=== PATIENT | female | born 1980 | race Caucasian/White ===

== ENCOUNTER 2019-06-07 08:44 | Emergency (ER) | payer MEDICAID, SELFPAY ==
[2019-06-07 08:53] VITALS: PULSE 92; RESP 16; TEMP 36.7; O2SAT 98; BMI 23.8
--- NOTE | 2019-06-07 08:56 | ED_ITS ---
Entered by Dontrell Choe, acting as scribe for Naga Coreas DO Jun 07, 2019 08:44 HPI - Eye Problem General: Chief complaint: Eye Problems Stated complaint: Right eye pain Time Seen by Provider: 06/07/19 08:47 History of Present Illness: HPI Narrative: 39 yo female presents with right eye pain. Pt states that she rubbed her right eye, she felt like something is in it. Pt states that she might of had something on her hands when she rubbed her eye. chief complaint: eye pain and eye redness Onset (ago): day(s) Onset description: sudden Duration: constant Location: right eye Eye Symptoms: burning, redness and pain Place: home Severity: moderate If Pain, Quality: sharp Associated symptoms: Denies fever(s), headache(s), nausea, neck pain or vomiting Review of Systems Const: Denies: fever, chills, body aches, fatigue, malaise or night sweats Eyes: Reports: blurry vision and eye redness; Denies: change in vision ENMT: Denies: throat pain, oral sores/lesions, dental pain, nasal discharge or nasal congestion Card: Denies: chest pain, palpitations, irregular heart rhythm, edema, syncope, shortness of breath on exertion, shortness of breath when lying down or leg pain with exertion Resp: Denies: shortness of breath, productive cough, non-productive cough or wheezing GI: Denies: abdominal pain, nausea, vomiting, vomiting blood, coffee grounds in vomit, difficulty swallowing, heartburn/indigestion, diarrhea, constipation, cramping, blood in stool or black tarry stool : Denies: flank pain, painful urination, urinary frequency, urinary urgency, urinary incontinence or blood in urine Musc: Denies: neck pain, back pain, extremity pain, extremity swelling, joint pain or joint swelling Skin/Breast: Denies: rash, itching or redness Neuro: Denies: headache, numbness in extremities, weakness in extremities, changes in sensation, lack of coordination, difficulty walking, frequent falls, dizziness, vertigo or confusion Psych: Denies: anxiety, depression, loss of interest, visual hallucinations, auditory hallucinations, suicidal ideation or homicidal ideation Endo: Denies: excessive urination, excessive thirst, tired all the time or cold intolerance Tab/Lymph: Denies: easy bruising, easy bleeding, petechiae, enlarged lymph nodes or tender lymph nodes PFSH ED PFSH: Statuses (acute, chronic, etc) shown below reflect problem list status as previously entered and may not be historically accurate Social History Smoking and tobacco status: current every day smoker Physical Exam Const: COMMON NORMALS: average body habitus, oriented x3 and alert GENERAL APPEARANCE: cooperative, comfortable and well developed NUTRITIONAL APPEARANCE: not obese ORIENTATION/CONSCIOUSNESS: Yes awake, Yes oriented to person and Yes oriented to place HENMT: COMMON NORMALS: normocephalic, head/scalp atraumatic, EAC's normal, TM's normal bilaterally, external nose normal, moist oral mucous membranes and oropharynx normal HEAD & SCALP: normocephalic and atraumatic NOSE: external nose normal EXTERNAL AUDITORY CANAL: EAC's normal TYMPANIC MEMBRANE: TM's normal bilaterally MOUTH: oral and palatal mucosa normal, lip normal and tongue normal THROAT: posterior oropharynx normal and tonsils normal Eye: COMMON NORMALS: PERRL PUPIL: Yes PERRL Neck/C-Spine: COMMON NORMALS: full ROM, no lymphadenopathy, supple, no meningeal signs and thyroid normal THYROID: thyroid normal and asymmetrical Lymph: LYMPHATIC: no lymphadenopathy noted Resp: COMMON NORMALS: normal respiratory effort, no retractions, no use of accessory muscles and clear to auscultation bilaterally AUSCULTATION: clear to auscultation bilaterally Cardio: COMMON NORMALS: regular rate and regular rhythm RATE: regular rate RHYTHM: regular rhythm HEART SOUNDS: no murmurs Extremity: COMMON NORMALS: no clubbing, cyanosis or edema, no calf tenderness and no pedal edema Neuro: COMMON NORMALS: oriented x3 SENSORIUM/ORIENTATION: Yes alert, Yes oriented to person and Yes oriented to place MENINGEAL SIGNS: Yes no meningeal signs Course ED course: Initially seen and examined the patient I did not do a fluorescein dye exam of the cornea. I was called to another case and asked my midlevel Lilibethronaldo Jaeger to complete the exam and discharge the patient. See her note for corneal exam as well as for discharge instructions. Vital Signs: Vital signs: Vital Signs Temperature 98.0 F 06/07/19 08:53 Pulse Rate 75 06/07/19 10:24 Respiratory Rate 14 06/07/19 10:24 Blood Pressure 99/64 06/07/19 10:24 Pulse Oximetry 99 06/07/19 10:24 Discharge Plan Discharge Patient Disposition: Home, Self-Care Clinical Impression: Corneal abrasion Qualifiers: Encounter type: initial encounter Laterality: right Qualified Code(s): S05.01XA - Injury of conjunctiva and corneal abrasion without foreign body, right eye, initial encounter Condition: Stable Prescriptions: New erythromycin 5 mg/gram (0.5 %) ointment 1 applic ophthalmic (eye) 5XD Qty: 1 RF: 0 Discharge Orders: Discharge Order (Routine); Ordered 06/07/19 Ordered By: Lilibeth Jaeger Referrals: Julián Yañez MD [Family Provider] - Discharge Diet: Usual diet Discharge Activity: Resume usual activity Activity Restrictions/Additional Instructions: Follow up with eye doctor in 3-5 days for continual/non-improving pain. Discharge Date/Time: 06/07/19 10:24 Coding Level of Care Code ED Communications Associate for Chg Fwd Exam Problem Focused The documentation recorded by the Дмитрий tovar Kialy, accurately reflects the service I personally performed and the decisions made by Joss lemus Curtis L, DO Jun 07, 2019 08:44
[2019-06-07] MEDS: tetanus-diphtheria tox (adult) 0.5 mL SDV IM (10:18)
[2019-06-07] MEDS: erythromycin Op Oint 1 gm 1 APPLIC EYE-RIGHT (10:18)
[2019-06-07 10:24] VITALS: BP 99/64; PULSE 75; RESP 14; O2SAT 99
--- NOTE | 2019-06-12 10:02 | W.ED.EYEPROB ---
HPI - Eye Problem General: Chief complaint: Eye Problems Stated complaint: Right eye pain Time Seen by Provider: 06/07/19 08:47 History of Present Illness: HPI Narrative: I was consulted by Dr. Coreas to perform eye exam on patient. She tells me she rubbed her eye this morning and thinks maybe she scratched it. PFS ED PFSH: Statuses (acute, chronic, etc) shown below reflect problem list status as previously entered and may not be historically accurate Social History Smoking and tobacco status: current every day smoker Physical Exam Eye: COMMON NORMALS: PERRL, EOMs intact bilaterally, no scleral icterus and normal visual casanova by confrontation GENERAL EYE: normal light reflex VISUAL ACUITY: Yes acuity normal VISUAL CASANOVA: No peripheral vision loss ALIGNMENT: Yes alignment normal PERIORBITAL: periorbital findings normal EYELID: eyelids normal CONJUNCTIVA: Yes conjunctiva abnormal (mild injection-R) SCLERA: sclerae normal CORNEA: Yes fluorescein used (pt had a small corneal abrasion to inferior aspect-R) PUPIL: Yes PERRL and Yes accommodation reflex normal DIRECT OPHTHALMOSCOPY: Yes normal light reflex OTHER: no fb visualized; eye exam normal apart from very small corneal abrasion-she was treated with erythromycin eye ointment here and will be given RX for same Course Vital Signs: Vital signs: Vital Signs Temperature 98.0 F 06/07/19 08:53 Pulse Rate 75 06/07/19 10:24 Respiratory Rate 14 06/07/19 10:24 Blood Pressure 99/64 06/07/19 10:24 Pulse Oximetry 99 06/07/19 10:24 MDM - Eye Problem MDM Narrative: Medical decision making narrative: Was given instructions for eye care at home. Recommend follow up with eye provider in 3 days if no improvement with RX ointment. Strict return to ED precautions given regarding worsening pain, any visual changes, discharge, or other concerns she may have. Discharge Plan Discharge Patient Disposition: Home, Self-Care Clinical Impression: Corneal abrasion Qualifiers: Encounter type: initial encounter Laterality: right Qualified Code(s): S05.01XA - Injury of conjunctiva and corneal abrasion without foreign body, right eye, initial encounter Condition: Stable Prescriptions: New erythromycin 5 mg/gram (0.5 %) ointment 1 applic ophthalmic (eye) 5XD Qty: 1 RF: 0 Discharge Orders: Discharge Order (Routine); Ordered 06/07/19 Ordered By: Lilibeth Jaeger Referrals: Julián Yañez MD [Family Provider] - Discharge Diet: Usual diet Discharge Activity: Resume usual activity Activity Restrictions/Additional Instructions: Follow up with eye doctor in 3-5 days for continual/non-improving pain. Discharge Date/Time: 06/07/19 10:24 Coding Level of Care Code ED Director Of Occupational Health for Yung Melendez
== END 2019-06-07 10:24 | disposition home or self-care (01) ==
PROVIDERS: Emergency Provider Family Medicine; Family Provider Family Medicine
DX: S05.01XA Injury of conjunctiva and corneal abrasion without foreign body, right eye, initial encounter (principal); F17.210 Nicotine dependence, cigarettes, uncomplicated; X58.XXXA Exposure to other specified factors, initial encounter
CPT/HCPCS: 90472; 90714; 99281; 99282

== ENCOUNTER 2020-02-11 18:53 | Emergency (ER) | payer SELFPAY ==
[2020-02-11 19:06] VITALS: BP 117/81; PULSE 94; RESP 12; TEMP 36.3; O2SAT 97; BMI 23.8
[2020-02-11] MEDS: tetracaine 0.5% Op Soln 4 mL Btl 1 DROP EYE-RIGHT (19:19)
[2020-02-11] MEDS: eye irrigation 30 mL Btl 10 DROP EYE-RIGHT (19:19)
[2020-02-11] MEDS: fluorescein 1 mg Strip EYE-RIGHT (19:19)
[2020-02-11] MEDS: tobramycin-dexametha Op Susp 5 mL Btl 1 DROP EYE-RIGHT (19:42)
[2020-02-11] MEDS: TRAMadol 50 mg Tablet PO (19:42)
[2020-02-11 19:47] VITALS: PULSE 74; RESP 16; O2SAT 98
--- NOTE | 2020-02-11 21:30 | W.ED.EYEPROB ---
HPI - Eye Problem General: Chief complaint: Eye Problems Stated complaint: eye issues with right eye Time Seen by Provider: 02/11/20 19:13 History of Present Illness: HPI Narrative: Patient states that dog scratched her eye yesterday and her eyes hurt since then. Patient states she has had no drainage from the eye that light is bothering her eyes. Denies any other problems patient states tetanus is up-to-date less than 5 years MD chief complaint: eye injury Onset (ago): hour(s) Onset description: sudden Duration: constant and progressively worsening Location: right eye Eye Symptoms: burning, pain and photophobia Place: home Mechanism: direct trauma Severity: moderate Severity scale (1-10): 6 If Pain, Quality: aching Associated symptoms: Reports no associated symptoms; Denies fever(s) Treatments Prior to Arrival: none Review of Systems Const: Denies: fever(s) or chills Eyes: Reports: photophobia, eye discomfort, eye redness and increased production of tears Psych: Denies: anxiety or depression PFSH ED PFSH: Social History Smoking and tobacco status: current every day smoker Physical Exam Const: COMMON NORMALS: no acute distress Eye: COMMON NORMALS: conjunctivae normal GENERAL EYE: normal light reflex VISUAL ACUITY: Yes acuity normal (Unable due to pain) EYELID: eyelids normal CONJUNCTIVA: Yes conjunctivae normal CORNEA: Yes fluorescein used (Has abrasion to 6 o'clock position on the cornea) DIRECT OPHTHALMOSCOPY: Yes normal light reflex Course Vital Signs: Vital signs: Vital Signs Temperature 97.3 F L 02/11/20 19:06 Pulse Rate 74 02/11/20 19:47 Respiratory Rate 16 02/11/20 19:47 Blood Pressure 117/81 02/11/20 19:06 Pulse Oximetry 98 02/11/20 19:47 Discharge Plan Discharge Patient Disposition: Home Clinical Impression: Corneal abrasion Qualifiers: Encounter type: initial encounter Laterality: right Qualified Code(s): S05.01XA - Injury of conjunctiva and corneal abrasion without foreign body, right eye, initial encounter Condition: Stable Prescriptions: New gentamicin 0.3 % drops 1 drop ophthalmic (eye) Q4H 3 Days Qty: 5 RF: 0 No Action erythromycin 5 mg/gram (0.5 %) ointment 1 applic ophthalmic (eye) 5XD Qty: 1 RF: 0 Discharge Orders: Discharge Order (Routine); Ordered 02/11/20 Ordered By: Haider Ricketts Referrals: Julián Yañez MD [Primary Care Provider] - Discharge Diet: Advance as tolerated Discharge Activity: Resume usual activity Patient Instructions: Corneal Abrasion (ED) Activity Restrictions/Additional Instructions: Follow-up with medical provider as directed. Take medications as prescribed. Return to the ER or your medical provider if condition worsens. Please read and understand discharge instructions. If any questions ask please. Apply 1 drop every 4 hours follow-up with eye doctor on Wednesday Discharge Date/Time: 02/11/20 19:49 Coding Level of Care Code ED Custodial Services Manager for Yung Melendez
== END 2020-02-11 19:49 | disposition home or self-care (01) ==
PROVIDERS: Emergency Provider Nurse Practitioner Family; PCP Family Medicine
DX: S05.01XA Injury of conjunctiva and corneal abrasion without foreign body, right eye, initial encounter (principal); F17.210 Nicotine dependence, cigarettes, uncomplicated; W54.8XXA Other contact with dog, initial encounter
CPT/HCPCS: 12345; 99281; 99283

== ENCOUNTER 2020-08-06 18:38 | Emergency (ER) | payer SELFPAY ==
[2020-08-06 18:46] VITALS: BP 110/75; PULSE 111; RESP 18; TEMP 36.2; O2SAT 100; BMI 25.4
--- NOTE | 2020-08-06 21:11 | W.ED.BACK ---
HPI - Back Pain/Injury General: Chief Complaint: Back Pain/Injury Stated Complaint: Back/ABD Pain Time Seen by Provider: 08/06/20 21:05 History of Present Illness: HPI Narrative: Patient states he got pelvic chair and twisted wrong and now she has pain goes down her right hip and up the side of her back. This happened earlier today. MD elicited complaint: back pain Pertinent past history: prior back pain Onset (ago): hour(s) Timing: constant Similar Symptoms Previously: Yes Quality: burning and aching Location: lumbar spine and right lower back Radiation: buttocks Exacerbating factors: movement Relieving factors: immobilization Context: turning/twisting Associated symptoms: Reports no associated symptoms; Deny abdominal pain, chills, fever(s), nausea or vomiting Review of Systems Const: Denies: fever(s), chills or body aches Eyes: Denies: change in vision or blurry vision ENMT: Denies: throat pain or nasal congestion Card: Denies: chest pain or dyspnea on exertion Resp: Denies: dyspnea, productive cough or non-productive cough GI: Denies: abdominal pain, nausea or vomiting Musc: Reports: back pain and extremity pain Skin/Breast: Denies: rash Neuro: Denies: headache(s) Psych: Denies: anxiety or depression Tab/Lymph: Denies: easy bruising PFSH ED PFSH: Social History Smoking and tobacco status: current every day smoker Female Reproductive History: Date of last menstrual period: 08/05/20 Physical Exam Const: COMMON NORMALS: no acute distress, average body habitus and patient oriented x3 HENMT: COMMON NORMALS: normocephalic HEAD & SCALP: normal to inspection and normocephalic FACE & SINUS: normal facial exam Eye: COMMON NORMALS: conjunctivae normal GENERAL EYE: appearance normal, both eyes and all related structures CONJUNCTIVA: Yes conjunctivae normal Neck/C-Spine: COMMON NORMALS: no JVD Chest: COMMONS NORMALS: normal inspection of the chest Resp: COMMON NORMALS: normal respiratory effort and clear to auscultation bilaterally AUSCULTATION: clear to auscultation bilaterally Cardio: COMMON NORMALS: no JVD, regular rate and regular rhythm RATE: regular rate RHYTHM: regular rhythm GI: COMMON NORMALS: Normal to inspection, nondistended, normoactive bowel sounds present Back/Pelvis: LUMBAR SPINE/LOWER BACK: Yes lumbar ROM normal, Yes paraspinal muscle tenderness, Yes paraspinal muscle spasm and Yes straight leg raise positive right Extremity: COMMON NORMALS: normal to inspection and full ROM Neuro: COMMON NORMALS: patient oriented x3 Course Vital Signs: Vital signs: Vital Signs Temperature 97.2 F L 08/06/20 18:46 Pulse Rate 89 08/06/20 21:56 Respiratory Rate 16 08/06/20 21:56 Blood Pressure 132/78 08/06/20 21:56 Pulse Oximetry 100 08/06/20 21:56 MDM - Back Pain/Injury MDM Narrative: Medical decision making narrative: Patient had back pain after getting about the chair she has had symptoms similar to that. She has not taking medication to help with this since it occurred. Denies any other problems. Discharge Plan Discharge Patient Disposition: Home Clinical Impression: Sciatica Qualifiers: Laterality: right Qualified Code(s): M54.31 - Sciatica, right side Condition: Stable Prescriptions: New prednisone 20 mg tablet 20 mg PO DAILY Qty: 7 RF: 0 cyclobenzaprine 5 mg tablet 5 mg PO TID PRN (Reason: muscle spasm) Qty: 7 RF: 0 No Action erythromycin 5 mg/gram (0.5 %) ointment 1 applic ophthalmic (eye) 5XD Qty: 1 RF: 0 Discharge Orders: Discharge ED (Routine); Ordered 08/06/20 Ordered By: Haider Ricketts Referrals: Julián Yañez MD [Primary Care Provider] - Discharge Diet: Usual diet Discharge Activity: Increase activity as tolerated Patient Instructions: Sciatica (ED) Activity Restrictions/Additional Instructions: Follow-up with medical provider as directed. Take medications as prescribed. Return to the ER or your medical provider if condition worsens. Please read and understand discharge instructions. If any questions ask please. No lifting over 10 pounds for next week or 2. Please use ice to areas of discomfort. Coding Level of Care Code ED Activities Coordinator for Yung Fwd Exam Comprehensive
[2020-08-06] MEDS: predniSONE 20 mg Tablet 60 MG PO (21:33)
[2020-08-06] MEDS: cyclobenzaprine 10 mg Tablet 5 MG PO (21:33)
--- NOTE | 2020-08-06 21:50 | PC.NURSE ---
Addendum entered by Lorena Aguilar RN 08/06/20 21:56: Jamarcus THEATER TECHNICIAN provider rather than physician. Original Note: Physician provided assessment and treatment and pt discharged before nursing assessment performed.
[2020-08-06 21:56] VITALS: BP 132/78; PULSE 89; RESP 16; O2SAT 100
== END 2020-08-06 22:00 | disposition home or self-care (01) ==
PROVIDERS: Emergency Provider Nurse Practitioner Family; PCP Family Medicine
DX: M54.31 Sciatica, right side (principal); F17.210 Nicotine dependence, cigarettes, uncomplicated
CPT/HCPCS: 99283; J7512

== ENCOUNTER 2021-01-01 23:46 | Emergency (ER) | payer MEDICAID, SELFPAY ==
[2021-01-01 23:59] VITALS: BP 100/71; PULSE 105; RESP 24; TEMP 36.7; O2SAT 97; BMI 24.5
--- NOTE | 2021-01-02 00:30 | XRR_ITS ---
PROCEDURE INFORMATION: Exam: XR Lumbosacral Spine Exam date and time: 01/02/2021 12:30 AM Age: 40 years old Clinical indication: Low back pain; Patient HX: Worsening back pain without injury. History of sciatica. TECHNIQUE: Imaging protocol: XR of the lumbosacral spine. Views: 2 or 3 views. COMPARISON: CT abdomen pelvis w con* [id number] 06/18/2015 4:14 AM FINDINGS: Bones/joints: The pedicles are intact. There is normal vertebral body alignment. There are normal vertebral body heights. Disc spaces are symmetric and maintained. No fracture. Soft tissues: Unremarkable. Gastrointestinal tract: Mild amount of formed stool in the colon. XR/XR lumbar spine 2-3V* [id number] IMPRESSION: Mild constipation. Otherwise, negative examination.
--- NOTE | 2021-01-02 00:30 | XRR_ITS ---
PROCEDURE INFORMATION: Exam: XR Thoracic Spine Exam date and time: 01/02/2021 12:30 AM Age: 40 years old Clinical indication: Pain in thoracic spine; Patient HX: Worsening back pain without injury. History of sciatica. TECHNIQUE: Imaging protocol: XR of the thoracic spine. Views: 3 views. COMPARISON: CR Chest 2 views* [id number] 05/18/2017 6:40 PM FINDINGS: Bones/joints: There is normal vertebral body alignment. There are normal vertebral body heights. Disc spaces are symmetric and maintained. The pedicles are intact. No fracture. Soft tissues: Unremarkable. XR/XR thoracic spine 3V* [id number] IMPRESSION: Negative examination.
--- NOTE | 2021-01-02 00:33 | W.ED.BACK ---
HPI - Back Pain/Injury General: Chief Complaint: Back Pain/Injury Stated Complaint: back pain Time Seen by Provider: 01/02/21 00:17 History of Present Illness: HPI Narrative: 40-year-old female comes in with mid back pain. Patient reports that she has been having back pain for the last 3 months. Patient has had worsening pain over the last 2 days. On exam patient appears in mild to moderate pain. Patient appears no acute distress. Review of Systems General: Reports: 10 or more systems reviewed and unremarkable except in HPI and below Musc: Reports: back pain PFSH ED PFSH: Social History Smoking and tobacco status: current every day smoker Female Reproductive History: Date of last menstrual period: 12/08/20 Physical Exam Const: COMMON NORMALS: no acute distress and patient oriented x3 GENERAL APPEARANCE: cooperative HENMT: COMMON NORMALS: normocephalic and Normal external nose present HEAD & SCALP: normal to inspection and normocephalic NOSE: Normal external nose present MOUTH: Normal oral and palatal mucosa present Eye: GENERAL EYE: appearance normal, both eyes and all related structures Neck/C-Spine: COMMON NORMALS: full ROM Lymph: LYMPHATIC: no lymphadenopathy noted Chest: COMMONS NORMALS: normal inspection of the chest Resp: COMMON NORMALS: normal respiratory effort EFFORT & INSPECTION: Yes able to speak in complete sentences Cardio: COMMON NORMALS: regular rate and regular rhythm RATE: regular rate RHYTHM: regular rhythm GI: COMMON NORMALS: non-tender : COMMON NORMALS: Yes no CVA tenderness BLADDER/KIDNEY EXAM: Yes no CVA tenderness Back/Pelvis: COMMON NORMALS: no CVA tenderness THORACIC SPINE/UPPER BACK: Yes thoracic spinal tenderness T-spine tenderness location: T11 and T12 Extremity: COMMON NORMALS: normal to inspection Neuro: COMMON NORMALS: patient oriented x3 and moves all extremities Psych: COMMON NORMALS: mental status grossly normal and cooperative Skin: COMMON NORMALS: no rashes or lesions noted GENERAL SKIN EXAM: no rashes or lesions noted Course Vital Signs: Vital signs: Vital Signs Temperature 98.1 F 01/01/21 23:59 Pulse Rate 105 H 01/01/21 23:59 Respiratory Rate 24 H 01/01/21 23:59 Blood Pressure 100/71 01/01/21 23:59 Pulse Oximetry 97 01/01/21 23:59 MDM - Back Pain/Injury MDM Narrative: Medical decision making narrative: Patient comes in with mid back pain. On exam she is tender to palpation of the midline of the lower thoracic upper lumbar area of the back. Patient also has some bilateral muscle tenderness. Differential diagnosis includes intervertebral disc disease, facet arthropathy, muscle strain. X-rays of the lumbar and thoracic spine were nonacute. Patient was recommended to continue with naproxen and Flexeril for her pain. Courage patient to drink plenty of fluids. And follow-up with primary care in 5 days. Case management was requested to assist with primary care follow-up. Discharge Plan Discharge Patient Disposition: Home Clinical Impression: Thoracic back pain Qualifiers: Chronicity: unspecified Back pain laterality: midline Qualified Code(s): M54.6 - Pain in thoracic spine Condition: Stable Prescriptions: New naproxen 500 mg tablet 500 mg PO BID Qty: 30 RF: 0 cyclobenzaprine 10 mg tablet 10 mg PO BID PRN (Reason: muscle spasm) Qty: 10 RF: 0 No Action erythromycin 5 mg/gram (0.5 %) ointment 1 applic ophthalmic (eye) 5XD Qty: 1 RF: 0 prednisone 20 mg tablet 20 mg PO DAILY Qty: 7 RF: 0 cyclobenzaprine 5 mg tablet 5 mg PO TID PRN (Reason: muscle spasm) Qty: 7 RF: 0 Discharge Orders: Discharge ED (Routine); Ordered 01/02/21 Ordered By: Ascencion Bolton Referrals: Julián Yañez MD [Primary Care Provider] - Discharge Diet: Usual diet Discharge Activity: Increase activity as tolerated Patient Instructions: Back Pain (ED), Opioid Safety Activity Restrictions/Additional Instructions: Activity as tolerated. Gentle stretching and range of motion exercises. Take medications as directed. Follow-up with primary care in 5 days for recheck. Return to the ER for new concerns. Stand Alone Forms: Work/School Release Coding Level of Care Code ED Cotton Chopper for Chg Fwd Exam Comprehensive
[2021-01-02] MEDS: HYDROcodone-acetaminophen 5-325 mg Tablet 1 TAB PO (00:34)
[2021-01-02] MEDS: ketorolac 30 mg/mL INJ IM (00:34)
[2021-01-02] MEDS: orphenadrine 30 mg/mL Inj 2 mL 60 MG IM (00:35)
[2021-01-02 01:19] VITALS: BP 99/69; PULSE 85; RESP 18; TEMP 37.1; O2SAT 96
--- NOTE | 2021-01-02 09:39 | DCPLANNER ---
energy manager had message to speak with patient about a primary care physician. energy manager called phone number [phone], unable to speak with patient and unable to leave a voicemail for patient.
== END 2021-01-02 01:25 | disposition home or self-care (01) ==
LOC: ER 01-02 01:08
PROVIDERS: Emergency Provider Nurse Practitioner Family; PCP Family Medicine
DX: M54.6 Pain in thoracic spine (principal); F17.210 Nicotine dependence, cigarettes, uncomplicated
CPT/HCPCS: 72072; 72100; 96372; 99283; J1885; J2360

== ENCOUNTER 2021-04-07 13:43 | Emergency (ER) | payer MEDICAID, SELFPAY ==
[2021-04-07 14:40] VITALS: BP 114/66; PULSE 120; RESP 20; TEMP 36.8; O2SAT 99; BMI 25.4
[2021-04-07 15:25] VITALS: BP 116/66; PULSE 115; RESP 18; O2SAT 97
--- NOTE | 2021-04-07 16:01 | W.ED.BACK ---
HPI - Back Pain/Injury General: Chief Complaint: Back Pain/Injury Stated Complaint: BACK PAIN Time Seen by Provider: 04/07/21 15:21 Source: patient Mode of arrival: ambulatory Limitations: no limitations History of Present Illness: HPI Narrative: 41-year-old female presents to the ER today for mid back pain that began today. Patient reports she was shooting her bow and arrow and when she pulled back she felt a pop in her mid back. Patient reports pain is constant but intermittently she has muscle spasms. Pain is located mid line and on both sides of her spine. Patient reports a history of chronic back pain but this does feel slightly different. Patient reports she only has ibuprofen at home but she has not taken or done anything for the pain at this time. Patient rates her pain a 10 out of 10. Patient denies any loss of bowel or bladder control. Denies any numbness or tingling. MD elicited complaint: back pain Pertinent past history: prior back pain Onset (ago): hour(s) Timing: constant Severity: severe Similar Symptoms Previously: Yes Quality: sharp, stabbing and aching Location: thoracic spine Radiation: none Exacerbating factors: movement Relieving factors: none Context: turning/twisting Associated symptoms: Reports no associated symptoms; Deny abdominal pain, chills, fever(s), nausea or vomiting Treatments prior to arrival: other (None) Work related injury: No Review of Systems General: Reports: 10 or more systems reviewed and unremarkable except in HPI and below Const: Denies: fever(s), chills or body aches ENMT: Denies: throat pain, nasal discharge or nasal congestion Card: Denies: chest pain or palpitations Resp: Denies: dyspnea, productive cough or wheezing GI: Denies: abdominal pain, nausea, vomiting, diarrhea or constipation Musc: Reports: back pain Skin/Breast: Denies: rash Neuro: Denies: headache(s) PFSH ED PFSH: Social History Smoking and tobacco status: current every day smoker Female Reproductive History: Date of last menstrual period: 03/14/21 Physical Exam Const: COMMON NORMALS: average body habitus and patient oriented x3 GENERAL APPEARANCE: cooperative and in distress; not comfortable HENMT: COMMON NORMALS: normocephalic, external ears normal and Normal external nose present HEAD & SCALP: normocephalic NOSE: Normal external nose present EXTERNAL EAR: Yes external ears normal Neck/C-Spine: COMMON NORMALS: full ROM Resp: COMMON NORMALS: normal respiratory effort and No retractions EFFORT & INSPECTION: Yes able to speak in complete sentences Cardio: COMMON NORMALS: regular rate and regular rhythm RATE: regular rate RHYTHM: regular rhythm Back/Pelvis: THORACIC SPINE/UPPER BACK: Yes pain with ROM, Yes thoracic spinal tenderness, Yes paraspinal muscle tenderness and Yes paraspinal muscle spasm LUMBAR SPINE/LOWER BACK: Yes normal to inspection and Yes lumbar ROM normal Extremity: COMMON NORMALS: full ROM Neuro: COMMON NORMALS: patient oriented x3 and moves all extremities Psych: COMMON NORMALS: mental status grossly normal and Normal thought process present THOUGHT PROCESS: Normal thought process present Skin: COMMON NORMALS: no rashes or lesions noted GENERAL SKIN EXAM: no rashes or lesions noted Course ED course: Patient presents today for mid back pain. Given the mechanism of injury, this is unlikely bony in nature. This appears to be muscle spasms likely from a mid back strain. Discussed that an x-ray would not show us anything to change the treatment plan. Vital Signs: Vital signs: Vital Signs Temperature 98.3 F 04/07/21 14:40 Pulse Rate 115 H 04/07/21 15:25 Respiratory Rate 18 04/07/21 15:25 Blood Pressure 116/66 04/07/21 15:25 Pulse Oximetry 97 04/07/21 15:25 MDM - Back Pain/Injury MDM Narrative: Medical decision making narrative: 41-year-old female presents to the ER today for mid back pain that began after she was shooting her bow and arrow this afternoon. Patient reports it was a twisting injury. She reports chronic back pain but this is in a slightly different area. Patient reports pain is worse with any movements. She denies any radiating pain denies any loss of bowel or bladder control. Patient has not taken anything for pain at this time. She has not tried any heat or ice either. An x-ray will not change her treatment plan at this point. It is unlikely an x-ray would show anything given this is muscle more than bony in nature. We will treat with a steroid, muscle relaxer, and anti-inflammatory. Also recommended conservative treatment including warm, moist heat alternating with ice, and topical muscle rub that is not to be used with heat and ice. If pain persist beyond 7 to 10 days follow-up with PCP. Return to the ER with any new or worsening symptoms. Patient verbalized understanding and is in agreement with this treatment plan. Patient was offered something for pain in the ER and refused at this time. Critical Care Time Critical Care Time: Critical Care Time: No Discharge Plan Discharge Patient Disposition: Home Clinical Impression: Thoracic back pain Qualifiers: Chronicity: acute Back pain laterality: bilateral Qualified Code(s): M54.6 - Pain in thoracic spine Condition: Stable Prescriptions: New Medrol (Isac) 4 mg tablets,dose pack See Rx Instructions PO .COMPLEX Qty: 21 RF: 0 methocarbamol 750 mg tablet 750 mg PO Q8H Qty: 21 RF: 0 ketorolac 10 mg tablet 10 mg PO Q8H PRN (Reason: pain) 3 Days RF: 0 No Action erythromycin 5 mg/gram (0.5 %) ointment 1 applic ophthalmic (eye) 5XD Qty: 1 RF: 0 prednisone 20 mg tablet 20 mg PO DAILY Qty: 7 RF: 0 cyclobenzaprine 5 mg tablet 5 mg PO TID PRN (Reason: muscle spasm) Qty: 7 RF: 0 naproxen 500 mg tablet 500 mg PO BID Qty: 30 RF: 0 cyclobenzaprine 10 mg tablet 10 mg PO BID PRN (Reason: muscle spasm) Qty: 10 RF: 0 Discharge Orders: Discharge ED (Routine); Ordered 04/07/21 Ordered By: Carolyn Mendez Referrals: Julián Yañez MD [Primary Care Provider] - Discharge Diet: Usual diet Discharge Activity: Limit activity as instructed Patient Instructions: Back Pain (ED), Opioid Safety Activity Restrictions/Additional Instructions: Take Medrol Dosepak, ketorolac, and Robaxin as prescribed. Do not take ibuprofen in addition to the ketorolac. Stop any home muscle relaxers you are taking or steroids you are taking. Warm moist heat recommended to the mid back area where pain is located. Alternate with ice. Topical muscle rub recommended, but do not use with heat or ice. Rest recommended. Follow-up with PCP in 7 to 10 days if no improvement. Return to the ER with new or worsening symptoms. Coding Level of Care Code ED Corporate Communications Associate for Yung Melendez
== END 2021-04-07 16:20 | disposition home or self-care (01) ==
PROVIDERS: Emergency Provider Physician Assistant; PCP Family Medicine
DX: M54.6 Pain in thoracic spine (principal); F17.210 Nicotine dependence, cigarettes, uncomplicated
CPT/HCPCS: 99281

== ENCOUNTER 2021-08-21 08:14 | Emergency (ER) | payer BC, MEDICAID, SELFPAY ==
[2021-08-21 08:51] VITALS: BP 148/91; PULSE 61; RESP 20; TEMP 36.3; O2SAT 96; BMI 24.5
--- NOTE | 2021-08-21 09:06 | CT_ITS ---
WS: [id number] CT ABDOMEN AND PELVIS WITH CONTRAST HISTORY: periumbilical abdominal pain, n/v TECHNIQUE: Imaging performed of the abdomen and pelvis with IV contrast. Single phase imaging of the abdomen. Coronal and sagittal reformats are submitted. All CT scans at [facility] use at [facility] one of these dose optimization techniques: automated exposure control; mA and/or kV adjustment per patient size (includes targeted exams where dose is matched to clinical indication); or iterative re construction. IV CONTRAST: Omnipaque 300; 95 mL IV. Oral contrast: No DLP: 1021.8 mGy.cm COMPARISON: 06/18/2015 Lower thorax: Lung bases are clear. Heart is normal size. No hiatal hernia. Liver/biliary system: Normal size liver. Very minimal periportal edema. No mass or bile duct dilatati on or ascites. Normal portal vein. Gallbladder: Contracted gallbladder without adjacent inflammation. The common bile duct to the pancre atic head is normal. Pancreas: Normal size pancreas and pancreatic duct. No adjacent inflammation. Spleen: Normal size spleen. No mass or infarct. Adrenal glands: Normal. Right kidney: Normal. Left kidney: Normal. Aorta: Normal. Lymphadenopathy: None. Free fluid: None. GI tract: Stomach is distended with fluid. No small bowel obstruction. The appendix is normal. Colon is normal. Abdominal wall: Unremarkable abdominal wall. No hernia. Pelvis: Uterus is mildly prominent and retroverted. No free fluid in the cul-de-sac. 2.2 cm RIGHT ova balwinder follicle. Bones: Unremarkable. CT/CT abdomen pelvis w con* [id number] IMPRESSION: 1. Normal appendix. 2. Contracted gallbladder without adjacent inflammatory changes. Probably due to nonfasting state. 3. No renal obstruction. 4. Very mild periportal edema. This can be seen with excessive IV fluid hydrat ion and hepatitis. 5. No free fluid or ascites.
--- NOTE | 2021-08-21 09:07 | W.ED.ABDPA2 ---
HPI - Abdominal Pain General: Chief Complaint: Abdominal Pain Stated Complaint: N/V, dizziness Time Seen by Provider: 08/21/21 08:27 History of Present Illness: Patient is a 41-year-old female comes to the ED with abdominal pain. Last night patient describes having a stomachache. Today she woke up with abdominal pain its in the epigastric region along with nausea and vomiting. Abdominal she rates as a 10 out of 10. She has had similar episodes like this before but they usually occur when she is . She is not currently on any acid reflux medication. Emesis is described as a dark coffee ground appearance along with bile. Associated Symptoms: Reports nausea and vomiting; Denies chills, constipation, diarrhea, dysuria, fever(s), hematochezia and hematuria Related Data: Date of Last Menstrual Period: 08/08/21 Review of Systems Const: Denies: fever(s), chills or fatigue Eyes: Denies: change in vision or eye discomfort ENMT: Denies: throat pain, odynophagia, nasal discharge or nasal congestion Card: Denies: chest pain, palpitations, edema, swelling of feet/ankles, dyspnea on exertion or orthopnea Resp: Denies: dyspnea, productive cough or non-productive cough GI: Reports: abdominal pain, nausea and vomiting; Denies: diarrhea, constipation or hematochezia : Denies: flank pain, dysuria or hematuria Musc: Denies: neck pain, back pain or extremity swelling Skin/Breast: Denies: rash or new lesions Neuro: Denies: headache(s), numbness in extremities or weakness in extremities PFS ED PFSH: Medical History No pertinent family history No pertinent past medical history Social History Smoking and tobacco status: current every day smoker Female Reproductive History: Date of last menstrual period: 08/08/21 Physical Exam Narrative: EXAM NARRATIVE: Patient is a 41-year-old female that appears ill upon exam. She is actively vomiting during exam. Const: COMMON NORMALS: patient oriented x3 and alert GENERAL APPEARANCE: cooperative HENMT: COMMON NORMALS: normocephalic HEAD & SCALP: normocephalic MOUTH: Normal oral and palatal mucosa present THROAT: posterior oropharynx normal and uvula midline Neck/C-Spine: COMMON NORMALS: supple GENERAL: Yes normal visual inspection Resp: COMMON NORMALS: normal respiratory effort, No retractions, No use of accessory muscles and clear to auscultation bilaterally AUSCULTATION: clear to auscultation bilaterally Cardio: COMMON NORMALS: regular rate, regular rhythm, S1 normal heart sound present, S2 normal heart sound present, No gallops present (Cardio), No clicks present (Cardio), No murmurs present (Cardio) and Peripheral pulses 2+ throughout RATE: regular rate RHYTHM: regular rhythm HEART SOUNDS: S1 normal heart sound present and S2 normal heart sound present PERIPHERAL PULSES: Peripheral pulses 2+ throughout GI: COMMON NORMALS: Normal to inspection, nondistended, normoactive bowel sounds present, Soft to palpation and no masses PALPATION: Yes Soft to palpation and Yes Tenderness to palpation present (GI) Details: other (Epigastric region) : COMMON NORMALS: Yes no CVA tenderness BLADDER/KIDNEY EXAM: Yes no CVA tenderness Back/Pelvis: COMMON NORMALS: no CVA tenderness Extremity: COMMON NORMALS: normal to inspection and no pedal edema Neuro: COMMON NORMALS: patient oriented x3 SENSORIUM/ORIENTATION: Yes alert GAIT: Yes Normal gait present Skin: GENERAL SKIN EXAM: dry skin Course Reevaluation(s): Reevaluation #1: After patient received IV pain meds, 1 L fluids, Pepcid and Zofran her symptoms improved greatly. Her vomiting was controlled and she was able to keep p.o. fluids down. Time: 11:00 Vital Signs: Vital signs: Vital Signs Temperature 97.4 F L 08/21/21 08:51 Pulse Rate 62 08/21/21 12:04 Respiratory Rate 16 08/21/21 12:04 Blood Pressure 115/79 08/21/21 12:04 Pulse Oximetry 98 08/21/21 12:04 MDM - Abdominal Pain Medical Decision Making Patient is a 41-year-old female comes to the ED with epigastric abdominal pain nausea and vomiting. White blood cell count 11.5, the rest of CBC, CMP and lipase were unremarkable. H. pylori negative. Lactic normal at 1.2. hCG negative. CT of abdomen pelvis showed no acute findings. Ultrasound gallbladder showed no acute findings.After patient received IV pain meds, 1 L fluids, Pepcid and Zofran her symptoms improved greatly. Her vomiting was controlled and she was able to keep p.o. fluids down. Patient was diagnosed with epigastric abdominal pain, nausea vomiting likely from gastritis. She was discharged home with a prescription for pantoprazole, Zofran and pain med. Return to ED precautions given. Patient was told to follow-up with her PCP in the next week for reevaluation. Patient understood and agreed with plan. Lab Data I reviewed the patient's lab results. : 08/21/21 09:10 08/21/21 09:10 Labs/Radiology: Radiology Impressions Abdomen/Pelvis CT 08/21/21 09:06 IMPRESSION: 1. Normal appendix. 2. Contracted gallbladder without adjacent inflammatory changes. Probably due to nonfasting state. 3. No renal obstruction. 4. Very mild periportal edema. This can be seen with excessive IV fluid hydration and hepatitis. 5. No free fluid or ascites. Gallbladder Ultrasound 08/21/21 11:08 IMPRESSION: 1. Normal gallbladder. 2. Minimally prominent portal triads throughout the liver. Although nonspecific this finding can be seen with hepatitis. 3. Normal common bile duct. Laboratory Results WBC 11.5 10^3/uL (4.0-10.0) H 08/21/21 09:10 RBC 4.38 10^6/uL (4.1-5.3) 08/21/21 09:10 Hgb 13.0 g/dL (11.5-15.3) 08/21/21 09:10 Hct 39.8 % (37.0-47.0) 08/21/21 09:10 MCV 90.9 fl (81-99) 08/21/21 09:10 MCH 29.7 pg (28.0-34.0) 08/21/21 09:10 MCHC 32.7 g/dL (30.0-36.0) 08/21/21 09:10 RDW 13.0 % (12.1-15.1) 08/21/21 09:10 Plt Count 366 10^3/cmm (130-400) 08/21/21 09:10 MPV 9.6 fL (7.4-10.4) 08/21/21 09:10 Neut % (Auto) 82.3 % 08/21/21 09:10 Lymph % (Auto) 12.7 % 08/21/21 09:10 [place] % (Auto) 3.5 % 08/21/21 09:10 Eos % (Auto) 0.8 % 08/21/21 09:10 Baso % (Auto) 0.4 % 08/21/21 09:10 Neut # (Auto) 9.43 10^3/uL (1.8-7.7) H 08/21/21 09:10 Lymph # (Auto) 1.5 10^3/uL (0.8-4.8) 08/21/21 09:10 [place] # (Auto) 0.4 10^3/uL (0.2-0.9) 08/21/21 09:10 Eos # (Auto) 0.1 10^3/uL (0.0-0.8) 08/21/21 09:10 Baso # (Auto) 0.1 10^3/uL (0.0-0.1) 08/21/21 09:10 Nucleated RBC % (auto) 0 % 08/21/21 09:10 Nucleated RBCs # 0.0 /100WBC 08/21/21 09:10 Sodium 138 mmol/L (136-145) 08/21/21 09:10 Potassium 3.8 mmol/L (3.5-5.1) 08/21/21 09:10 Chloride 100 mmol/L (98-107) 08/21/21 09:10 Carbon Dioxide 25 mmol/L (22-29) 08/21/21 09:10 Anion Gap 16.8 (5-19) 08/21/21 09:10 BUN 19 mg/dL (6-20) 08/21/21 09:10 Creatinine 0.5 mg/dL (0.5-0.9) 08/21/21 09:10 GFR Calculation 137.4 mL/min (90-130) H 08/21/21 09:10 Glucose 118 mg/dL (65-115) H 08/21/21 09:10 Calculated Osmolality 289 mOsm/kg (285-295) 08/21/21 09:10 Lactic Acid 1.2 mmol/L (0.5-2.2) 08/21/21 09:10 Calcium 9.5 mg/dL (8.5-10.5) 08/21/21 09:10 Total Bilirubin 0.4 mg/dL (0.15-1.2) 08/21/21 09:10 AST 22 U/L (0-32) 08/21/21 09:10 ALT 19 U/L (0-33) 08/21/21 09:10 Alkaline Phosphatase 93 IU/L (35-105) 08/21/21 09:10 Total Protein 7.1 g/dL (6.6-8.7) 08/21/21 09:10 Albumin 5.0 g/dL (3.5-5.2) 08/21/21 09:10 Globulin 2.1 g/dL (1.3-4.6) 08/21/21 09:10 Lipase 23 U/L (13-60) 08/21/21 09:10 HCG, Qual Negative (Negative) 08/21/21 09:10 H. pylori IgG Antibody Negative (Negative) 08/21/21 09:10 Discharge Plan Discharge Patient Disposition: Home Clinical Impression: Abdominal pain Qualifiers: Abdominal location: epigastric Qualified Code(s): R10.13 - Epigastric pain Nausea and vomiting Qualifiers: Vomiting type: unspecified Qualified Code(s): R11.2 - Nausea with vomiting, unspecified Condition: Stable Prescriptions: New ondansetron 4 mg tablet,disintegrating 4 mg PO Q8H PRN (Reason: nausea and vomiting) Qty: 20 0RF Protonix 40 mg tablet,delayed release (DR/EC) 40 mg PO DAILY 28 Days Qty: 30 0RF Discharge Orders: Discharge ED (Routine); Ordered 08/21/21 Ordered By: Juan Thomas Referrals: Julián Yañez MD [Primary Care Provider] - Discharge Diet: Advance as tolerated, Regular and Clear Liquid Discharge Activity: Increase activity as tolerated Patient Instructions: Abdominal Pain (ED), Opioid Safety Activity Restrictions/Additional Instructions: Follow-up with medical provider as directed in the next 5 to 7 days reevaluation. For the next 24 hours have a clear liquid diet and slowly advance diet as tolerated. Take medications as prescribed. Return to the ER or your medical provider if condition worsens. Please read and understand discharge instructions. Thank you for choosing [facility] for your healthcare needs today. Please realize this is an emergency room and that we are providing you with a medical screening exam and this may not be complete and all inclusive of all the testing and or work up that you may need to determine your ailment or severity of your illness. It is very important that you follow up as instructed or that you return to the Emergency Department should you have concerns or if your condition changes or worsens in any way. Coding Level of Care Code ED Interior Block Wirer for Yung Melendez Exam Comprehensive
[2021-08-21 09:24] VITALS: BP 117/90; PULSE 67; RESP 16; O2SAT 92
[2021-08-21 09:28] LABS: Basophils # 0.1 10^3/uL (0.0-0.1); Basophils % 0.4 %; Eosinophils # 0.1 10^3/uL (0.0-0.8); Eosinophils % 0.8 %; Hematocrit 39.8 % (37.0-47.0); Lymphocytes # 1.5 10^3/uL (0.8-4.8); Lymphocytes % 12.7 %; Mean Corpuscular HGB Conc 32.7 g/dL (30.0-36.0); Mean Corpuscular Hemoglobin 29.7 pg (28.0-34.0); Mean Corpuscular Volume 90.9 fl (81-99); Mean Platelet Volume 9.6 fL (7.4-10.4); Monocytes # 0.4 10^3/uL (0.2-0.9); Monocytes % 3.5 %; Neutrophils # 9.43 10^3/uL (1.8-7.7); Neutrophils % 82.3 %; Nucleated Red Blood Cells % 0 %; Platelet Count 366 10^3/cmm (130-400); Red Blood Count 4.38 10^6/uL (4.1-5.3); White Blood Count 11.5 10^3/uL (4.0-10.0)
[2021-08-21] MEDS: sodium chloride 0.9% 1,000 ML 999 ML IV (09:29)
[2021-08-21 09:30] VITALS: BP 117/90; PULSE 58; RESP 16; RESP 18; O2SAT 95
[2021-08-21] MEDS: ondansetron 2 mg/ML SDV 2 mL 4 MG IVP (09:30)
[2021-08-21] MEDS: morphine 4 mg/mL SDV 1 mL IVP (09:30)
[2021-08-21 09:57] LABS: HCG, Serum Qual Negative (Negative)
[2021-08-21 09:58] LABS: Alanine Aminotransferase 19 U/L (0-33); Alkaline Phosphatase 93 IU/L (35-105); Anion Gap 16.8 (5-19); Aspartate Amino Transferase 22 U/L (0-32); Blood Urea Nitrogen 19 mg/dL (6-20); Calcium 9.5 mg/dL (8.5-10.5); Carbon Dioxide 25 mmol/L (22-29); Chloride 100 mmol/L (98-107); Globulin 2.1 g/dL (1.3-4.6); Glomerular Filtration Rate 137.4 mL/min (90-130); Glucose 118 mg/dL (65-115); Lipase 23 U/L (13-60); Osmolality Calculated 289 mOsm/kg (285-295); Potassium 3.8 mmol/L (3.5-5.1); Sodium 138 mmol/L (136-145); Total Bilirubin 0.4 mg/dL (0.15-1.2); Total Protein 7.1 g/dL (6.6-8.7)
[2021-08-21 09:59] LABS: Lactic Sepsis W/Reflex 1.2 mmol/L (0.5-2.2)
[2021-08-21] MEDS: iohexol 300 mg/mL 100 mL Btl IV (10:27)
[2021-08-21] MEDS: famotidine 20 mg/2 mL INJ 40 MG IVP (10:34)
--- NOTE | 2021-08-21 11:08 | US_ITS ---
WS: [id number] RIGHT UPPER QUADRANT ULTRASOUND HISTORY: n/v epigastric/RUQ pain COMPARISON: None available. Liver: 13.9 cm in length. Normal size liver. Mildly prominent echogenic portal triads. This can be se en with thin patient. This can also be seen occasionally with acute hepatitis. There is no ascites. Portal Vein: Normal hepatopetal flow with monophasic waveform. Gallbladder: Normally distended gallbladder with no stones or wall thickening. CBD: 0.2 cm Pancreas: Normal size and echogenicity. Right kidney: 10.7 cm in length. Normal size and echogenicity. No hydronephrosis or mass. Aorta and IVC: Unremarkable abdominal aorta and IVC. No ascites. US/US gall bladder [id number] IMPRESSION: 1. Normal gallbladder. 2. Minimally prominent portal triads throughout the liver. Although nonspecifi c this finding can be seen with hepatitis. 3. Normal common bile duct.
[2021-08-21 11:19] LABS: H. Pylori IgG Antibody Negative (Negative)
[2021-08-21 11:30] VITALS: BP 121/70; PULSE 61; RESP 18; O2SAT 99
[2021-08-21 12:04] VITALS: BP 115/79; PULSE 62; RESP 16; O2SAT 98
== END 2021-08-21 12:05 | disposition home or self-care (01) ==
PROVIDERS: Emergency Provider Physician Assistant; PCP Family Medicine
DX: R10.13 Epigastric pain (principal); R11.2 Nausea with vomiting, unspecified
CPT/HCPCS: 74177; 76705; 80053; 83605; 83690; 84703; 85025; 86677; 87040; 96361; 96374; 96375; 99284; J2270; J2405; J3490; J7030; Q9967

== ENCOUNTER 2021-09-05 12:27 | Emergency (ER) | payer BC, MEDICAID, SELFPAY ==
[2021-09-05 12:40] VITALS: BP 124/87; PULSE 112; RESP 18; TEMP 36.8; O2SAT 97; BMI 24.5
--- NOTE | 2021-09-05 12:49 | ED_ITS ---
HPI - Headache General: Chief Complaint: Headache Stated Complaint: Headache and menstral issue Time Seen by Provider: 09/05/21 12:45 History of Present Illness: Patient said she had a headache this got worse over the last couple days hurts more in the left side. Has had migraines in the past does not take treatment for it. Says light and sound are bothering her. Does feel nauseated. Patient also says she might of left a tampon up inside her self and she is not sure and she did not see the string. Said it did not feel normal down there but she denies vaginal discharge. Associated symptoms: Reports nausea; Deny chest pain, fever(s), rash or vomiting Review of Systems Const: Denies: fever(s), chills or body aches Eyes: Reports: photophobia; Denies: eye discomfort ENMT: Reports: other (Phonophobia); Denies: throat pain Card: Denies: chest pain Resp: Denies: dyspnea GI: Reports: nausea; Denies: abdominal pain or vomiting : Reports: other (Might still have a tampon inside vagina) Skin/Breast: Denies: rash Neuro: Reports: headache(s) Psych: Denies: depression or suicidal ideation PFSH ED PFSH: Medical History No pertinent family history No pertinent past medical history Social History Smoking and tobacco status: current every day smoker Female Reproductive History: Date of last menstrual period: 08/30/21 Physical Exam Const: COMMON NORMALS: no acute distress, patient oriented x3 and alert HENMT: COMMON NORMALS: normocephalic and external ears normal HEAD & SCALP: normocephalic EXTERNAL EAR: Yes external ears normal Eye: COMMON NORMALS: EOMs intact bilaterally Neck/C-Spine: COMMON NORMALS: no JVD Resp: COMMON NORMALS: normal respiratory effort and No use of accessory muscles Cardio: COMMON NORMALS: no JVD GI: INSPECTION: Yes normal to inspection : SPECULUM EXAM - VAGINA: No foreign body, No tenderness, No Vaginal discharge present and Yes other (Is currently on her menstrual cycle) OB/EXTERNAL & SPECULUM: No no foreign bodies Extremity: COMMON NORMALS: normal to inspection and full ROM Neuro: COMMON NORMALS: patient oriented x3 SENSORIUM/ORIENTATION: Yes alert Psych: COMMON NORMALS: mental status grossly normal Skin: COMMON NORMALS: no rashes or lesions noted GENERAL SKIN EXAM: no rashes or lesions noted Course Vital Signs: Vital signs: Vital Signs Temperature 98.2 F 09/05/21 12:40 Pulse Rate 112 H 09/05/21 12:40 Respiratory Rate 18 09/05/21 12:40 Blood Pressure 124/87 09/05/21 12:40 Pulse Oximetry 97 09/05/21 12:40 MDM - Headache Medical Decision Making Patient has migrainous type headache which injections worked well and her headache feels much better. Also did a pelvic on her to check for tampon inside her vagina. Patient currently on her menstrual cycle there was no tampon that I could tell on her pelvic exam. Discharge Plan Discharge Patient Disposition: Home Clinical Impression: Migraine Condition: Stable Prescriptions: No Action ondansetron 4 mg tablet,disintegrating 4 mg PO Q8H PRN (Reason: nausea and vomiting) Qty: 20 0RF Protonix 40 mg tablet,delayed release (DR/EC) 40 mg PO DAILY 28 Days Qty: 30 0RF Discharge Orders: Discharge ED (Routine); Ordered 09/05/21 Ordered By: Haider Ricketts Referrals: Julián Yañez MD [Primary Care Provider] - Discharge Diet: Usual diet Discharge Activity: Increase activity as tolerated Patient Instructions: Headache - Migraine (Adult) Activity Restrictions/Additional Instructions: Follow-up your primary care provider as needed. Return here for worsening symptoms. Coding Level of Care Code ED Case Management Director for Chg Fwd Exam Comprehensive
[2021-09-05] MEDS: ketorolac 60 mg/2 mL INJ IM (13:10)
[2021-09-05] MEDS: promethazine 25 mg/mL SDV 1 mL IM (13:10)
== END 2021-09-05 13:57 | disposition home or self-care (01) ==
PROVIDERS: Emergency Provider Nurse Practitioner Family; PCP Family Medicine
DX: G43.809 Other migraine, not intractable, without status migrainosus (principal); F17.200 Nicotine dependence, unspecified, uncomplicated
CPT/HCPCS: 96372; 99283; E0352; J1885; J2550

== ENCOUNTER 2021-10-14 03:42 | Emergency (ER) | payer BC, MEDICAID, SELFPAY ==
[2021-10-14 03:56] VITALS: BMI 24.5
[2021-10-14 04:00] VITALS: BP 106/68; PULSE 85; RESP 16; TEMP 36.5; O2SAT 99
--- NOTE | 2021-10-14 07:15 | W.ED.BACK ---
HPI - Back Pain/Injury General: Chief Complaint: Back Pain/Injury Stated Complaint: back pain going down legs Time Seen by Provider: 10/14/21 07:04 Source: patient and family () Mode of arrival: ambulatory Limitations: no limitations History of Present Illness: Patient is a 41-year-old female who presents to ED today along with her for evaluation of back pain. Patient has been states she has suffered from chronic back pains for at least over a year now. They have followed up with her PCP Dr. Yañez in regards to this. states patient will normally take Aleve for her discomfort. Patient states she will intermittently get flares of her back pain. She has not had any recent injury or trauma. seems to think that back pain is worse in the mornings after lying flat all night. Patient states her pain seems to radiate down into her buttocks and down the posterior aspect of her legs. She does not describe any numbness, tingling, or loss of sensation. No saddle anesthesia. She does not complain of any bowel/bladder incontinence/retention. Patient is ambulatory here. She has been seen in our facility for back pain previously. MD elicited complaint: back pain Pertinent past history: prior back pain Timing: constant Severity: severe Pain scale (0-10): 9 Similar Symptoms Previously: Yes Location: lumbar spine and thoracic spine Radiation: buttocks, left upper leg and right upper leg Exacerbating factors: movement, walking and lifting Relieving factors: none Associated symptoms: Deny abdominal pain, chills, dysuria, fatigue, fever(s) or hematuria Treatments prior to arrival: NSAIDS Work related injury: No Review of Systems Const: Denies: fever(s), chills, body aches, fatigue or malaise Card: Denies: chest pain Resp: Denies: dyspnea GI: Denies: abdominal pain : Denies: flank pain, dysuria or hematuria Musc: Reports: back pain; Denies: neck pain, extremity pain, extremity swelling, joint pain or joint swelling Skin/Breast: Denies: rash Neuro: Denies: headache(s), numbness in extremities, weakness in extremities, sensory changes or dizziness PFSH ED PFSH: Medical History No pertinent family history No pertinent past medical history Social History Smoking and tobacco status: current every day smoker Female Reproductive History: Date of last menstrual period: 10/07/21 Physical Exam Const: COMMON NORMALS: no acute distress, average body habitus, patient oriented x3, no limitations, alert and well nourished ORIENTATION/CONSCIOUSNESS: Yes oriented to person, Yes oriented to place and Yes oriented to time Neck/C-Spine: COMMON NORMALS: full ROM GENERAL: Yes normal visual inspection CERVICAL SPINE: No pain with cervical ROM, No Cervical spine tenderness, No step off deformity and No Paracervical muscle tenderness Resp: COMMON NORMALS: normal respiratory effort Cardio: COMMON NORMALS: regular rate and regular rhythm RATE: regular rate RHYTHM: regular rhythm GI: COMMON NORMALS: Normal to inspection, nondistended, normoactive bowel sounds present, Soft to palpation, non-tender, No hepatosplenomegaly present and no masses PALPATION: Yes Soft to palpation and Yes No hepatosplenomegaly present : COMMON NORMALS: Yes no CVA tenderness BLADDER/KIDNEY EXAM: Yes no CVA tenderness Back/Pelvis: COMMON NORMALS: no CVA tenderness THORACIC SPINE/UPPER BACK: Yes normal to inspection, Yes ROM limited, Yes pain with ROM, Yes thoracic spinal tenderness, No paraspinal muscle tenderness and No paraspinal muscle spasm LUMBAR SPINE/LOWER BACK: Yes normal to inspection, Yes ROM limited, Yes lumbar spinal tenderness, No paraspinal muscle tenderness and No paraspinal muscle spasm PELVIS: Yes buttocks normal SACRUM: no tenderness COCCYX: no tenderness BACK IMAGE (FEMALE): 1. TTP along midline Extremity: COMMON NORMALS: normal to inspection, full ROM, capillary refill normal, no joint enlargement, no clubbing, cyanosis or edema, no calf tenderness and no pedal edema GENERAL: Yes normal exam except as noted Neuro: MICHELL COMA SCALE: document GCS findings Michell coma scale eye opening: Spontaneous Michell coma scale verbal response: Orientated Michell coma scale motor response: Obey commands [place] coma scale total score: 15 COMMON NORMALS: patient oriented x3, moves all extremities, no focal motor deficits and no sensory deficits noted SENSORIUM/ORIENTATION: Yes alert, Yes oriented to person, Yes oriented to place and Yes oriented to time GAIT: Yes Normal gait present MOTOR EXAM: 5/5 motor strength present throughout Skin: COMMON NORMALS: no rashes or lesions noted GENERAL SKIN EXAM: no rashes or lesions noted Course Vital Signs: Vital signs: Vital Signs Temperature 97.7 F 10/14/21 04:00 Pulse Rate 85 10/14/21 04:00 Respiratory Rate 16 10/14/21 04:00 Blood Pressure 106/68 10/14/21 04:00 Pulse Oximetry 99 10/14/21 04:00 MDM - Back Pain/Injury Medical Decision Making Reexamination reveals patient resting comfortably in no acute distress. She will be recommended to follow-up with her primary care provider for further evaluation and treatment of her back pain. Return to ED precautions verbally given. Discharge Plan Discharge Patient Disposition: Home Clinical Impression: Chronic back pain Qualifiers: Back pain location: low back pain Back pain laterality: midline Sciatica presence: unspecified whether sciatica present Qualified Code(s): M54.50 - Low back pain, unspecified Condition: Stable Prescriptions: New methocarbamol 500 mg tablet 1,000 mg PO Q8H Qty: 30 0RF Medrol (Isac) 4 mg tablets,dose pack See Rx Instructions .ROUTE .COMPLEX Qty: 21 0RF Rx Instructions: orally per package directions No Action ondansetron 4 mg tablet,disintegrating 4 mg PO Q8H PRN (Reason: nausea and vomiting) Qty: 20 0RF Discharge Orders: Discharge ED (Routine); Ordered 10/14/21 Ordered By: Lilibeth Jaeger Referrals: Julián Yañez MD [Primary Care Provider] - Coding Level of Care Code ED Cabinet Abrasive Sandblaster for Chg Fwd Exam Comprehensive
[2021-10-14] MEDS: orphenadrine 30 mg/mL Inj 2 mL 60 MG IM (07:38)
[2021-10-14] MEDS: ketorolac 60 mg/2 mL INJ IM (07:38)
== END 2021-10-14 08:35 | disposition home or self-care (01) ==
PROVIDERS: Emergency Provider Physician Assistant; PCP Family Medicine
DX: M54.50 Low back pain, unspecified (principal)
CPT/HCPCS: 96372; 99283; J1885; J2360; J2930

== ENCOUNTER 2021-10-30 07:34 | Emergency (ER) | payer BC, MEDICAID, SELFPAY ==
[2021-10-30] VITALS (7 sets, daily range): BP systolic 101–136; BP diastolic 56–107; PULSE 85–103; RESP 14–29; TEMP 36.4; O2SAT 100; BMI 24.5
--- NOTE | 2021-10-30 07:36 | ECG_ITS ---
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 Measurements Intervals [place] Rate: 85 P: 85 [place]: 155 QRS: 77 QRSD: 77 T: 81 QT: 366 QTc: 435 Interpretive Statements SINUS RHYTHM Compared to ECG 09/07/2017 17:48:02 Sinus tachycardia no longer present Electronically Signed On 10-30-2021 22:30:18 CDT by Beltran Lawrence M.D. [email or web address]/[id number]
--- NOTE | 2021-10-30 07:36 | XR_ITS ---
WS: [id number] Exam: XR chest 1V portable [id number] Date/Time of Exam: 10/30/2021 7:38 AM Reason For Exam: cp Comparison 05/18/2017. Findings: The lungs are clear and fully expanded. Costophrenic angles are sharp. No infiltrates. Bronchovascula r relief appears normal. Cardiac silhouette is unremarkable. Bony elements are intact. XR/XR chest 1V portable [id number] IMPRESSION: Unremarkable chest radiograph.
--- NOTE | 2021-10-30 07:56 | ED_ITS ---
HPI - Chest Pain General: Chief Complaint: Chest Pain Stated Complaint: Chest Pain Time Seen by Provider: 10/30/21 07:36 History of Present Illness: Patient is a 41-year-old female comes to the ED with chest pain. Chest pain started yesterday afternoon while she was walking around [facility]. She describes the chest pain as a sharp and stabbing pain in the left side of the chest that radiates to the middle of the chest. She rates her pain currently a 10 out of 10. Pain worsens with exertion. Denies any improving factors. Endorses having history of acid reflux and anxiety. This chest pain does not feel like any of her past acid reflux or anxiety symptoms. Denies any fever, chills, shortness of breath, abdominal pain, nausea/vomiting, bladder or bowel symptoms. Associated symptoms: Deny abdominal pain, dyspnea, fever(s), nausea, pal pitations or vomiting Review of Systems Const: Denies: fever(s), chills or fatigue Eyes: Denies: change in vision or eye discomfort ENMT: Denies: throat pain, odynophagia, nasal discharge or nasal congestion Card: Reports: chest pain; Denies: palpitations, edema, swelling of feet/ankles, dyspnea on exertion or orthopnea Resp: Denies: dyspnea, productive cough or non-productive cough GI: Denies: abdominal pain, nausea, vomiting, diarrhea, constipation or hematochezia : Denies: flank pain, dysuria or hematuria Musc: Denies: neck pain, back pain or extremity swelling Skin/Breast: Denies: rash or new lesions Neuro: Denies: headache(s), numbness in extremities or weakness in extremities [facility] ED PFSH: Medical History No pertinent family history No pertinent past medical history Social History Smoking and tobacco status: current every day smoker Female Reproductive History: Date of last menstrual period: 10/07/21 Physical Exam Const: COMMON NORMALS: patient oriented x3 HENMT: COMMON NORMALS: normocephalic HEAD & SCALP: normocephalic MOUTH: Normal oral and palatal mucosa present THROAT: posterior oropharynx normal and uvula midline Neck/C-Spine: COMMON NORMALS: supple GENERAL: Yes normal visual inspection Resp: COMMON NORMALS: normal respiratory effort, No retractions, No use of accessory muscles and clear to auscultation bilaterally AUSCULTATION: clear to auscultation bilaterally Cardio: COMMON NORMALS: regular rate, regular rhythm, S1 normal heart sound present, S2 normal heart sound present, No gallops present (Cardio), No clicks present (Cardio), No murmurs present (Cardio) and Peripheral pulses 2+ throughout RATE: regular rate RHYTHM: regular rhythm HEART SOUNDS: S1 normal heart sound present and S2 normal heart sound present PERIPHERAL PULSES: Peripheral pulses 2+ throughout GI: COMMON NORMALS: Normal to inspection, nondistended, normoactive bowel sounds present, Soft to palpation, non-tender and no masses PALPATION: Yes Soft to palpation : COMMON NORMALS: Yes no CVA tenderness BLADDER/KIDNEY EXAM: Yes no CVA tenderness Back/Pelvis: COMMON NORMALS: no CVA tenderness Extremity: COMMON NORMALS: normal to inspection Neuro: COMMON NORMALS: patient oriented x3 and moves all extremities Skin: GENERAL SKIN EXAM: dry skin Course Vital Signs: Vital signs: Vital Signs Temperature 97.6 F 10/30/21 07:38 Pulse Rate 89 10/30/21 11:40 Respiratory Rate 15 10/30/21 11:40 Blood Pressure 117/76 10/30/21 11:40 Pulse Oximetry 100 10/30/21 11:40 MDM - Chest Pain Medical Decision Making Patient is a 41-year-old female comes to the ED with chest pain. Chest pain started yesterday when she was walking around [facility]. Endorses having a history of acid reflux and anxiety. Vitals are stable. Exam is benign. Hemoglobin of 10 but patient has known documented anemia and this appears chronic for her. Rest of her labs were unremarkable. Troponin negative. EKG showed no acute cardiac findings. Chest x-ray showed no acute findings. Patient was given some Ativan here in the ED and her chest pain improved. She is diagnosed with noncardiac chest pain likely due to anxiety. She was stable for discharge home told to follow-up with her PCP in the next week for reevaluation. Return to ED precautions given. Patient understood agree with plan. Lab Data I reviewed the patient's lab results. : 10/30/21 08:12 10/30/21 08:12 Radiology Impressions Chest X-Ray 10/30/21 07:36 IMPRESSION: Unremarkable chest radiograph. Laboratory Results WBC 5.1 10^3/uL (4.0-10.0) 10/30/21 08:12 RBC 3.82 10^6/uL (4.1-5.3) L 10/30/21 08:12 Hgb 10.0 g/dL (11.5-15.3) L 10/30/21 08:12 Hct 31.0 % (37.0-47.0) L 10/30/21 08:12 MCV 81.2 fl (81-99) 10/30/21 08:12 MCH 26.2 pg (28.0-34.0) L 10/30/21 08:12 MCHC 32.3 g/dL (30.0-36.0) 10/30/21 08:12 RDW 14.6 % (12.1-15.1) 10/30/21 08:12 Plt Count 414 10^3/cmm (130-400) H 10/30/21 08:12 MPV 9.6 fL (7.4-10.4) 10/30/21 08:12 Neut % (Auto) 56.6 % 10/30/21 08:12 Lymph % (Auto) 32.9 % 10/30/21 08:12 [place] % (Auto) 5.6 % 10/30/21 08:12 Eos % (Auto) 3.7 % 10/30/21 08:12 Baso % (Auto) 0.8 % 10/30/21 08:12 Neut # (Auto) 2.91 10^3/uL (1.8-7.7) 10/30/21 08:12 Lymph # (Auto) 1.7 10^3/uL (0.8-4.8) 10/30/21 08:12 [place] # (Auto) 0.3 10^3/uL (0.2-0.9) 10/30/21 08:12 Eos # (Auto) 0.2 10^3/uL (0.0-0.8) 10/30/21 08:12 Baso # (Auto) 0.0 10^3/uL (0.0-0.1) 10/30/21 08:12 Nucleated RBC % (auto) 0 % 10/30/21 08:12 Nucleated RBCs # 0.0 /100WBC 10/30/21 08:12 Sodium 140 mmol/L (136-145) 10/30/21 08:12 Potassium 3.5 mmol/L (3.5-5.1) 10/30/21 08:12 Chloride 103 mmol/L (98-107) 10/30/21 08:12 Carbon Dioxide 26 mmol/L (22-29) 10/30/21 08:12 Anion Gap 14.5 (5-19) 10/30/21 08:12 BUN 13 mg/dL (6-20) 10/30/21 08:12 Creatinine 0.6 mg/dL (0.5-0.9) 10/30/21 08:12 GFR Calculation 111.3 mL/min (90-130) 10/30/21 08:12 Glucose 104 mg/dL (65-115) 10/30/21 08:12 Calculated Osmolality 290 mOsm/kg (285-295) 10/30/21 08:12 Calcium 9.4 mg/dL (8.5-10.5) 10/30/21 08:12 Total Bilirubin 0.2 mg/dL (0.15-1.2) 10/30/21 08:12 AST 15 U/L (0-32) 10/30/21 08:12 ALT 15 U/L (0-33) 10/30/21 08:12 Alkaline Phosphatase 84 IU/L (35-105) 10/30/21 08:12 Troponin T Baseline 6 ng/L (0-10) 10/30/21 08:12 Troponin T 120 Minute 6.00 ng/L (0-10) 10/30/21 10:26 Delta Troponin T 0 ABS# (0-10) 10/30/21 10:26 Total Protein 6.7 g/dL (6.6-8.7) 10/30/21 08:12 Albumin 4.5 g/dL (3.5-5.2) 10/30/21 08:12 Globulin 2.2 g/dL (1.3-4.6) 10/30/21 08:12 HCG, Qual Negative (Negative) 10/30/21 08:12 EKG Data EKG 1: Computer generated interpretation: [address] [address] Electrocardiograph Report Signed Patient: Sheeba Cobian Unit #: [id number] : 1980 Age/Sex: 41 / F ADM Date: 10/30/21 Loc: ER Room/Bed: Attending Dr: Ordering Provider/Ordering MD: Juan Thomas Date of Service: 10/30/21 Procedure(s): ECG 12 lead EKG Accession Number(s): [id number] Report Number: [id number] ? [facility] ? Test Date:? ? 2021-10-30 Pat Name: ? ? Sheeba Cobian? Department: ? Patient ID: ? [id number] ? Room: ? Gender: ? ? ? Female ? 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 Requested By: Juan Thomas Order Number: [id number]? Reading : ? Beltran Lawrence M.D. ? Measurements Intervals? [place]? Rate: ? 86 ? P:? 79 [place]: ? 152? QRS:? 66 QRSD: ? 84 ? T:? 72 QT: ? 375? QTc:? 450? Interpretive Statements SINUS RHYTHM NONSPECIFIC T-WAVE ABNORMALITY Compared to ECG 10/30/2021 07:59:54 T-wave abnormality now present Electronically Signed On 10-30-2021 22:32:28 CDT by Beltran Lawrence M.D. [id number] Dictated By: Beltran Lawrence MD Signed By: Beltran Lawrence MD Signed Date/Time 10/30/21 DD/ 1 EKG 2: Computer generated interpretation: [address] [id number] Electrocardiograph Report Signed Patient: Sheeba Cobian Unit #: [id number] : 1980 Age/Sex: 41 / F ADM Date: 10/30/21 Loc: ER Room/Bed: Attending Dr: Ordering Provider/Ordering MD: Juan Thomas Date of Service: 10/30/21 Procedure(s): ECG 12 lead EKG Accession Number(s): [id number] Report Number: [id number] ? [facility] ? Test Date:? ? 2021-10-30 Pat Name: ? ? Sheeba Cobian? Department: ? Patient ID: ? [id number] ? Room: ? Gender: ? ? ? Female ? 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 Requested By: Juan Thomas Order Number: [id number]? Reading MD: ? Beltran Lawrence M.D. ? Measurements Intervals? [place]? Rate: ? 85 ? P:? 85 [place]: ? 155? QRS:? 77 QRSD: ? 77 ? T:? 81 QT: ? 366? QTc:? 435? Interpretive Statements SINUS RHYTHM Compared to ECG 09/07/2017 17:48:02 Sinus tachycardia no longer present Electronically Signed On 10-30-2021 22:30:18 CDT by Beltran Lawrence M.D. [id number] Dictated By: Beltran Lawrence MD Signed By: Beltran Lawrence MD Signed Date/Time: 10/30/212229 DD/ 0759 Discharge Plan Discharge Patient Disposition: Home Clinical Impression: Non-cardiac chest pain Condition: Stable Prescriptions: New Celebrex 100 mg capsule 100 mg PO BID PRN (Reason: pain) Qty: 20 0RF No Action ondansetron 4 mg tablet,disintegrating 4 mg PO Q8H PRN (Reason: nausea and vomiting) Qty: 20 0RF methocarbamol 500 mg tablet 1,000 mg PO Q8H Qty: 30 0RF Medrol (Isac) 4 mg tablets,dose pack See Rx Instructions .ROUTE .COMPLEX Qty: 21 0RF Rx Instructions: orally per package directions Discharge Orders: Discharge ED (Routine); Ordered 10/30/21 Ordered By: Juan Thomas Referrals: Julián Yañez MD [Primary Care Provider] - Discharge Diet: Regular Discharge Activity: Increase activity as tolerated Patient Instructions: Noncardiac Chest Pain (ED) Activity Restrictions/Additional Instructions: Follow-up with medical provider as directed in the next 5 to 7 days for reevaluation. Take medications as prescribed. Return to the ER or your medical provider if condition worsens. Please read and understand discharge instructions. Thank you for choosing [facility] for your healthcare needs today. Please realize this is an emergency room and that we are providing you with a medical screening exam and this may not be complete and all inclusive of all the testing and or work up that you may need to determine your ailment or severity of your illness. It is very important that you follow up as instructed or that you return to the Emergency Department should you have concerns or if your condition changes or worsens in any way. Coding Level of Care Code ED Soils Analyst for Yung Melendez Exam Comprehensive
--- NOTE | 2021-10-30 08:05 | PC.NURSE ---
EKG done at 0800 and shown to RAFFI GODWIN
[2021-10-30] MEDS: aspirin 81 mg Chew Tablet 324 MG PO (08:06)
[2021-10-30] MEDS: morphine 4 mg/mL SDV 1 mL IVP (08:06)
[2021-10-30] MEDS: ondansetron 2 mg/ML SDV 2 mL 4 MG IVP (08:06)
[2021-10-30 08:18] LABS: Basophils % 0.8 %; Eosinophils # 0.2 10^3/uL (0.0-0.8); Eosinophils % 3.7 %; Lymphocytes # 1.7 10^3/uL (0.8-4.8); Lymphocytes % 32.9 %; Mean Corpuscular HGB Conc 32.3 g/dL (30.0-36.0); Mean Corpuscular Hemoglobin 26.2 pg (28.0-34.0); Mean Corpuscular Volume 81.2 fl (81-99); Mean Platelet Volume 9.6 fL (7.4-10.4); Monocytes # 0.3 10^3/uL (0.2-0.9); Monocytes % 5.6 %; Neutrophils # 2.91 10^3/uL (1.8-7.7); Neutrophils % 56.6 %; Nucleated Red Blood Cells % 0 %; Platelet Count 414 10^3/cmm (130-400); Red Blood Count 3.82 10^6/uL (4.1-5.3); Red Cell Distribution Width 14.6 % (12.1-15.1); White Blood Count 5.1 10^3/uL (4.0-10.0)
[2021-10-30 08:42] LABS: HCG, Serum Qual Negative (Negative)
[2021-10-30 08:51] LABS: Alanine Aminotransferase 15 U/L (0-33); Albumin Level 4.5 g/dL (3.5-5.2); Alkaline Phosphatase 84 IU/L (35-105); Anion Gap 14.5 (5-19); Aspartate Amino Transferase 15 U/L (0-32); Blood Urea Nitrogen 13 mg/dL (6-20); Calcium 9.4 mg/dL (8.5-10.5); Carbon Dioxide 26 mmol/L (22-29); Chloride 103 mmol/L (98-107); Globulin 2.2 g/dL (1.3-4.6); Glomerular Filtration Rate 111.3 mL/min (90-130); Glucose 104 mg/dL (65-115); Osmolality Calculated 290 mOsm/kg (285-295); Potassium 3.5 mmol/L (3.5-5.1); Sodium 140 mmol/L (136-145); Total Bilirubin 0.2 mg/dL (0.15-1.2); Total Protein 6.7 g/dL (6.6-8.7)
[2021-10-30 08:52] LABS: Troponin(5th) Baseline 6 ng/L (0-10)
[2021-10-30] MEDS: morphine 4 mg/mL SDV 1 mL 2 MG IVP (09:08)
--- NOTE | 2021-10-30 09:26 | PC.NURSE ---
EKG done at 0920 and shown to RAFFI GODWIN
--- NOTE | 2021-10-30 09:36 | ECG_ITS ---
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 Measurements Intervals [place] Rate: 86 P: 79 [place]: 152 QRS: 66 QRSD: 84 T: 72 QT: 375 QTc: 450 Interpretive Statements SINUS RHYTHM NONSPECIFIC T-WAVE ABNORMALITY Compared to ECG 10/30/2021 07:59:54 T-wave abnormality now present Electronically Signed On 10-30-2021 22:32:28 CDT by Beltran Lawrence M.D. [id number]
[2021-10-30] MEDS: lidocaine 2% viscous 15 ML, aluminum-mag hydrox-simethicon 30 ML, sucralfate oral liq 1 GM PO (10:05)
[2021-10-30] MEDS: LORazepam 2 mg/mL INJ 1 mL IVP (10:06)
--- NOTE | 2021-10-30 10:55 | PC.NURSE ---
PT placed on continuous NIBP, SpO2, and CM
[2021-10-30 11:37] LABS: Troponin 5 2HR Delta 0 ABS# (0-10)
== END 2021-10-30 11:36 | disposition home or self-care (01) ==
PROVIDERS: Emergency Provider Physician Assistant; PCP Family Medicine
DX: R07.89 Other chest pain (principal); F17.210 Nicotine dependence, cigarettes, uncomplicated
CPT/HCPCS: 71045; 80053; 84484; 84703; 85025; 93005; 96374; 96375; 96376; 99285; J2060; J2270; J2405

== ENCOUNTER 2021-11-15 21:49 | Emergency (ER) | payer BC, MEDICAID, SELFPAY ==
[2021-11-15 21:54] VITALS: BP 115/73; PULSE 96; RESP 18; TEMP 36.6; O2SAT 98
--- NOTE | 2021-11-15 23:23 | ED_ITS ---
HPI - Wound/Laceration General: Chief Complaint: Wound/Laceration Stated Complaint: Rt Hand Cut Time Seen by Provider: 11/15/21 23:18 History of Present Illness: 41-year-old female comes in today with complaints of pain to the right hand from injury. Patient reports digging in the yard when she cut her right hand on a piece of glass. Patient needs a tetanus shot. Patient thinks she might need stitches. Review of Systems General: Reports: 10 or more systems reviewed and unremarkable except in HPI and below Resp: Denies: dyspnea GI: Denies: abdominal pain Skin/Breast: Reports: new lesions [facility] ED PFSH: Medical History No pertinent family history No pertinent past medical history Social History Smoking and tobacco status: current every day smoker Female Reproductive History: Date of last menstrual period: 10/07/21 Physical Exam Const: COMMON NORMALS: alert Neck/C-Spine: COMMON NORMALS: full ROM Resp: COMMON NORMALS: normal respiratory effort Cardio: COMMON NORMALS: regular rate and regular rhythm RATE: regular rate RHYTHM: regular rhythm Extremity: RIGHT UPPER EXTREMITY: Yes hand & digits (1 cm puncture wound to the palmar right hand.) Right hand and digits: Yes inspection, Yes palpation and Yes ROM exam Neuro: SENSORIUM/ORIENTATION: Yes alert Skin: TRAUMA: laceration Procedures Foreign Body Removal Site: right and hand Description of foreign body: other (Glass) Sedation/Analgesia: other (Lidocaine) Technique: removal with forceps and incision made to facilitate removal Confirmed by:: direct visualization Complications: none Post-procedure exam: awake, alert Course Vital Signs: Vital signs: Vital Signs Temperature 97.8 F 11/15/21 21:54 Pulse Rate 96 11/15/21 21:54 Respiratory Rate 18 11/15/21 21:54 Blood Pressure 115/73 11/15/21 21:54 Pulse Oximetry 98 11/15/21 21:54 MDM - Wound/Laceration Medical Decision Making 41-year-old female comes in today with injury to the right hand. On exam patient had a puncture wound to the right hand. Differential diagnosis includes but not limited to laceration, need for prophylaxis tetanus, foreign body. X- ray noted a foreign body in the soft tissue of the right hand. Under local anesthetic of lidocaine small incision was made to widen the injured area and a shard of glass was removed. No other foreign body was noted with probing of the wound. Patient tolerated well. Tetanus was updated. Patient be kept on Augmentin twice a day for 7 days. Wound was left open for drainage and secondary healing. Lab Data Radiology Impressions Hand X-Ray 11/15/21 23:36 IMPRESSION: 1. There are no acute osseous findings. 2. Foreign body seen in the thenar eminence as described above. Discharge Plan Discharge Patient Disposition: Home Clinical Impression: Puncture wound of hand, right Qualifiers: Encounter type: initial encounter Foreign body presence: with foreign body Qualified Code(s): S61.441A - Puncture wound with foreign body of right hand, initial encounter Condition: Stable Prescriptions: New amoxicillin-pot clavulanate 875-125 mg tablet 1 tab PO BID Qty: 14 0RF No Action ondansetron 4 mg tablet,disintegrating 4 mg PO Q8H PRN (Reason: nausea and vomiting) Qty: 20 0RF Celebrex 100 mg capsule 100 mg PO BID PRN (Reason: pain) Qty: 20 0RF methocarbamol 500 mg tablet 1,000 mg PO Q8H Qty: 30 0RF Medrol (Isac) 4 mg tablets,dose pack See Rx Instructions .ROUTE .COMPLEX Qty: 21 0RF Rx Instructions: orally per package directions Discharge Orders: Discharge ED (Routine); Ordered 11/16/21 Ordered By: Ascencion Bolton Referrals: Julián Yañez MD [Primary Care Provider] - Discharge Diet: Usual diet Discharge Activity: Increase activity as tolerated Patient Instructions: Puncture Wound (ED) Activity Restrictions/Additional Instructions: Clean hand gently with soap and water daily. Take antibiotic twice daily as directed for 7 days. Follow-up with primary care as needed. Return to ER for new concerns or worsening symptoms. Use acetaminophen and ibuprofen for pain. Coding Level of Care Code ED Sustainability Coach for Yung Melendez
--- NOTE | 2021-11-15 23:36 | XRR_ITS ---
PROCEDURE INFORMATION: Exam: XR Right Hand Exam date and time: 11/15/2021 11:50 PM Age: 41 years old Clinical indication: Injury or trauma; Fall; Puncture; Hand; Right; Additional info: Puncture wound TECHNIQUE: Imaging protocol: Radiologic exam of the Right hand. Views: 3 or more views. COMPARISON: No relevant prior studies available. FINDINGS: Bones/joints: Normal. Soft tissues: There is a 6.1 mm foreign body, its base measuring 1.5 mm in thickness tapering to a point within the right thenar eminence. XR/XR hand RT min 3V* [id number] IMPRESSION: 1. There are no acute osseous findings. 2. Foreign body seen in the thenar eminence as described above.
[2021-11-15] MEDS: tetanus-dipt-pertussis 0.5 mL SDV IM (23:37)
[2021-11-15] MEDS: amoxicillin-clav 875-125 mg Tablet 1 TAB PO (23:37)
[2021-11-15] MEDS: HYDROcodone-acetaminophen 5-325 mg Tablet 1 TAB PO (23:59)
[2021-11-16] MEDS: bacitracin ointment Pkt 1 EACH TOPICAL (00:51)
== END 2021-11-16 00:52 | disposition home or self-care (01) ==
PROVIDERS: Emergency Provider Nurse Practitioner Family; PCP Family Medicine
DX: S61.441A Puncture wound with foreign body of right hand, initial encounter (principal); W25.XXXA Contact with sharp glass, initial encounter; F17.210 Nicotine dependence, cigarettes, uncomplicated; Z23 Encounter for immunization
CPT/HCPCS: 10120; 73130; 90471; 90715; 99283

== ENCOUNTER 2021-11-25 18:31 | Emergency (ER) | payer BC, MEDICAID, SELFPAY ==
[2021-11-25 19:14] VITALS: BP 109/71; PULSE 99; RESP 16; TEMP 36.5; O2SAT 98; BMI 22.9
--- NOTE | 2021-11-25 19:23 | ED_ITS ---
HPI - Extremity Problem General: Chief complaint: Extremity Problem,Nontraumatic Stated complaint: Middle Back Pain, Rt Knee pain Time Seen by Provider: 11/25/21 19:19 History of Present Illness: 41-year-old female comes in today with complaints of right knee pain and middle back pain. Patient reports last night she was walking and her knee locked up on her causing her to fall. Patient has been ambulate without difficulty. Patient does have a history of back pain. 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 Review of Systems General: Reports: 10 or more systems reviewed and unremarkable except in HPI and below Musc: Reports: back pain and joint pain (Right knee) PFSH ED PFSH: Medical History No pertinent family history No pertinent past medical history Social History Smoking and tobacco status: current every day smoker Female Reproductive History: Date of last menstrual period: 10/07/21 Physical Exam Const: COMMON NORMALS: alert HENMT: COMMON NORMALS: normocephalic HEAD & SCALP: normocephalic Neck/C-Spine: CERVICAL SPINE: Yes cervical ROM normal Resp: COMMON NORMALS: normal respiratory effort Cardio: COMMON NORMALS: regular rate RATE: regular rate Back/Pelvis: THORACIC SPINE/UPPER BACK: No thoracic spinal tenderness LUMBAR SPINE/LOWER BACK: No lumbar spinal tenderness, Yes paraspinal muscle tenderness Lumbar paraspinal muscle tenderness: left, Yes straight leg raise negative bilaterally and Yes other soft tissue findings (Light bruising is noted to the left paraspinous area.) Neuro: SENSORIUM/ORIENTATION: Yes alert Skin: COMMON NORMALS: no rashes or lesions noted GENERAL SKIN EXAM: no rashes or lesions noted Course Vital Signs: Vital signs: Vital Signs Temperature 97.7 F 11/25/21 19:14 Pulse Rate 99 11/25/21 19:14 Respiratory Rate 16 11/25/21 19:14 Blood Pressure 109/71 11/25/21 19:14 Pulse Oximetry 98 11/25/21 19:14 MDM - Extremity (Nontraumatic) Medical Decision Making 41-year-old female comes in today for complaints of left low back pain and right knee pain. Patient has a history of back pain and a Fairbanks's cyst to the right knee. Patient reports last night her knee seems to lock up on her causing her to fall landing on her left side. On exam patient has some light bruising to the left paraspinous muscles. No tenderness is noted along the spinal processes. Patient moves knee with minimal difficulty and pain. Differential diagnosis includes but not limited to osteoarthritis to the knee, contusion to the back, lumbar strain. No signs of serious illness or injury is noted. Discussed patient her bruising most likely is causing her pain recommended gosia taminophen and NSAIDs for pain and discomfort. Patient was also given a prescription of Robaxin for further pain control. Reviewed recommendations for further follow-up with primary care. Patient and spouse both reported understanding. Discharge Plan Discharge Patient Disposition: Home Clinical Impression: Contusion of lower back Qualifiers: Encounter type: initial encounter Qualified Code(s): S30.0XXA - Contusion of lower back and pelvis, initial encounter Condition: Stable Prescriptions: New diclofenac sodium 75 mg tablet,delayed release (DR/EC) 75 mg PO BID Qty: 14 0RF Continued methocarbamol 500 mg tablet 1,000 mg PO Q8H Qty: 30 0RF Discontinued celecoxib [Celebrex] 100 mg capsule 100 mg PO BID PRN (Reason: pain) Qty: 20 0RF methylprednisolone [Medrol (Isac)] 4 mg tablets,dose pack See Rx Instructions .ROUTE .COMPLEX Qty: 21 0RF Rx Instructions: orally per package directions amoxicillin-pot clavulanate 875-125 mg tablet 1 tab PO BID Qty: 14 0RF No Action ondansetron 4 mg tablet,disintegrating 4 mg PO Q8H PRN (Reason: nausea and vomiting) Qty: 20 0RF Discharge Orders: Discharge ED (Routine); Ordered 11/25/21 Ordered By: Ascencion Bolton Referrals: Julián Yañez MD [Primary Care Provider] - Discharge Diet: Usual diet Discharge Activity: Increase activity as tolerated Patient Instructions: Back Pain (ED) Activity Restrictions/Additional Instructions: Activity as tolerated. Use ice or heat for further pain relief. Drink plenty of water. Take diclofenac and methocarbamol for pain and muscle laxation. Follow-up with primary care for repeat evaluation in 1 week. Return to ER for new concerns. Coding Level of Care Code ED Canine Enforcement Officer for Yung Melendez
[2021-11-25] MEDS: ketorolac 30 mg/mL INJ IM (20:16)
[2021-11-25] MEDS: orphenadrine 30 mg/mL Inj 2 mL 60 MG IM (20:16)
== END 2021-11-25 20:22 | disposition home or self-care (01) ==
PROVIDERS: Emergency Provider Nurse Practitioner Family; PCP Family Medicine
DX: S30.0XXA Contusion of lower back and pelvis, initial encounter (principal); F17.210 Nicotine dependence, cigarettes, uncomplicated; W18.30XA Fall on same level, unspecified, initial encounter
CPT/HCPCS: 96372; 99284; J1885; J2360

== ENCOUNTER 2021-11-29 16:11 | Emergency (ER) | payer BC, MEDICAID, SELFPAY ==
[2021-11-29 17:50] VITALS: BP 113/76; PULSE 97; RESP 14; TEMP 36.4; O2SAT 100; BMI 22.8
--- NOTE | 2021-11-29 18:25 | XRR_ITS ---
PROCEDURE INFORMATION: Exam: XR Right Hand Exam date and time: 11/29/2021 6:29 PM Age: 41 years old Clinical indication: Injury or trauma; Other: Foreign body; Wound; Right; Patient HX: Check for debris S/P removal of fish hook from tip of RT index finger. ; Additional info: Foerign body TECHNIQUE: Imaging protocol: Radiologic exam of the Right hand. Views: 1 or 2 views. COMPARISON: CR ( EX, ) 11/15/2021 11:50 PM FINDINGS: Bones/joints: Normal. Soft tissues: There is soft tissue swelling of the right 2nd digit. No soft tissue gas or radiopaque foreign body. XR/XR hand RT 2V [id number] IMPRESSION: No concerning radioopaque foreign bodies are identified.
--- NOTE | 2021-11-29 18:25 | ED_ITS ---
HPI - Extremity Problem General: Chief complaint: Extremity Problem,Nontraumatic Stated complaint: fishing hook in finger, right hand Time Seen by Provider: 11/29/21 18:10 Source: patient Mode of arrival: ambulatory Limitations: no limitations History of Present Illness: 41-year-old female who states that she had a fishing hook stuck in her shirt she went to remove it and it got stuck in her right index finger. There is trouble hook with 1 ana stuck in the distal tip of her right index finger. She is up-to-date on her tetanus shot she states she does have pain in the finger she rates a 4 out of 10. Associated symptoms: Deny chest pain, fever(s) or rash Review of Systems Const: Denies: fever(s), chills, body aches or change in appetite Eyes: Denies: blurry vision or eye discomfort ENMT: Denies: throat pain or dental pain Card: Denies: chest pain Resp: Denies: dyspnea GI: Denies: abdominal pain, nausea, vomiting or diarrhea : Denies: dysuria Musc: Reports: extremity pain Skin/Breast: Denies: rash Neuro: Denies: headache(s) Psych: Denies: depression Tab/Lymph: Denies: easy bruising All/Imm: Denies: urticaria PFSH ED PFSH: Medical History No pertinent family history No pertinent past medical history Social History Smoking and tobacco status: current every day smoker Female Reproductive History: Date of last menstrual period: 10/07/21 Physical Exam Const: COMMON NORMALS: no acute distress, patient oriented x3 and healthy appearing HENMT: COMMON NORMALS: normocephalic and atraumatic HEAD & SCALP: normocephalic and atraumatic Eye: COMMON NORMALS: Equal, round and reactive pupils present and EOMs intact bilaterally PUPIL: Yes Equal, round and reactive pupils present Neck/C-Spine: COMMON NORMALS: full ROM and supple Chest: COMMONS NORMALS: normal inspection of the chest and normal palpation of entire chest wall Resp: COMMON NORMALS: normal respiratory effort, No retractions, No use of accessory muscles and clear to auscultation bilaterally AUSCULTATION: clear to auscultation bilaterally Cardio: COMMON NORMALS: regular rate, regular rhythm and No murmurs present (Cardio) RATE: regular rate RHYTHM: regular rhythm GI: COMMON NORMALS: Normal to inspection, nondistended, normoactive bowel sounds present, Soft to palpation, non-tender and no masses PALPATION: Yes Soft to palpation Extremity: COMMON NORMALS: full ROM NARRATIVE EXTREMITY EXAM: Trouble hook embedded in right distal finger index finger Neuro: COMMON NORMALS: patient oriented x3, moves all extremities and no focal motor deficits Psych: COMMON NORMALS: mental status grossly normal, Normal thought process present and cooperative THOUGHT PROCESS: Normal thought process present Skin: COMMON NORMALS: no rashes or lesions noted and no wounds GENERAL SKIN EXAM: no rashes or lesions noted Procedures Foreign Body Removal Site: right and hand Description of foreign body: fish hook Sedation/Analgesia: other (1% lidocaine 10ml digital block right index finger) Technique: manual removal Confirmed by:: radiograph Complications: none Post-procedure exam: awake, alert Neurovascular: normal distal pulse Course Vital Signs: Vital signs: Vital Signs Temperature 97.6 F 11/29/21 17:50 Pulse Rate 97 11/29/21 17:50 Respiratory Rate 14 11/29/21 17:50 Blood Pressure 113/76 11/29/21 17:50 Pulse Oximetry 100 11/29/21 17:50 MDM - Extremity (Nontraumatic) Medical Decision Making Patient presents here with fishhook injury to her right index finger was able to remove the fishhook x-ray shows no retained foreign body she is up-to-date on tetanus she is stable for discharge she is to follow-up PCP and return if worsening. Discharge Plan Discharge Patient Disposition: Home Clinical Impression: Fish hook in finger Condition: Stable Prescriptions: No Action ondansetron 4 mg tablet,disintegrating 4 mg PO Q8H PRN (Reason: nausea and vomiting) Qty: 20 0RF methocarbamol 500 mg tablet 1,000 mg PO Q8H Qty: 30 0RF diclofenac sodium 75 mg tablet,delayed release (DR/EC) 75 mg PO BID Qty: 14 0RF Discharge Orders: Discharge ED (Routine); Ordered 11/29/21 Ordered By: Destiny Jin Referrals: Julián Yañez MD [Primary Care Provider] - 1-3 days Discharge Diet: Advance as tolerated Discharge Activity: Resume usual activity Patient Instructions: Conrad Injuries Coding Level of Care Code ED Packing And Wrapping Supervisor for Yung Melendez
== END 2021-11-29 18:47 | disposition home or self-care (01) ==
PROVIDERS: Emergency Provider Emergency Medicine; PCP Family Medicine
DX: S61.240A Puncture wound with foreign body of right index finger without damage to nail, initial encounter (principal); F17.210 Nicotine dependence, cigarettes, uncomplicated; W26.8XXA Contact with other sharp object(s), not elsewhere classified, initial encounter
CPT/HCPCS: 64450; 73120; 99283

== ENCOUNTER 2021-12-07 05:06 | Emergency (ER) | payer BC, MEDICAID, SELFPAY ==
[2021-12-07 05:11] VITALS: BP 118/78; PULSE 103; RESP 17; TEMP 36.6; O2SAT 100; BMI 22.8
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
[2021-12-07] MEDS: oxyCODONE-APAP 5-325 mg Tablet 1 TAB PO (06:28)
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
== END 2021-12-07 06:38 | disposition home or self-care (01) ==
PROVIDERS: Emergency Provider Emergency Medicine; PCP Family Medicine
DX: S23.41XA Sprain of ribs, initial encounter (principal); X58.XXXA Exposure to other specified factors, initial encounter; Y93.83 Activity, rough housing and horseplay; F17.210 Nicotine dependence, cigarettes, uncomplicated
CPT/HCPCS: 71101; 99283

== ENCOUNTER 2021-12-11 02:06 | Emergency (ER) | payer BC, MEDICAID, SELFPAY ==
[2021-12-11 02:16] VITALS: BMI 22.8
--- NOTE | 2021-12-11 02:16 | PC.NURSE ---
attempted to obtain UA at this time, patient refuses.
[2021-12-11 02:18] VITALS: BP 129/83; PULSE 79; RESP 16; TEMP 36.8; O2SAT 99
--- NOTE | 2021-12-11 02:27 | W.ED.ABDPA2 ---
HPI - Abdominal Pain General: Chief Complaint: Abdominal Pain Stated Complaint: abd Pain N/V Time Seen by Provider: 12/11/21 02:13 Source: patient Mode of arrival: ambulatory Limitations: no limitations History of Present Illness: [id number] female has had cough congestion over the last 2 days and today started having some nausea and vomiting. States that her vomiting is worse with movement she is having abdominal burning from her vomiting she denies any severe pain currently denies any fever denies any diarrhea she is in no distress here. Associated Symptoms: Reports nausea and vomiting; Denies chills, dysuria and fever(s) Related Data: Date of Last Menstrual Period: 11/26/21 Review of Systems Const: Denies: fever(s), chills, body aches or change in appetite Eyes: Denies: blurry vision or eye discomfort ENMT: Denies: throat pain or dental pain Card: Denies: chest pain Resp: Denies: dyspnea GI: Reports: abdominal pain, nausea and vomiting : Denies: dysuria Musc: Denies: neck pain or back pain Skin/Breast: Denies: rash Neuro: Denies: headache(s) Psych: Denies: depression Tab/Lymph: Denies: easy bruising All/Imm: Denies: urticaria PFSH ED PFSH: Medical History No pertinent family history No pertinent past medical history Social History Smoking and tobacco status: current every day smoker Female Reproductive History: Date of last menstrual period: 11/26/21 Physical Exam Const: COMMON NORMALS: no acute distress, patient oriented x3 and healthy appearing HENMT: COMMON NORMALS: normocephalic and atraumatic HEAD & SCALP: normocephalic and atraumatic Eye: COMMON NORMALS: Equal, round and reactive pupils present and EOMs intact bilaterally PUPIL: Yes Equal, round and reactive pupils present Neck/C-Spine: COMMON NORMALS: full ROM and supple Chest: COMMONS NORMALS: normal inspection of the chest and normal palpation of entire chest wall Resp: COMMON NORMALS: normal respiratory effort, No retractions, No use of accessory muscles and clear to auscultation bilaterally AUSCULTATION: clear to auscultation bilaterally Cardio: COMMON NORMALS: regular rate, regular rhythm and No murmurs present (Cardio) RATE: regular rate RHYTHM: regular rhythm GI: COMMON NORMALS: Normal to inspection, nondistended, normoactive bowel sounds present, Soft to palpation, non-tender and no masses PALPATION: Yes Soft to palpation Extremity: COMMON NORMALS: normal to inspection and full ROM Neuro: COMMON NORMALS: patient oriented x3, moves all extremities and no focal motor deficits Psych: COMMON NORMALS: mental status grossly normal, Normal thought process present and cooperative THOUGHT PROCESS: Normal thought process present Skin: COMMON NORMALS: no rashes or lesions noted and no wounds GENERAL SKIN EXAM: no rashes or lesions noted Course Vital Signs: Vital signs: Vital Signs Temperature 98.3 F 12/11/21 02:18 Pulse Rate 79 12/11/21 03:53 Respiratory Rate 16 12/11/21 03:53 Blood Pressure 121/81 12/11/21 03:53 Pulse Oximetry 100 12/11/21 03:53 Oxygen Delivery Me thod 12/11/21 02:52 MDM - Abdominal Pain Medical Decision Making Patient presents here with abdominal pain along with nausea and vomiting likely viral in origin her white count here is normal exam is benign she feels improved after Reglan she is to follow-up with PCP and return if worsening she understands agrees to plan. Lab Data : 12/11/21 02:49 12/11/21 02:49 Labs/Radiology: Laboratory Results WBC 6.6 10^3/uL (4.0-10.0) 12/11/21 02:49 RBC 4.05 10^6/uL (4.1-5.3) L 12/11/21 02:49 Hgb 10.0 g/dL (11.5-15.3) L 12/11/21 02:49 Hct 32.0 % (37.0-47.0) L 12/11/21 02:49 MCV 79.0 fl (81-99) L 12/11/21 02:49 MCH 24.7 pg (28.0-34.0) L 12/11/21 02:49 MCHC 31.3 g/dL (30.0-36.0) 12/11/21 02:49 RDW 16.3 % (12.1-15.1) H 12/11/21 02:49 Plt Count 254 10^3/cmm (130-400) 12/11/21 02:49 MPV 9.1 fL (7.4-10.4) 12/11/21 02:49 Neut % (Auto) 54.0 % 12/11/21 02:49 Lymph % (Auto) 32.5 % 12/11/21 02:49 Sterling % (Auto) 10.3 % 12/11/21 02:49 Eos % (Auto) 2.4 % 12/11/21 02:49 Baso % (Auto) 0.6 % 12/11/21 02:49 Neut # (Auto) 3.56 10^3/uL (1.8-7.7) 12/11/21 02:49 Lymph # (Auto) 2.1 10^3/uL (0.8-4.8) 12/11/21 02:49 Sterling # (Auto) 0.7 10^3/uL (0.2-0.9) 12/11/21 02:49 Eos # (Auto) 0.2 10^3/uL (0.0-0.8) 12/11/21 02:49 Baso # (Auto) 0.0 10^3/uL (0.0-0.1) 12/11/21 02:49 Nucleated RBC % (auto) 0 % 12/11/21 02:49 Nucleated RBCs # 0.0 /100WBC 12/11/21 02:49 Sodium 140 mmol/L (136-145) 12/11/21 02:49 Potassium 4.1 mmol/L (3.5-5.1) 12/11/21 02:49 Chloride 104 mmol/L (98-107) 12/11/21 02:49 Carbon Dioxide 28 mmol/L (22-29) 12/11/21 02:49 Anion Gap 12.1 (5-19) 12/11/21 02:49 BUN 18 mg/dL (6-20) 12/11/21 02:49 Creatinine 0.7 mg/dL (0.5-0.9) 12/11/21 02:49 GFR Calculation 93.2 mL/min (90-130) 12/11/21 02:49 Glucose 91 mg/dL (65-115) 12/11/21 02:49 Calculated Osmolality 291 mOsm/kg (285-295) 12/11/21 02:49 Calcium 10.2 mg/dL (8.5-10.5) 12/11/21 02:49 Total Bilirubin 0.2 mg/dL (0.15-1.2) 12/11/21 02:49 AST 17 U/L (0-32) 12/11/21 02:49 ALT 13 U/L (0-33) 12/11/21 02:49 Alkaline Phosphatase 92 IU/L (35-105) 12/11/21 02:49 Total Protein 6.5 g/dL (6.6-8.7) L 12/11/21 02:49 Albumin 4.1 g/dL (3.5-5.2) 12/11/21 02:49 Globulin 2.4 g/dL (1.3-4.6) 12/11/21 02:49 Lipase 50 U/L (13-60) 12/11/21 02:49 HCG, Qual Negative (Negative) 12/11/21 02:49 SARS-CoV-2 Ag (Rapid) Negative (Negative) 12/11/21 02:49 Discharge Plan Discharge Patient Disposition: Home Clinical Impression: Abdominal pain, Vomiting Condition: Stable Prescriptions: New Reglan 10 mg tablet 10 mg PO Q6H PRN (Reason: nausea and vomiting) Qty: 20 0RF No Action ondansetron 4 mg tablet,disintegrating 4 mg PO Q8H PRN (Reason: nausea and vomiting) Qty: 20 0RF methocarbamol 500 mg tablet 1,000 mg PO Q8H Qty: 30 0RF ketorolac 10 mg tablet 10 mg PO TID PRN (Reason: pain) Qty: 10 0RF Discharge Orders: Discharge ED (Routine); Ordered 12/11/21 Ordered By: Destiny Jin Referrals: Julián Yañez MD [Primary Care Provider] - 1-3 days Discharge Diet: Advance as tolerated Discharge Activity: Resume usual activity Patient Instructions: Acute Nausea and Vomiting (ED), Abdominal Pain (ED) Coding Level of Care Code ED Candle Making Supervisor for Chg Fwd Exam Comprehensive
[2021-12-11 02:52] VITALS: BP 121/81; PULSE 82; RESP 16; O2SAT 99
[2021-12-11 02:56] LABS: Basophils % 0.6 %; Eosinophils # 0.2 10^3/uL (0.0-0.8); Eosinophils % 2.4 %; Lymphocytes # 2.1 10^3/uL (0.8-4.8); Lymphocytes % 32.5 %; Mean Corpuscular HGB Conc 31.3 g/dL (30.0-36.0); Mean Corpuscular Hemoglobin 24.7 pg (28.0-34.0); Mean Platelet Volume 9.1 fL (7.4-10.4); Monocytes # 0.7 10^3/uL (0.2-0.9); Monocytes % 10.3 %; Neutrophils # 3.56 10^3/uL (1.8-7.7); Nucleated Red Blood Cells % 0 %; Platelet Count 254 10^3/cmm (130-400); Red Blood Count 4.05 10^6/uL (4.1-5.3); Red Cell Distribution Width 16.3 % (12.1-15.1); White Blood Count 6.6 10^3/uL (4.0-10.0)
--- NOTE | 2021-12-11 02:57 | XRR_ITS ---
PROCEDURE INFORMATION: Exam: XR Chest Exam date and time: 12/11/2021 3:06 AM Age: 41 years old Clinical indication: Cough TECHNIQUE: Imaging protocol: Radiologic exam of the chest. Views: 1 view. COMPARISON: CR (CHEST, ) 12/07/2021 6:02 AM FINDINGS: Lungs: No consolidation. Pleural spaces: Unremarkable. No pleural effusion. No pneumothorax. Heart/Mediastinum: No cardiomegaly. Bones/joints: No acute fracture. XR/XR chest 1V portable [id number] IMPRESSION: No acute findings.
[2021-12-11] MEDS: diphenhydrAMINE 50 mg/mL SDV 1mL IVP (03:01)
[2021-12-11] MEDS: metoclopramide 5 mg/mL SDV 2 mL 10 MG IVP (03:01)
[2021-12-11 03:20] LABS: Alanine Aminotransferase 13 U/L (0-33); Albumin Level 4.1 g/dL (3.5-5.2); Alkaline Phosphatase 92 IU/L (35-105); Anion Gap 12.1 (5-19); Aspartate Amino Transferase 17 U/L (0-32); Blood Urea Nitrogen 18 mg/dL (6-20); Calcium 10.2 mg/dL (8.5-10.5); Carbon Dioxide 28 mmol/L (22-29); Chloride 104 mmol/L (98-107); Globulin 2.4 g/dL (1.3-4.6); Glomerular Filtration Rate 93.2 mL/min (90-130); Glucose 91 mg/dL (65-115); HCG, Serum Qual Negative (Negative); Lipase 50 U/L (13-60); Osmolality Calculated 291 mOsm/kg (285-295); Potassium 4.1 mmol/L (3.5-5.1); SARS Covid-2 Antigen Negative (Negative); Sodium 140 mmol/L (136-145); Total Bilirubin 0.2 mg/dL (0.15-1.2); Total Protein 6.5 g/dL (6.6-8.7)
[2021-12-11 03:53] VITALS: BP 121/81; PULSE 79; RESP 16; O2SAT 100
== END 2021-12-11 03:54 | disposition home or self-care (01) ==
PROVIDERS: Physician Assistant; Emergency Provider Emergency Medicine; PCP Family Medicine
DX: R10.9 Unspecified abdominal pain (principal); R11.11 Vomiting without nausea; F17.210 Nicotine dependence, cigarettes, uncomplicated; Z20.822 Contact with and (suspected) exposure to COVID-19
CPT/HCPCS: 71045; 80053; 83690; 84703; 85025; 87426; 96374; 96375; 99284; J1200; J2765

== ENCOUNTER 2021-12-22 23:00 | Emergency (ER) | payer BC, MEDICAID, SELFPAY ==
[2021-12-22 23:08] VITALS: BP 129/84; PULSE 81; RESP 18; TEMP 36.6; O2SAT 96; BMI 22.8
[2021-12-22 23:36] LABS: Basophils % 0.5 %; Eosinophils # 0.2 10^3/uL (0.0-0.8); Eosinophils % 1.9 %; Hematocrit 31.2 % (37.0-47.0); Hemoglobin 9.6 g/dL (11.5-15.3); Lymphocytes # 1.8 10^3/uL (0.8-4.8); Lymphocytes % 22.7 %; Mean Corpuscular HGB Conc 30.8 g/dL (30.0-36.0); Mean Corpuscular Hemoglobin 24.1 pg (28.0-34.0); Mean Corpuscular Volume 78.2 fl (81-99); Mean Platelet Volume 8.9 fL (7.4-10.4); Monocytes # 0.7 10^3/uL (0.2-0.9); Monocytes % 8.7 %; Neutrophils # 5.29 10^3/uL (1.8-7.7); Neutrophils % 66.1 %; Nucleated Red Blood Cells % 0 %; Platelet Count 449 10^3/cmm (130-400); Red Blood Count 3.99 10^6/uL (4.1-5.3); Red Cell Distribution Width 16.2 % (12.1-15.1)
--- NOTE | 2021-12-22 23:38 | ED_ITS ---
HPI - Abdominal Pain General: Chief Complaint: Abdominal Pain Stated Complaint: abd pain N/V Time Seen by Provider: 12/22/21 23:14 Source: patient Mode of arrival: ambulatory Limitations: no limitations History of Present Illness: 41-year-old female has a history of gastritis and chronic abdominal pain states she been having worsening pain today she states that epigastric in nature sharp rates an 8 out of 10 she had some nausea she denies any fever she denies any worsening improving factors denies any chest pain denies any radiation of her pain. Associated Symptoms: Reports nausea and vomiting; Denies chills, dysuria and fever(s) Related Data: Date of Last Menstrual Period: 12/18/21 Review of Systems Const: Denies: fever(s), chills, body aches or change in appetite Eyes: Denies: blurry vision or eye discomfort ENMT: Denies: throat pain or dental pain Card: Denies: chest pain Resp: Denies: dyspnea GI: Reports: abdominal pain, nausea and vomiting : Denies: dysuria Musc: Denies: neck pain or back pain Skin/Breast: Denies: rash Neuro: Denies: headache(s) Psych: Denies: depression Tab/Lymph: Denies: easy bruising All/Imm: Denies: urticaria PFSH ED PFSH: Medical History No pertinent family history No pertinent past medical history Social History Smoking and tobacco status: current every day smoker Female Reproductive History: Date of last menstrual period: 12/18/21 Physical Exam Const: COMMON NORMALS: no acute distress, patient oriented x3 and healthy appearing HENMT: COMMON NORMALS: normocephalic and atraumatic HEAD & SCALP: normocephalic and atraumatic Eye: COMMON NORMALS: Equal, round and reactive pupils present and EOMs intact bilaterally PUPIL: Yes Equal, round and reactive pupils present Neck/C-Spine: COMMON NORMALS: full ROM and supple Chest: COMMONS NORMALS: normal inspection of the chest and normal palpation of entire chest wall Resp: COMMON NORMALS: normal respiratory effort, No retractions, No use of accessory muscles and clear to auscultation bilaterally AUSCULTATION: clear to auscultation bilaterally Cardio: COMMON NORMALS: regular rate, regular rhythm and No murmurs present (Cardio) RATE: regular rate RHYTHM: regular rhythm GI: COMMON NORMALS: Normal to inspection, nondistended, normoactive bowel sounds present, Soft to palpation, non-tender and no masses PALPATION: Yes Soft to palpation Extremity: COMMON NORMALS: normal to inspection and full ROM Neuro: COMMON NORMALS: patient oriented x3, moves all extremities and no focal motor deficits Psych: COMMON NORMALS: mental status grossly normal, Normal thought process present and cooperative THOUGHT PROCESS: Normal thought process present Skin: COMMON NORMALS: no rashes or lesions noted and no wounds GENERAL SKIN EXAM: no rashes or lesions noted Course Vital Signs: Vital signs: Vital Signs Temperature 97.8 F 12/22/21 23:08 Pulse Rate 88 12/23/21 00:29 Respiratory Rate 18 12/23/21 00:29 Blood Pressure 111/72 12/23/21 00:29 Pulse Oximetry 97 12/23/21 00:29 Oxygen Delivery Me thod 12/23/21 00:29 MDM - Abdominal Pain Medical Decision Making Patient presents with abdominal pain is likely gastritis patient's blood work here is normal she feels improved after Reglan her exam here is benign we will place her on Protonix get her surgery follow-up she is return if worsening she understands agrees plan. Lab Data : 12/22/21 23:28 12/22/21 23:28 Labs/Radiology: Laboratory Results WBC 8.0 10^3/uL (4.0-10.0) 12/22/21 23:28 RBC 3.99 10^6/uL (4.1-5.3) L 12/22/21 23:28 Hgb 9.6 g/dL (11.5-15.3) L 12/22/21 23:28 Hct 31.2 % (37.0-47.0) L 12/22/21 23:28 MCV 78.2 fl (81-99) L 12/22/21 23:28 MCH 24.1 pg (28.0-34.0) L 12/22/21 23:28 MCHC 30.8 g/dL (30.0-36.0) 12/22/21 23:28 RDW 16.2 % (12.1-15.1) H 12/22/21: Plt Count 449 10^3/cmm (130-400) H 12/22/21 23: MPV 8.9 fL (7.4-10.4) 12/22/21: Neut % (Auto) 66.1 % 12/22/21: Lymph % (Auto) 22.7 % 12/22/21: [place] % (Auto) 8.7 % 12/22/21: Eos % (Auto) 1.9 % 12/22/21: Baso % (Auto) 0.5 % 12/22/21: Neut # (Auto) 5.29 10^3/uL (1.8-7.7) 12/22/21: Lymph # (Auto) 1.8 10^3/uL (0.8-4.8) 12/22/21: [place] # (Auto) 0.7 10^3/uL (0.2-0.9) 12/22/21: Eos # (Auto) 0.2 10^3/uL (0.0-0.8) 12/22/21: Baso # (Auto) 0.0 10^3/uL (0.0-0.1) 12/22/21: Nucleated RBC % (auto) 0 % 12/22/21: Nucleated RBCs # 0.0 /100WBC 12/22/21: Sodium 142 mmol/L (136-145) 12/22/21: Potassium 3.3 mmol/L (3.5-5.1) L 12/22/21: Chloride 100 mmol/L (98-107) 12/22/21 23: Carbon Dioxide 30 mmol/L (22-29) H 12/22/21: Anion Gap 15.3 (5-19) 12/22/21 23: BUN 24 mg/dL (6-20) H 12/22/21 23: Creatinine 0.7 mg/dL (0.5-0.9) 12/22/21 23: GFR Calculation 93.2 mL/min (90-130) 12/22/21 23: Glucose 107 mg/dL (65-115) 12/22/21 23:28 Calculated Osmolality 299 mOsm/kg (285-295) H 12/22/21 23:28 Calcium 9.3 mg/dL (8.5-10.5) 12/22/21 23:28 Total Bilirubin 0.3 mg/dL (0.15-1.2) 12/22/21 23:28 AST 17 U/L (0-32) 12/22/21 23:28 ALT 15 U/L (0-33) 12/22/21 23:28 Alkaline Phosphatase 101 U/L (35-105) 12/22/21 23:28 Total Protein 7.1 g/dL (6.6-8.7) 12/22/21 23:28 Albumin 4.6 g/dL (3.5-5.2) 12/22/21: Globulin 2.5 g/dL (1.3-4.6) 12/22/21 23: Lipase 31 U/L (13-60) 12/22/21 23:28 HCG, Qual Negative (Negative) 12/23/21 01:15 Urine Color Yellow (Yellow) 12/23/21 01:15 Urine Appearance Clear (CLEAR) 12/23/21 01:15 Urine pH 6.5 (5-7) 12/23/21 01:15 Ur Specific [place] 1.020 (1.005-1.030) 12/23/21 01:15 Urine Protein Neg (Negative) 12/23/21 01:15 Urine Glucose (UA) Norm (Normal) 12/23/21 01:15 Urine Ketones 1+ (Negative) H 12/23/21 01:15 Urine Blood Neg (Negative) 12/23/21 01:15 Urine Nitrate Negative (Negative) 12/23/21 01:15 Urine Bilirubin 1+ (Negative) H 12/23/21 01:15 Urine Urobilinogen 8 mg/dL (Negative) H 12/23/21 01:15 Ur Leukocyte Esterase Negative (Negative) 12/23/21 01:15 Discharge Plan Discharge Patient Disposition: Home Clinical Impression: Abdominal pain Qualifiers: Abdominal location: epigastric Qualified Code(s): R10.13 - Epigastric pain Condition: Stable Prescriptions: New Protonix 40 mg tablet,delayed release (DR/EC) 40 mg PO DAILY Qty: 60 0RF No Action ondansetron 4 mg tablet,disintegrating 4 mg PO Q8H PRN (Reason: nausea and vomiting) Qty: 20 0RF methocarbamol 500 mg tablet 1,000 mg PO Q8H Qty: 30 0RF ketorolac 10 mg tablet 10 mg PO TID PRN (Reason: pain) Qty: 10 0RF Reglan 10 mg tablet 10 mg PO Q6H PRN (Reason: nausea and vomiting) Qty: 20 0RF Discharge Orders: Discharge ED (Routine); Ordered 12/23/21 Ordered By: Destiny Jin Referrals: Prabhu Javed MD [Physician] - 1-3 days Julián Yañez MD [Primary Care Provider] - Discharge Diet: Advance as tolerated Discharge Activity: Resume usual activity Patient Instructions: Abdominal Pain (ED) Coding Level of Care Code ED Supervisor Wool Shearing for Mikhailg Fwd Exam Comprehensive
[2021-12-22] MEDS: lidocaine 2% viscous 15 ML, aluminum-mag hydrox-simethicon 30 ML, sucralfate oral liq 1 GM PO (23:41)
[2021-12-22 23:42] VITALS: RESP 21; O2SAT 100
[2021-12-22] MEDS: morphine 4 mg/mL SDV 1 mL IVP (23:42)
[2021-12-22] MEDS: metoclopramide 5 mg/mL SDV 2 mL 10 MG IVP (23:46)
[2021-12-22] MEDS: diphenhydrAMINE 50 mg/mL SDV 1mL IVP (23:47)
[2021-12-23 00:04] LABS: Alanine Aminotransferase 15 U/L (0-33); Albumin Level 4.6 g/dL (3.5-5.2); Alkaline Phosphatase 101 U/L (35-105); Anion Gap 15.3 (5-19); Aspartate Amino Transferase 17 U/L (0-32); Blood Urea Nitrogen 24 mg/dL (6-20); Calcium 9.3 mg/dL (8.5-10.5); Carbon Dioxide 30 mmol/L (22-29); Chloride 100 mmol/L (98-107); Globulin 2.5 g/dL (1.3-4.6); Glomerular Filtration Rate 93.2 mL/min (90-130); Glucose 107 mg/dL (65-115); Lipase 31 U/L (13-60); Osmolality Calculated 299 mOsm/kg (285-295); Potassium 3.3 mmol/L (3.5-5.1); Sodium 142 mmol/L (136-145); Total Bilirubin 0.3 mg/dL (0.15-1.2); Total Protein 7.1 g/dL (6.6-8.7)
[2021-12-23 00:29] VITALS: BP 111/72; PULSE 88; RESP 18; O2SAT 97
[2021-12-23 01:00] VITALS: BP 102/68; PULSE 71; RESP 17; O2SAT 98
[2021-12-23 01:22] LABS: Add Urine Microscopic? NO
[2021-12-23 01:36] LABS: HCG Qualitative Urine. Negative (Negative)
[2021-12-23 01:46] LABS: Urine Appearance Clear (CLEAR); Urine Color Yellow (Yellow); pH Urine 6.5 (5-7)
[2021-12-23 01:47] LABS: Bilirubin Urine 1+ (Negative); Blood Urine Neg (Negative); Glucose Urine UA Norm (Normal); Ketones Urine 1+ (Negative); Leukocyte Esterase Urine Negative (Negative); Nitrate Urine Negative (Negative); Protein Urine Neg (Negative); Urobilinogen Urine 8 mg/dL (Negative)
[2021-12-23 01:49] LABS: Charge for UA Resulting for Rev
[2021-12-23 02:19] VITALS: BP 138/73; PULSE 74; RESP 17; O2SAT 96
--- NOTE | 2021-12-23 14:05 | DCPLANNER ---
Addendum entered by Geovanna Redd 01/08/22 08:22: warehouse delivery manager received the following message from general surgery regarding follow up appointment for patient: Mailing a letter due to 3rd attempt of no contact On 12/24/21 @ 10:00 Jessie Thacker Wrote To [employer] Front Off call unable to go through 12/24 On 12/23/21 @ 14:11 Jessie Thacker Wrote To [employer] Front Off call unable to go through Original Note: warehouse delivery manager had message to schedule a follow up appointment for patient with general surgery. warehouse delivery manager sent patients information to the front office staff at general surgery. Patients information will be printed and reviewed. Clinic will call patient with appointment information.
== END 2021-12-23 02:20 | disposition home or self-care (01) ==
PROVIDERS: Emergency Provider Emergency Medicine; PCP Family Medicine
DX: R10.13 Epigastric pain (principal); F17.210 Nicotine dependence, cigarettes, uncomplicated
CPT/HCPCS: 80053; 81003; 81025; 83690; 85025; 96374; 96375; 99284; J1200; J2270; J2765

== ENCOUNTER 2021-12-25 12:43 | Inpatient (IN) | payer BC, SELFPAY ==
[2021-12-25 12:49] VITALS: BP 112/80; PULSE 103; RESP 18; TEMP 36.7; O2SAT 95; BMI 22.8
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
[2021-12-25 15:17] LABS: Basophils % 0.5 %; Eosinophils # 0.2 10^3/uL (0.0-0.8); Eosinophils % 2.4 %; Hematocrit 32.2 % (37.0-47.0); Hemoglobin 9.6 g/dL (11.5-15.3); Lymphocytes # 1.7 10^3/uL (0.8-4.8); Lymphocytes % 25.2 %; Mean Corpuscular HGB Conc 29.8 g/dL (30.0-36.0); Mean Corpuscular Hemoglobin 24.1 pg (28.0-34.0); Mean Corpuscular Volume 80.7 fl (81-99); Monocytes # 0.4 10^3/uL (0.2-0.9); Monocytes % 5.7 %; Neutrophils # 4.37 10^3/uL (1.8-7.7); Neutrophils % 65.9 %; Nucleated Red Blood Cells % 0 %; Platelet Count 395 10^3/cmm (130-400); Red Blood Count 3.99 10^6/uL (4.1-5.3); Red Cell Distribution Width 16.2 % (12.1-15.1); White Blood Count 6.6 10^3/uL (4.0-10.0)
--- NOTE | 2021-12-25 15:47 | PC.NURSE ---
Dr. Stock at bedside
[2021-12-25 15:50] LABS: Acetaminophen < 5.0 ug/mL (10-30); Alanine Aminotransferase 14 U/L (0-33); Albumin Level 4.1 g/dL (3.5-5.2); Alkaline Phosphatase 86 U/L (35-105); Anion Gap 14.6 (5-19); Aspartate Amino Transferase 17 U/L (0-32); Blood Urea Nitrogen 16 mg/dL (6-20); Carbon Dioxide 25 mmol/L (22-29); Chloride 102 mmol/L (98-107); Free T4 Free Thyroxine 1.32 ng/dL (0.82-1.77); Globulin 2.6 g/dL (1.3-4.6); Glomerular Filtration Rate 111.3 mL/min (90-130); Glucose 74 mg/dL (65-115); Lipase 37 U/L (13-60); Osmolality Calculated 286 mOsm/kg (285-295); Potassium 3.6 mmol/L (3.5-5.1); Salicylate < 0.3 mg/dL (3-10); Sodium 138 mmol/L (136-145); Thyroid Stimulating Hormone 0.51 uIU/mL (0.27-4.20); Total Bilirubin 0.4 mg/dL (0.15-1.2); Total Protein 6.7 g/dL (6.6-8.7)
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
--- NOTE | 2021-12-25 17:38 | PC.NURSE ---
pt remains in bed, rocking back and forth leaning against her
--- NOTE | 2021-12-25 17:57 | PC.NURSE ---
attempted to call report to [facility], informed unavailable to take report at this time.
--- NOTE | 2021-12-25 18:22 | PC.NURSE ---
Report called to Jacques on [facility]
[2021-12-25 18:30] VITALS: BP 124/82; PULSE 89; RESP 18; O2SAT 98
[2021-12-25] MEDS: LORazepam 2 mg/mL INJ 1 mL IM (18:50)
[2021-12-25] MEDS: haloperidol inj 5 mg/mL INJ 1 mL IM (18:50)
--- NOTE | 2021-12-25 18:50 | PC.NURSE ---
PRN ATIVAN/HALDOL ATIVAN 2 MG GIVEN IM WITH HALDOL 5 MG IM IN RIGHT DELTOID. UPON ARRIVAL TO UNIT FROM [facility], PT ROCKING BACK AND FORTH, HOLDING HER HANDS OVER HER EARS, MOANING, STATED SHE WAS NERVOUS BUT WOULDN'T ELABORATE. STAFF EDUCATED PT THAT SHE WAS SAFE, STAFF HAD HER RIGHT DIRECTLY ACROSS FROM NURSES STATION FOR CONSTANT OBSERVATION....STAFF OFFERED FOOD/DRINK WHICH PATIENT DENIED AT THIS TIME. STAFF WILL CONT TO MONITOR CLOSELY
--- NOTE | 2021-12-25 19:00 | PC.ADMIT ---
[facility] [address] [facility] Admission Note: The patient,Sheeba Cobian,41 y/o, was given written information regarding hospital policies, unit procedures and contact persons. Patient's smoking status: current every day smoker. Vital Signs - 8 hr 12/25/21 12:49 12/25/21 18:33 12/25/21 18:30 Temperature 98.1 F Pulse Rate 103 H 89 Respiratory Rate 18 18 Blood Pressure 112/80 124/82 Pulse Oximetry 95 98 Oxygen Delivery Method Room Air Room Air Room Air ADMITTED FROM ER VIA WHEELCHAIR AND SECURITY. PT ON A 96 HOUR HOLD THAT ENDS ON 12/31/21 @1825. PT UNCOOPERATIVE, HITTING HERSELF IN HEAD AND FACE WHILE BEATING ON HER HEAD. PT WILL NOT COOPERATE WITH ASSESSMENT THIS RN GOT MUCH INFO ALLOWED BY PT. PT WAS SO AGGRESSIVE AND DECLINES PO MEDS STATES SHE CAN NOT TAKE MEDICATIONS BY SWALLOWING. INJECTION OF HALDOL AND ATIVAN WAS OFFERED, PT DID AGREE. PT WAS GIVEN HALDOL 5 MG AND ATIVAN 2 MG TO LEFT DELTOID BY PRODUCTION CONTROLLER. PT HAD NOT RECEIVED ANY MEDICATION PRIOR TO BE TRANSFERRED TO [facility]. ONCE INJECTION WAS GIVEN PT LAID IN BED IN THE POSITION HOLDING HER HEAD, PT DID STOP CRYING.
[2021-12-25 19:47] VITALS: RESP 15
[2021-12-26 05:24] VITALS: BP 124/82; PULSE 89; RESP 15; TEMP 36.7
--- NOTE | 2021-12-26 08:53 | PC.OT ---
Pt sleeping and RN states pt not appropriate for eval at this time. Will attempt eval at later date.
--- NOTE | 2021-12-26 09:19 | P.NPUHP_ITS ---
Providers/Chief Complaint Admitting Physician: Nicolás Stock MD Primary Care Provider: Julián Yañez MD Chief Complaint: psych eval HPI NPU History of Present Illness Sheeba Cobian is a 41 year old female who presented to the emergency department with the following report: Chief complaint: Psychiatric Symptoms Stated complaint: psych eval Time Seen by Provider: 12/25/21 13:23 History of Present Illness: HPI: Patient is a 41-year-old female with no significant past medical history presenting to the emergency room for evaluation of anxiety and emotional distress. Patient tells me for the last 3-month, patient she has been followed by a white car with three people. Patient does not know who they are but she thinks she has been followed. She has heard voices from this vehicle telling her I should . Patient reports emotional dist ress from this and patient's has tells me that this has been going on for the last few months. Last month patient had suicide cutting her wrist due to the voices in her head reminding her about the vehicle with 3 women. Patient reports feeling depressed. Patient has not been seen by her behavioral health therapist recently. Today, patient is emotionally distraught tells me that she thinks somebody is following her. Patient tells me that when she sees the white vehicle she has been taunted in the past. Patient denies any SI or HI. Patient's reports he and the vehicle once. Patient denies hearing voices. Patient denies any recent substance use. Onset: acute on chronic Duration: ongoing Location: home Severity: severe Associated symptoms: Deny chest pain, dyspnea, nausea, rash, palpitations or vomiting. She was admitted to the neuropsychiatric unit for definitive treatment of those issues on a 96-hour hold. She presents today having been in the emergency dep artment at least 10 times this year already and there are encounters from last year as well. She presents reporting that she is struggling with someone following her. She reports that the woman from third shift at the hospital. She reports that she knows this person because her works third shift at the hospital and she must of seen her there. Her confirmed that he does work third shift but he is not clear as to what 1 and she is speaking of. She reports that she has a picture of the person or least part of her body but is on her daughter's phone and had an elaborate story of how she got that picture. She has not reported that this person is harassing her specifically but just that she looks up and she is everywhere that the patient is. She also reported seeing some white car driving around that she could not identify who it was but also stated that this person was also followed her. She could give no reason why a person at the hospital whom they have no knowledge of would be following her. Expressed being very upset because her mother and other people are telling her that its not real. She endorsed that her saw this white car. He endorsed that that was true but he saw his car 1 time and it was just driving slowly on the road the 1 time he saw it. She is convinced that these facts she presents are true and that she does need something for anxiety to help her deal with these people/stalkers. When she came down to the unit last night she was unable to manage herself reasonably on the unit and did require as needed medication to assist in her transition to the unit. She endorses that she needs antianxiety medication we are discussing the fact that her presentation is suggestive of a need for antipsychotic medication. We discussed the risk- benefit alternatives of a trial of Zyprexa and she understood and agreed to consider trying the medication today. Psychiatric history: She denied any significant inpatient or outpatient services or history of med management treatment. Substance use history: She denied any significant drug and alcohol history however her last visit there was a drug screen was in February of 2019 and it was positive for cannabis. Her UDS has not returned. Meds NPU Home Medications Medication Instructions Recorded Confirmed Last Taken Type No Known Home Medications 12/26/21 12/26/21 Unknown History Allergies Allergy/AdvReac Type Severity Reaction Status Date / Time No Known Allergies Allergy Verified 12/25/21 15:20 [facility] NPU PFS: Medical History No pertinent family history No pertinent past medical history Social History Smoking and tobacco status: current every day smoker Mental Status Exam MSE Comments: This is a slender white female in hospital scrubs with limited grooming and absent eye contact. No abnormal movements except for significant psychomotor agitation. Somewhat cooperative with exam in moderate distress. Speech was limited but normal rate and decreased volume. Mood described as anxious, affect congruent and labile. Thought process was linear. Thought content: Patient denied suicidal homicidal ideation, there were no delusions reported but clear paranoid and persecutory thinking was present, she did not endorse auditory or visual hallucinations but likely is experiencing perceptual disturbances. Attention and concentration were limited and memory was unreliable but none were formally tested. She is alert and oriented x person and place. Insight and judgment are impaired. Impulse control is limited versus impaired. Vitals/I&O/Wt Last Vital Signs Temp 98.1 F 12/25/21 12:49 Pulse 89 12/25/21 18:30 Resp 15 12/25/21 19:47 BP 124/82 12/25/21 18:30 Pulse Ox 98 12/25/21 18:30 O2 Del Method 12/25/21 18:33 Weight last 48 hrs Weight 54.885 kg Data NPU : 12/25/21 15:10 12/25/21 15:10 A&P Assessment and plan (1) Psychosis: Status: Acute (2) Suicidal ideation: Status: Acute (3) Auditory hallucination: Status: Acute (4) Anxiety: Status: Acute (5) Cluster B personality disorder: Status: Acute Plan This is a 41-year-old black female with a limited mental health history and evidence of addiction who presents with recent overuse of the emergency department presenting with extreme anxiety likely psychosis and hallucinations and inability to manage herself outside of the hospital. 1. Continue current medication. We will offer Zyprexa 5 mg p.o. twice daily 2. Continue every 15 minute checks for safety. 3. Encourage individual, group and milieu therapies. 4. Encourage sober living treatment after discharge at the highest level of care to which he is willing to commit. 5. Make sure there is a UDS gathered. Involuntary Hold Information 96 Hour Hold: 96 Hour Involuntary Admission: Yes 96 Hour Hold Ending Date: 12/31/21 96 Hour Hold Ending Time: 18:25 Attestations NPU Medical Necessity Statement*: Inpatient hospitalization is medically necessary and the clinically appropriate intervention at this time. We will monitor medication to make changes as indicated. Patient will be in the hospital for over two midnights. Likely length of stay 3 to 5 days. 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
[2021-12-26] MEDS: acetaminophen 325 mg Tablet 650 MG PO (13:33)
[2021-12-26] MEDS: OLANZapine 5 mg ODT PO (13:43)
[2021-12-26 14:00] VITALS: RESP 14
[2021-12-26 22:00] VITALS: RESP 17
[2021-12-27 06:00] VITALS: RESP 16
[2021-12-27] MEDS: paliperidone ER 6 mg Tablet PO (13:29)
[2021-12-27] MEDS: BuSPIRONE 10 mg Tablet PO ×2 (13:29→17:48)
[2021-12-27 14:00] VITALS: BP 107/70; PULSE 97; RESP 17; TEMP 36.7; O2SAT 97
--- NOTE | 2021-12-27 14:16 | W.PM.NPUPNS ---
Subjective NPU Subjective: Patient presents today for the first time sitting up and really answer questions though she spent the entirety of the interview facing away and looking down. She did seem to acknowledge that the anxiety and likely hallucinations are disturbing and she was open to a trial of medication. We discussed the risk benefits and alternatives of starting BuSpar 10 mg p.o. twice daily and Invega 6 mg p.o. every morning and she understood and agreed to proceed as is documented in this note. We discussed the UDS, which the cup was sitting on her night stand and she reported that she had not seen it and it was not there yesterday etc. We discussed importance of her getting the UDS so that we had a full picture of what we are dealing with. Mental Status Exam MSE Comments: This is a slender white female in hospital scrubs with limited grooming and absent eye contact. Notable tattooing on exposed skin no abnormal movements except for significant psychomotor retardation. Somewhat cooperative with exam in mild to moderate distress. Speech was limited but normal rate and decreased volume. Mood described as anxious, affect congruent and subdued. Thought process was linear and more organized. Thought content: Patient denied suicidal homicidal ideation, there were no delusions reported but clear paranoid and persecutory thinking was present, she did not endorse auditory or visual hallucinations but likely is experiencing perceptual disturbances. Attention and concentration were improving and memory was unreliable but none were formally tested. She is alert and oriented x person and place. Insight and judgment are impaired. Impulse control is limited versus impaired. Vitals/I&O/Wt Last Vital Signs Temp 98.1 F 12/27/21 14:00 Pulse 97 12/27/21 14:00 Resp 17 12/27/21 14:00 BP 107/70 12/27/21 14:00 Pulse Ox 97 12/27/21 14:00 O2 Del Method 12/27/21 14:00 Data NPU : 12/25/21 15:10 12/25/21 15:10 A&P Assessment and plan (1) Psychosis: Status: Acute (2) Suicidal ideation: Status: Acute (3) Auditory hallucination: Status: Acute (4) Anxiety: Status: Acute (5) Cluster B personality disorder: Status: Acute Plan This is a 41-year-old black female with a limited mental health history and evidence of addiction who presents with recent overuse of the emergency department presenting with extreme anxiety likely psychosis and hallucinations and inability to manage herself outside of the hospital. 1. Continue current medication. Start Invega 6 mg p.o. daily and BuSpar 10 mg p.o. twice daily. 2. Continue every 15 minute checks for safety. 3. Encourage individual, group and milieu therapies. 4. Encourage sober living treatment after discharge at the highest level of care to which he is willing to commit. 5. Make sure there is a UDS gathered. Involuntary Hold Information 96 Hour Hold: 96 Hour Involuntary Admission: Yes 96 Hour Hold Ending Date: 12/31/21 96 Hour Hold Ending Time: 18:25 Attestations NPU Medical Necessity Statement*: Inpatient hospitalization is medically necessary and the clinically appropriate intervention at this time. We will monitor medication to make changes as indicated. Likely length of stay 3 to 5 days. 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
--- NOTE | 2021-12-27 14:45 | PC.NURSE ---
NEW MEDS STARTED, BUSPAR 10MG BID AND INVEGA 6MG DAILY, PT GIVEN BOTH AT TIME OF ORDER FOR STARTING DOSE WITHOUT DIFF, NEW MEDICATION EDUCATION PROVIDED TO PT, PT VERB UNDERSTANDING
[2021-12-27] MEDS: nicotine 21 mg Patch 1 PATCH TRANSDERMA (16:08)
[2021-12-27 18:51] LABS: Amphetamines Screen Urine Positive (Negative); Barbiturates Screen Urine Negative (Negative); Benzodiazepines Screen Urine Positive (Negative); Cocaine Screen Urine Negative (Negative); Opiate Screen Urine Negative (Negative); PCP Screen Urine Negative (Negative); THC Screen Urine Positive (Negative)
[2021-12-27 20:16] VITALS: RESP 16
[2021-12-28 06:00] VITALS: BP 97/64; PULSE 86; RESP 18; TEMP 36.6; O2SAT 99
[2021-12-28] MEDS: acetaminophen 325 mg Tablet 650 MG PO (06:07)
[2021-12-28] MEDS: BuSPIRONE 10 mg Tablet PO ×2 (09:17→20:15)
[2021-12-28] MEDS: paliperidone ER 6 mg Tablet PO (09:17)
[2021-12-28] MEDS: nicotine 21 mg Patch 1 PATCH TRANSDERMA (10:17)
--- NOTE | 2021-12-28 10:52 | P.NPUPN_ITS ---
Subjective NPU Subjective: Patient presents today reporting that she is doing a little better. She reports that she is tolerating the medication without any current problematic symptoms. We briefly discussed that her UDS returned positive for cannabis, amphetamines and benzodiazepines although she has been given benzo diazepines since she is been hospitalized and her response was I had used methamphetamine since Wednesday. I expressed frustration at the fact that neither she nor her answered to the affirmative when I asked if there was any addiction or drug use and specifically if there have been any a mphetamine use and they answered no. She had no response. Mental Status Exam MSE Comments: This is a slender white female in hospital scrubs with limited grooming and absent eye contact. Notable tattooing on exposed skin no abnormal movements except for some mild psychomotor retardation. More cooperative with exam in mild distress. Speech was more spontaneous and normal rate and decreased volume. Mood described as a little better, affect congruent and less subdued. Thought process more organized. Thought content: Patient denied suicidal or homicidal ideation, there were no delusions reported and less paranoid and persecutory thinking was present, she did not endorse auditory or visual hallucinations. Attention and concentration were improving and memory was unreliable but none were formally tested. She is alert and oriented x person and place. Insight and judgment are limited. Impulse control is limited. Vitals/I&O/Wt Last Vital Signs Temp 97.9 F 12/28/21 06:00 Pulse 86 12/28/21 06:00 Resp 18 12/28/21 06:00 BP 97/64 12/28/21 06:00 Pulse Ox 99 12/28/21 06:00 O2 Del Method 12/27/21 14:00 Weight last 48 hrs Weight 54.885 kg Data NPU : 12/25/21 15:10 12/25/21 15:10 A&P Assessment and plan (1) Psychosis: Status: Acute (2) Suicidal ideation: Status: Acute (3) Auditory hallucination: Status: Acute (4) Anxiety: Status: Acute (5) Cluster B personality disorder: Status: Acute (6) Methamphetamine abuse: Status: Acute Plan This is a 41-year-old black female with a limited mental health history and evidence of addiction who presents with recent overuse of the emergency department presenting with extreme anxiety likely psychosis and hallucinations and inability to manage herself outside of the hospital. 1. Continue current medication. Start Invega 6 mg p.o. daily and BuSpar 10 mg p.o. twice daily. 2. Continue every 15 minute checks for safety. 3. Encourage individual, group and milieu therapies. 4. Encourage sober living treatment after discharge at the highest level of care to which he is willing to commit. Involuntary Hold Information 96 Hour Hold: 96 Hour Involuntary Admission: Yes 96 Hour Hold Ending Date: 12/31/21 96 Hour Hold Ending Time: 18:25 Attestations NPU Medical Necessity Statement*: Inpatient hospitalization is medically necessary and the clinically appropriate intervention at this time. We will monitor medication to make changes as indicated. Likely length of stay 2-4 days. 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
[2021-12-28] MEDS: ibuprofen 600 mg Tablet PO (11:27)
--- NOTE | 2021-12-28 12:30 | PC.NURSE ---
PT REQUESTING PRN PAIN MEDS FOR MID TO LOWER BACK PAIN, PT HAS RECEIVED APAP AND NEW ORDER FOR IBUPROFEN 600MG GIVEN. PT INSTRUCTED TO TAKE A HOT SHOWER AND DO STRETCHES, PT VERB UNDERSTANDING AND DID TAKE SHOWER AND DID EXERCISES IN ROOM
[2021-12-28 13:44] VITALS: BP 115/74; PULSE 95; RESP 17; TEMP 36.6; O2SAT 99
[2021-12-28] MEDS: lidocaine 2% viscous 15 mL UDC TOPICAL (18:03)
[2021-12-28] MEDS: alum-mag-hydroxide-sime 30 mL UDC PO (18:03)
[2021-12-28] MEDS: sucralfate 1 gm/10 mL Oral Liq UDC PO (18:03)
[2021-12-28] MEDS: metoclopramide oral liquid 5 mg/5 mL (ml) 10 MG PO ×2 (18:04→22:44)
[2021-12-28 22:00] VITALS: BP 123/83; PULSE 77; RESP 18; TEMP 36.7; O2SAT 100
[2021-12-28] MEDS: docusate sodium 100 mg Capsule PO (23:44)
[2021-12-28] MEDS: hyDROXYzine 25 mg Capsule 50 MG PO (23:58)
[2021-12-28] MEDS: trazodone 50 mg Tablet PO (23:59)
[2021-12-29 06:00] VITALS: BP 91/55; PULSE 96; RESP 16; TEMP 37; O2SAT 94
[2021-12-29] MEDS: paliperidone ER 6 mg Tablet PO (08:40)
[2021-12-29] MEDS: BuSPIRONE 10 mg Tablet PO ×2 (08:40→19:32)
[2021-12-29 14:00] VITALS: BP 106/69; PULSE 135; RESP 15; TEMP 36.9; O2SAT 97
--- NOTE | 2021-12-29 14:55 | P.NPUPN_ITS ---
Subjective NPU Subjective: Patient presents today finally alert and not having any GI complaints today. We discussed her presentation and she continues to be quite resistant to acknowledging the role methamphetamine played in her presentation trying to say that her family has seen the car with the people that she was i magining that were making her so distraught. She is working with treatment team on discharge planning and connection to resources. I continue to work to get her to identify that reason why she is here is methamphetamine induced. Mental Status Exam MSE Comments: This is a slender white female in hospital scrubs with improving grooming and eye contact. Notable tattooing on exposed skin no abnormal mov ements except for some lessening mild psychomotor retardation. Cooperative with exam in no acute distress. Speech was more spontaneous and normal rate and decreased volume. Mood described as better, affect congruent. Thought process more organized. Thought content: Patient denied suicidal or homicidal ideation, there were no delusions reported and no delusions he noted, she did not endorse auditory or visual hallucinations. Attention and concentration were improving and memory was unreliable but none were formally tested. She is alert and oriented x person and place. Insight and judgment are limited. Impulse control is limited. Vitals/I&O/Wt Last Vital Signs Temp 98.6 F 12/29/21 06:00 Pulse 96 12/29/21 06:00 Resp 16 12/29/21 06:00 BP 91/55 12/29/21 06:00 Pulse Ox 94 12/29/21 06:00 O2 Del Method 12/29/21 06:00 Weight last 48 hrs Weight 54.885 kg Data NPU : 12/25/21 15:10 12/25/21 15:10 A&P Assessment and plan (1) Psychosis: Status: Acute (2) Suicidal ideation: Status: Acute (3) Auditory hallucination: Status: Acute (4) Anxiety: Status: Acute (5) Cluster B personality disorder: Status: Acute (6) Methamphetamine abuse: Status: Acute Plan This is a 41-year-old black female with a limited mental health history and evidence of addiction who presents with recent overuse of the emergency department presenting with extreme anxiety likely psychosis and hallucinations and inability to manage herself outside of the hospital. 1. Continue current medication. Started Invega 6 mg p.o. daily and BuSpar 10 mg p.o. twice daily. 2. Continue every 15 minute checks for safety. 3. Encourage individual, group and milieu therapies. 4. Encourage sober living treatment after discharge at the highest level of care to which he is willing to commit. Involuntary Hold Information 96 Hour Hold: 96 Hour Involuntary Admission: Yes 96 Hour Hold Ending Date: 12/31/21 96 Hour Hold Ending Time: 18:25 Attestations NPU Medical Necessity Statement*: Inpatient hospitalization is medically necessary and the clinically appropriate intervention at this time. We will monitor medication to make changes as indicated. Likely length of stay 1-3 days. 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
[2021-12-29 21:15] VITALS: BP 104/68; PULSE 97; RESP 16; TEMP 36.6; O2SAT 98
[2021-12-30 06:27] VITALS: BP 109/73; PULSE 88; RESP 16; TEMP 36.6; O2SAT 98
[2021-12-30] MEDS: paliperidone ER 6 mg Tablet PO (08:53)
[2021-12-30] MEDS: BuSPIRONE 10 mg Tablet PO (08:53)
[2021-12-30] MEDS: ibuprofen 600 mg Tablet PO (10:16)
--- NOTE | 2021-12-30 10:18 | PC.NURSE ---
Patient with c/o lower back pain rated 7. Motrin 600 mg po given for this.
--- NOTE | 2021-12-30 10:30 | P.NPUDS_ITS ---
Diagnoses at Discharge Discharge Diagnosis (1) Psychosis: Status: Resolved (2) Suicidal ideation: Status: Resolved (3) Auditory hallucination: Status: Resolved (4) Anxiety: Status: Acute (5) Cluster B personality disorder: Status: Acute (6) Methamphetamine abuse: Status: Acute Reason for Visit Reason for Visit: psych eval Brief History: History of Present Illness Sheeba Cobian is a 41 year old female who presented to the emergency department with the following report: Chief complaint: Psychiatric Symptoms Stated complaint: psych eval Time Seen by Provider: 12/25/21 13:23 History of Present Illness:?? HPI: Patient is a 41-year-old female with no significant past medical history presenting to the emergency room for evaluation of anxiety and emotional distress.? Patient tells me for the last 3-month, patient she has been followed by a [employer] car with three people.? Patient does not know who they are but she thinks she has been followed. She has heard voices from this vehicle telling her I should . ? Patient reports emotional distress from this and patient's has tells me that this has been going on for the last few months.? Last month patient had suicide cutting her wrist due to the voices in her head reminding her about the vehicle with 3 women.? Patient reports feeling depressed.? Patient has not been seen by her behavioral health therapist recently. Today, patient is emotionally distraught tells me that she thinks somebody is following her.? Patient tells me that when she sees the white vehicle she has been taunted in the past.? Patient denies any SI or HI.? Patient's reports he and the vehicle once.? Patient denies hearing voices.? Patient denies any recent substance use. Onset: acute on chronic Duration: ongoing Location: home Severity: severe Associated symptoms: Deny chest pain, dyspnea, nausea, rash, palpitations or vomiting. She was admitted to the neuropsychiatric unit for definitive treatment of those issues on a 96-hour hold.? She presents today having been in the emergency department at least 10 times this year already and there are encounters from last year as well.? She presents reporting that she is struggling with someone following her.? She reports that the woman from third shift at the hospital.? She reports that she knows this person because her works third shift at the hospital and she must of seen her there.? Her confirmed that he does work third shift but he is not clear as to what 1 and she is speaking of.? She reports that she has a picture of the person or least part of her body but is on her daughter's phone and had an elaborate story of how she got that picture.? She has not reported that this person is harassing her specifically but just that she looks up and she is everywhere that the patient is.? She also reported seeing some white car driving around that she could not identify who it was but also stated that this person was also followed her.? She could give no reason why a person at the hospital whom they have no knowledge of would be following her.? Expressed being very upset because her mother and other people are telling her that its not real.? She endorsed that her saw this white car.? He endorsed that that was true but he saw his car 1 time and it was just driving slowly on the road the 1 time he saw it.? She is convinced that these facts she presents are true and that she does need something for anxiety to help her deal with these people/stalkers.? When she came down to the unit last night she was unable to manage herself reasonably on the unit and did require as needed medication to assist in her transition to the unit.? She endorses that she needs antianxiety medication we are discussing the fact that her presentation is suggestive of a need for antipsychotic medication.? We discussed the risk- benefit alternatives of a trial of Zyprexa and she understood and agreed to consider trying the medication today. Psychiatric history: She denied any significant inpatient or outpatient services or history of med management treatment. Substance use history: She denied any significant drug and alcohol history however her last visit there was a drug screen was in February of 2019 and it was positive for cannabis.? Her UDS has not returned. Hospital Course Hospital Course She slowly acclimated to the individual, group and milieu therapies provided. She had been placed on a 96-hour hold prior to admission. She was initially resistant to medication and in denial of any behaviors that could have contributed to her presentation. However we eventually got the UDS it was clear that methamphetamine was an issue and she had not revealed this prior to the laboratory finding. She was very resistant to acknowledging the addiction issue and ambivalent about pursuing treatment. She had marked improvement during the hospitalization. We started her on BuSpar and Invega as he had significant improvement. She was able to contract for safety outside of the hospital prior to discharge. During the hospitalization, patient had routine laboratory studies which were within normal limits except for few outliers. Additionally there was a general medical evaluation which was also within normal limits and revealed no new acute processes. Discharge Summary: At the time of discharge, she denied psychosis or lethality. Mood and anxiety were well managed. Patient endorsed a plan to avoid all drugs of abuse and follow-up with the aftercare recommendations of the treatment team. Patient was evaluated and deemed to be absent credible lethality, and had achieved the maximum benefit from an inpatient hospitalization, so was discharged. Involuntary Hold Information 96 Hour Hold: 96 Hour Involuntary Admission: Yes 96 Hour Hold Ending Date: 12/31/21 96 Hour Hold Ending Time: 18:25 Mental Status Exam MSE Comments: This is a slender white female in hospital scrubs with improving grooming and eye contact. Notable tattooing on exposed skin no abnormal movements. Cooperative with exam in no acute distress. Speech was more spontaneous and normal rate and volume. Mood described as better, affect congruent. Thought process more organized. Thought content: Patient denied suicidal or homicidal ideation, there were no delusions reported or noted, she did not endorse auditory or visual hallucinations. Attention and concentration were improving and memory was more reliable but none were formally tested. She is alert and oriented x 3. Insight and judgment are limited, but improving. Impulse control is limited. Discharge Data Studies Completed and Pending: Laboratory Results WBC 6.6 10^3/uL (4.0- 10.0) 12/25/21 15:10 RBC 3.99 10^6/uL (4.1 -5.3) L 12/25/21 15:10 Hgb 9.6 g/dL (11.5-15 .3) L 12/25/21 15:10 Hct 32.2 % (37.0-47.0 ) L 12/25/21 15:10 MCV 80.7 fl (81-99) L 12/25/21 15:10 MCH 24.1 pg (28.0-34. 0) L 12/25/21 15:10 MCHC 29.8 g/dL (30.0-3 6.0) L 12/25/21 15:10 RDW 16.2 % (12.1-15.1 ) H 12/25/21 15:10 Plt Count 395 10^3/cmm (130 -400) 12/25/21 15:10 MPV 9.0 fL (7.4-10.4) 12/25/21 15:10 Neut % (Auto) 65.9 % 12/25/21 15:10 Lymph % (Auto) 25.2 % 12/25/21 15:10 Charlton % (Auto) 5.7 % 12/25/21 15:10 Eos % (Auto) 2.4 % 12/25/21 15:10 Baso % (Auto) 0.5 % 12/25/21 15:10 Neut # (Auto) 4.37 10^3/uL (1.8 -7.7) 12/25/21 15:10 Lymph # (Auto) 1.7 10^3/uL (0.8- 4.8) 12/25/21 15:10 Charlton # (Auto) 0.4 10^3/uL (0.2- 0.9) 12/25/21 15:10 Eos # (Auto) 0.2 10^3/uL (0.0- 0.8) 12/25/21 15:10 Baso # (Auto) 0.0 10^3/uL (0.0- 0.1) 12/25/21 15:10 Nucleated RBC % (a uto) 0 % 12/25/21 15:10 Nucleated RBCs # 0.0 /100WBC 12/25/21 15:10 Sodium 138 mmol/L (136-1 45) 12/25/21 15:10 Potassium 3.6 mmol/L (3.5-5 .1) 12/25/21 15:10 Chloride 102 mmol/L (98-10 7) 12/25/21 15:10 Carbon Dioxide 25 mmol/L (22-29) 12/25/21 15:10 Anion Gap 14.6 (5-19) 12/25/21 15:10 BUN 16 mg/dL (6-20) 12/25/21 15:10 Creatinine 0.6 mg/dL (0.5-0. 9) 12/25/21 15:10 GFR Calculation 111.3 mL/min (90- 130) 12/25/21 15:10 Glucose 74 mg/dL (65-115) 12/25/21 15:10 Calculated Osmolal ity 286 mOsm/kg (285- 295) 12/25/21 15:10 Calcium 9.0 mg/dL (8.5-10 .5) 12/25/21 15:10 Total Bilirubin 0.4 mg/dL (0.15-1 .2) 12/25/21 15:10 AST 17 U/L (0-32) 12/25/21 15:10 ALT 14 U/L (0-33) 12/25/21 15:10 Alkaline Phosphata se 86 U/L (35-105) 12/25/21 15:10 Total Protein 6.7 g/dL (6.6-8.7 ) 12/25/21 15:10 Albumin 4.1 g/dL (3.5-5.2 ) 12/25/21 15:10 Globulin 2.6 g/dL (1.3-4.6 ) 12/25/21 15:10 Lipase 37 U/L (13-60) 12/25/21 15:10 TSH 0.51 uIU/mL (0.27 -4.20) 12/25/21 15:10 Free T4 1.32 ng/dL (0.82- 1.77) 12/25/21 15:10 Salicylates < 0.3 mg/dL (3-10 ) L 12/25/21 15:10 Urine Opiates Scre en Negative ng/mL (N egative) 12/27/21 16:07 Acetaminophen < 5.0 ug/mL (10-3 0) L 12/25/21 15:10 Ur Barbiturates Sc reen Negative ng/mL (N egative) 12/27/21 16:07 Ur Phencyclidine S crn Negative ng/mL (N egative) 12/27/21 16:07 Ur Amphetamines Sc reen Positive ng/mL (N egative) H 12/27/21 16:07 U Benzodiazepines Scrn Positive ng/mL (N egative) H 12/27/21 16:07 Urine Cocaine Scre en Negative ng/mL (N egative) 12/27/21 16:07 U Marijuana (THC) Screen Positive ng/mL (N egative) H 12/27/21 16:07 Vitals: Last Vital Signs Temp 97.8 F 12/30/21 06:27 Pulse 88 12/30/21 06:27 Resp 16 12/30/21 06:27 BP 109/73 12/30/21 06:27 Pulse Ox 98 12/30/21 06:27 O2 Del Method 12/30/21 06:27 Discharge Plan Discharge Patient Disposition: Home Condition: Stable Prescriptions: New buspirone 10 mg Tablet 10 mg PO 0900,2100 30 Days Qty: 60 1RF paliperidone 6 mg Tablet Extended Release 24hr 6 mg PO DAILY 30 Days Qty: 30 1RF Discharge Orders: Discharge Order (Routine); Ordered 12/30/21 Ordered By: Nicolás Stock Referrals: [facility] [Outside] - 12/31/21 12:30 pm (Initial appointment) Julián Yañez MD [Primary Care Provider] - Discharge Diet: Regular Discharge Activity: Resume usual activity Patient Instructions: Buspirone (By mouth), Paliperidone (By mouth), Methamp hetamine Abuse, Borderline Personality Disorder (DC), Suicide Prevention (DC), Opioid Safety Discharge Attestations NPU Time Spent in Discharge Care*: less than 30 min Specific Discharge Activities: Specific discharge activities: educating patient, discussing with geriatric case manager/social workers/dc planners, documenting/other paperwork and evaluating patient/reviewing data Coding Level of Care Code Acute Chg FW DC note Diagnoses Psychosis F29 Suicidal ideation R45.851 Auditory hallucination R44.0 Anxiety F41.9 Cluster B personality disorder F60.89 Methamphetamine abuse F15.10
[2021-12-30] MEDS: OLANZapine 5 mg ODT PO (13:45)
--- NOTE | 2021-12-30 13:47 | PC.NURSE ---
patient at nurses station with c/o increased anxiety. Zydis 5mg sl given for this.
[2021-12-30 13:57] VITALS: BP 109/73; PULSE 88; RESP 16; TEMP 36.6; O2SAT 98
== END 2021-12-30 15:00 | disposition home or self-care (01) | DRG 885 ==
LOC: ER 16:05 → NP 12-26 05:45
PROVIDERS: Admitting Provider Psychiatry & Neurology Psychiatry; Emergency Provider Emergency Medicine; PCP Family Medicine; Visit Provider Psychiatry & Neurology Psychiatry
DX: F29 Unspecified psychosis not due to a substance or known physiological condition (principal); R45.851 Suicidal ideations; F41.9 Anxiety disorder, unspecified; F17.200 Nicotine dependence, unspecified, uncomplicated; F60.89 Other specific personality disorders; F15.10 Other stimulant abuse, uncomplicated
CPT/HCPCS: 80053; 80306; 80307; 83690; 84439; 84443; 85025; 96372; 97150; 97165; 99285; J1630; J2060

== ENCOUNTER 2022-01-11 22:17 | Emergency (ER) | payer BC, MEDICAID, SELFPAY ==
[2022-01-11 22:35] VITALS: BP 131/81; PULSE 100; RESP 17; TEMP 36.9; O2SAT 99; BMI 22.8
[2022-01-11 22:55] VITALS: RESP 17; O2SAT 100
--- NOTE | 2022-01-11 23:40 | XRR_ITS ---
PROCEDURE INFORMATION: Exam: XR Left Wrist Exam date and time: 01/11/2022 11:45 PM Age: 41 years old Clinical indication: Injury or trauma; Fall; Blunt trauma (contusions or hematomas); Wrist; Left TECHNIQUE: Imaging protocol: Radiologic exam of the Left wrist. Views: 3 or more views. COMPARISON: No relevant prior studies available. FINDINGS: Bones/joints: Normal. Soft tissues: Normal. XR/XR wrist LT min 3V* [id number] IMPRESSION: No acute findings.
--- NOTE | 2022-01-12 00:08 | ED_ITS ---
HPI - Extremity Problem General: Chief complaint: Extremity Injury, Upper Stated complaint: fall, left arm pain Time Seen by Provider: 01/11/22 22:45 History of Present Illness: 41-year-old female patient presents to the emergency department complaining of left wrist pain. Patient states she tripped and landed on her wrist a few days ago and the pain is continued. Patient denies any numbness or tingling. Patient denies any other injury or trauma. Associated symptoms: Deny chest pain, fever(s) or rash Review of Systems Const: Denies: fever(s), chills, body aches, change in appetite, change in weight, fatigue, malaise or diaphoresis Eyes: Denies: change in vision, blurry vision, blind spots, photophobia, eye discomfort, eye discharge, eye redness, floaters or seeing flashes ENMT: Denies: throat pain, uvular edema, enlarged tonsils, odynophagia, hoarseness, mouth pain, swelling of lips/tongue, oral sores, bleeding gums, dental pain, dry mouth, ear or mastoid pain, ear discharge, change in hearing, tinnitus, disequilibrium, nasal discharge, nasal congestion, post nasal drip or sinus pain Card: Denies: chest pain, palpitations, irregular heart rhythm, edema, swelling of feet/ankles, lightheadedness, syncope, pre-syncope, dyspnea on exertion, orthopnea, leg pain with exertion or acrocyanosis Resp: Denies: dyspnea, productive cough, non-productive cough, wheezing, stridor, pain on inspiration, change in phlegm color, hemoptysis or chest congestion GI: Denies: abdominal pain, nausea, vomiting, hematemesis, dysphagia, diarrhea, constipation, GI cramping, change in bowel habits or rectal pain : Denies: flank pain, difficulty voiding, dysuria, urinary frequency, urinary urgency, urinary hesitancy or hematuria Musc: Denies: neck pain, back pain, extremity swelling, joint pain, joint swelling, joint redness, joint warmth or deformity Skin/Breast: Denies: rash, pruritus, erythema, sores, new lesions, changes in skin color or dry skin Neuro: Denies: headache(s), numbness in extremities, weakness in extremities, sensory changes, lack of coordination, difficulty walking, frequent falls, dizziness, vertigo, confusion, behavioral changes, Slurred speech present, difficulty communicating thoughts or seizure-like activity Psych: Denies: anxiety, depression, suicidal ideation or homicidal ideation Endo: Denies: polyuria, polydipsia, tired all the time, cold intolerance, excessive sweating, flushing, hot flashes or heat intolerance Tab/Lymph: Denies: easy bruising, easy bleeding, petechiae, purpura, enlarged lymph nodes or tender lymph nodes All/Imm: Denies: urticaria, throat swelling, tongue swelling, facial swelling, acute wheezing or itchy eyes PFSH ED PFSH: Medical History No pertinent family history No pertinent past medical history Social History Smoking and tobacco status: current every day smoker Female Reproductive History: Date of last menstrual period: 12/13/21 Physical Exam Const: COMMON NORMALS: no acute distress, average body habitus, patient oriented x3, no limitations, healthy appearing, alert and well nourished HENMT: THROAT: no uvular edema Back/Pelvis: OTHER: Patient has tenderness to the lateral aspect of the left wrist. There is no obvious deformity or edema noted. Patient is neurovascular intact distally. Neuro: COMMON NORMALS: patient oriented x3 SENSORIUM/ORIENTATION: Yes alert Course Vital Signs: Vital signs: Vital Signs Temperature 98.5 F 01/11/22 22:35 Pulse Rate 100 01/11/22 22:35 Respiratory Rate 17 01/11/22 22:55 Blood Pressure 131/81 01/11/22 22:35 Pulse Oximetry 100 01/11/22 22:55 Oxygen Delivery Me thod 01/11/22 22:35 MDM - Extremity (Nontraumatic) Medical Decision Making Patient is well-appearing nontoxic and in no acute distress. 41-year-old female patient presents to the emergency department complaining of left wrist pain. Patient states she tripped and landed on her wrist a few days ago and the pain is continued. Patient denies any numbness or tingling. Patient denies any other injury or trauma. X-ray is negative for any acute fracture or dislocation. Patient is la nena rovascular intact distally. I discussed with patient return precautions as well as home care. Patient is medically cleared and appropriate for discharge Lab Data Radiology Impressions Wrist X-Ray 01/11/22 23:40 IMPRESSION: No acute findings. Discharge Plan Discharge Condition: Stable Prescriptions: No Action buspirone 10 mg Tablet 10 mg PO 0900,2100 30 Days Qty: 60 1RF paliperidone 6 mg Tablet Extended Release 24hr 6 mg PO DAILY 30 Days Qty: 30 1RF Referrals: Julián Yañez MD [Primary Care Provider] - Coding Level of Care Code ED Certified Recreational Therapist for Yung Melendez
[2022-01-12 00:32] VITALS: RESP 16; O2SAT 100
== END 2022-01-12 00:33 | disposition home or self-care (01) ==
PROVIDERS: Emergency Provider Registered Nurse; PCP Family Medicine
DX: M25.532 Pain in left wrist (principal); F17.210 Nicotine dependence, cigarettes, uncomplicated
CPT/HCPCS: 73110; 99283

== ENCOUNTER 2022-01-15 17:54 | Emergency (ER) | payer BC, MEDICAID, SELFPAY ==
[2022-01-15 17:56] VITALS: BP 103/64; PULSE 102; RESP 16; TEMP 36.6; O2SAT 98; BMI 22.8
--- NOTE | 2022-01-15 18:09 | W.ED.ABDPA2 ---
HPI - Abdominal Pain General: Chief Complaint: Abdominal Pain Stated Complaint: ABD Pain Time Seen by Provider: 01/15/22 18:08 History of Present Illness: Ms. Cobian is a 41-year-old lady with history of abdominal pain and gastritis presenting to the emergency department due to abdominal pain. Onset of symptoms approximately 1 hour prior to arrival after eating though no choking event noted. She since has had nausea with 1 episode of vomiting as well as burning epigastric pain which feels similar to prior episodes. Denies blood in stool or emesis. Intensity symptoms moderate to severe. She tried Tums at home without significant relief. No other specific changes in health, exacerbating, or alleviating factors identified. Onset (ago): minute(s) Pain Consistency: constant Location: Epigastric Quality: burning Associated Symptoms: Reports nausea; Denies coffee ground emesis, hematochezia, hematemesis and melena Related Data: Date of Last Menstrual Period: 12/20/21 Review of Systems General: Reports: 10 or more systems reviewed and unremarkable except in HPI and below GI: Reports: nausea; Denies: hematemesis, coffee ground emesis, hematochezia or melena PFS ED PFSH: Medical History No pertinent family history No pertinent past medical history Social History Smoking and tobacco status: current every day smoker Female Reproductive History: Date of last menstrual period: 12/20/21 Physical Exam Const: COMMON NORMALS: alert GENERAL APPEARANCE: cooperative and well developed HENMT: COMMON NORMALS: normocephalic and atraumatic HEAD & SCALP: normocephalic and atraumatic Eye: COMMON NORMALS: conjunctivae normal CONJUNCTIVA: Yes conjunctivae normal SCLERA: sclerae normal Neck/C-Spine: COMMON NORMALS: supple GENERAL: Yes trachea midline Resp: COMMON NORMALS: normal respiratory effort and clear to auscultation bilaterally EFFORT & INSPECTION: Yes able to speak in complete sentences AUSCULTATION: clear to auscultation bilaterally Cardio: COMMON NORMALS: regular rhythm RATE: tachycardic RHYTHM: regular rhythm GI: COMMON NORMALS: Soft to palpation PALPATION: Yes Soft to palpation, Yes Tenderness to palpation present (GI), No Guarding due to palpation present (GI) and No Rigid due to palpation Extremity: GENERAL: Yes normal exam except as noted and No edema Neuro: COMMON NORMALS: moves all extremities SENSORIUM/ORIENTATION: Yes alert and No Orientation impaired Psych: COMMON NORMALS: mental status grossly normal and Normal thought process present THOUGHT PROCESS: Normal thought process present Course ED course: - Patient was seen and evaluated by me at bedside - Patient placed on cardiac monitors, IV access obtained - Initial evaluation notable for exam as above - Labspersonally interpreted by me - Fluids, analgesia, and antiemetic given - Labs notable for no leukocytosis, microcytic anemia. Metabolic panel with minimal hyponatremia and hypokalemia, potassium replenishment ordered. No UTI. - Upon serial reexamination after treatment the patient was improved and able to tolerate p.o. intake - Based on patient history, evaluation, and testing as interpreted the most likely cause of the patient's condition is epigastric pain of uncertain etiology - The results of ED evaluation were discussed with the patient including prescriptions and/or symptomatic cares (if applicable) including appropriate and responsible use, followup plan, and return precautions. The patient verbalized understanding and felt safe for discharge. - Patient discharged in satisfactory condition. Note: Click bubbles or prepopulated haywood in note writing are used for assistance with data collection and billing and are inherently more limited than narrative and other text portions of this note. Please use narrative for additional clinical history and defer to narrative/free test for any case of contradictory information. If information appears in only free text or click bubble it should be considered present or absent as reported. Please contact note journalists and other writers for clarifications of clinical information or contradictory information. MDM is a brief summary, contradictory or erroneous seeming information should be clarified and full note should be reviewed. Vital Signs: Vital signs: Vital Signs Temperature 97.9 F 01/15/22 17:56 Pulse Rate 85 01/15/22 20:58 Respiratory Rate 16 01/15/22 20:58 Blood Pressure 96/56 01/15/22 20:58 Pulse Oximetry 97 01/15/22 20:58 Oxygen Delivery Me thod 01/15/22 20:58 MDM - Abdominal Pain Medical Decision Making 41-year-old lady presenting with epigastric pain. No clear etiology identified on ED evaluation. Patient prefers no imaging. I feel this is reasonable based on other evaluation. Satisfactory for outpatient management with return precautions given. Medical Records I reviewed the patient's medical records. Lab Data I reviewed the patient's lab results. : 01/15/22 18:31 01/15/22 18:30 Labs/Radiology: Laboratory Results WBC 8.2 10^3/uL (4.0-10.0) 01/15/22 18: RBC 3.57 10^6/uL (4.1-5.3) L 01/15/22 18: Hgb 8.4 g/dL (11.5-15.3) L 01/15/22 18: Hct 28.1 % (37.0-47.0) L 01/15/22 18: MCV 78.7 fl (81-99) L 01/15/22 18: MCH 23.5 pg (28.0-34.0) L 01/15/22 18: MCHC 29.9 g/dL (30.0-36.0) L 01/15/22 18: RDW 16.9 % (12.1-15.1) H 01/15/22 18: Plt Count 376 10^3/cmm (130-400) 01/15/22 18: MPV 9.1 fL (7.4-10.4) 01/15/22 18: Neut % (Auto) 59.0 % 01/15/22 18: Lymph % (Auto) 29.1 % 01/15/22 18: Nuckolls % (Auto) 8.4 % 01/15/22 18: Eos % (Auto) 2.6 % 01/15/22 18: Baso % (Auto) 0.5 % 01/15/22 18: Neut # (Auto) 4.84 10^3/uL (1.8-7.7) 01/15/22 18: Lymph # (Auto) 2.4 10^3/uL (0.8-4.8) 01/15/22 18: Nuckolls # (Auto) 0.7 10^3/uL (0.2-0.9) 01/15/22 18: Eos # (Auto) 0.2 10^3/uL (0.0-0.8) 01/15/22 18: Baso # (Auto) 0.0 10^3/uL (0.0-0.1) 01/15/22 18:31 Nucleated RBC % (auto) 0 % 01/15/22 18:31 Nucleated RBCs # 0.0 /100WBC 01/15/22 18:31 Sodium 135 mmol/L (136-145) L 01/15/22 18:30 Potassium 3.3 mmol/L (3.5-5.1) L 01/15/22 18:30 Chloride 98 mmol/L (98-107) 01/15/22 18:30 Carbon Dioxide 28 mmol/L (22-29) 01/15/22 18:30 Anion Gap 12.3 (5-19) 01/15/22 18:30 BUN 11 mg/dL (6-20) 01/15/22 18:30 Creatinine 0.5 mg/dL (0.5-0.9) 01/15/22 18:30 GFR Calculation 137.4 mL/min (90-130) H 01/15/22 18:30 Glucose 99 mg/dL (65-115) 01/15/22 18:30 Calculated Osmolality 279 mOsm/kg (285-295) L 01/15/22 18:30 Calcium 8.5 mg/dL (8.5-10.5) 01/15/22 18:30 Total Bilirubin 0.2 mg/dL (0.15-1.2) 01/15/22 18:30 AST 21 U/L (0-32) 01/15/22 18:30 ALT 30 U/L (0-33) 01/15/22 18:30 Alkaline Phosphatase 123 U/L (35-105) H 01/15/22 18:30 Total Protein 6.1 g/dL (6.6-8.7) L 01/15/22 18:30 Albumin 3.6 g/dL (3.5-5.2) 01/15/22 18:30 Globulin 2.5 g/dL (1.3-4.6) 01/15/22 18:30 Lipase 51 U/L (13-60) 01/15/22 18:30 Discharge Plan Discharge Patient Disposition: Home Clinical Impression: Epigastric abdominal pain, Microcytic anemia Condition: Stable Prescriptions: New ondansetron 4 mg tablet,disintegrating 4 mg PO Q8H PRN (Reason: nausea and vomiting) Qty: 15 0RF No Action buspirone 10 mg Tablet 10 mg PO 0900,2100 30 Days Qty: 60 1RF paliperidone 6 mg Tablet Extended Release 24hr 6 mg PO DAILY 30 Days Qty: 30 1RF lidocaine 5 % adhesive patch,medicated 1 patch topical DAILY PRN (Reason: pain) 30 Days Qty: 30 0RF Rx Instructions: leave on most painful area for up to 12 hrs Discharge Orders: Discharge ED (Routine); Ordered 01/15/22 Ordered By: Yosef Lamas Referrals: Julián Yañez MD [Primary Care Provider] - Discharge Diet: Advance as tolerated and Clear Liquid Discharge Activity: Increase activity as tolerated Patient Instructions: Diet for Stomach Ulcers and Gastritis (ED), Epigastric Pain (ED) Activity Restrictions/Additional Instructions: Thank you for visiting the emergency department. You are seen and evaluated for epigastric pain. The exact cause of your symptoms is unclear but does not appear to need hospitalization at this time. I recommend follow-up with a primary care provider and I will message case management for general surgery follow-up for consideration of EGD. Return to the emergency department for worsening symptoms or anything else that you are concerned about and feel needs emergency department evaluation. Coding Level of Care Code ED Wellness Specialist for Yung Fwd Exam Comprehensive
[2022-01-15] MEDS: ondansetron 2 mg/ML SDV 2 mL 4 MG IVP (18:39)
[2022-01-15] MEDS: pantoprazole 40 mg SDV IVP (18:40)
[2022-01-15] MEDS: lidocaine 2% viscous 15 ML, aluminum-mag hydrox-simethicon 30 ML, sucralfate oral liq 1 GM PO (18:43)
[2022-01-15] MEDS: lactated ringers 1,000 ML 999 ML IV (18:43)
[2022-01-15 18:45] LABS: Basophils % 0.5 %; Eosinophils # 0.2 10^3/uL (0.0-0.8); Eosinophils % 2.6 %; Hematocrit 28.1 % (37.0-47.0); Hemoglobin 8.4 g/dL (11.5-15.3); Lymphocytes # 2.4 10^3/uL (0.8-4.8); Lymphocytes % 29.1 %; Mean Corpuscular HGB Conc 29.9 g/dL (30.0-36.0); Mean Corpuscular Hemoglobin 23.5 pg (28.0-34.0); Mean Corpuscular Volume 78.7 fl (81-99); Mean Platelet Volume 9.1 fL (7.4-10.4); Monocytes # 0.7 10^3/uL (0.2-0.9); Monocytes % 8.4 %; Neutrophils # 4.84 10^3/uL (1.8-7.7); Nucleated Red Blood Cells % 0 %; Platelet Count 376 10^3/cmm (130-400); Red Blood Count 3.57 10^6/uL (4.1-5.3); Red Cell Distribution Width 16.9 % (12.1-15.1); White Blood Count 8.2 10^3/uL (4.0-10.0)
[2022-01-15 18:53] VITALS: BP 98/61; PULSE 98; RESP 16; O2SAT 98
--- NOTE | 2022-01-15 18:59 | PC.NURSE ---
Report called to HILTON Yeung
[2022-01-15 19:50] LABS: Alanine Aminotransferase 30 U/L (0-33); Albumin Level 3.6 g/dL (3.5-5.2); Alkaline Phosphatase 123 U/L (35-105); Anion Gap 12.3 (5-19); Aspartate Amino Transferase 21 U/L (0-32); Blood Urea Nitrogen 11 mg/dL (6-20); Calcium 8.5 mg/dL (8.5-10.5); Carbon Dioxide 28 mmol/L (22-29); Chloride 98 mmol/L (98-107); Globulin 2.5 g/dL (1.3-4.6); Glomerular Filtration Rate 137.4 mL/min (90-130); Glucose 99 mg/dL (65-115); Lipase 51 U/L (13-60); Osmolality Calculated 279 mOsm/kg (285-295); Potassium 3.3 mmol/L (3.5-5.1); Sodium 135 mmol/L (136-145); Total Bilirubin 0.2 mg/dL (0.15-1.2); Total Protein 6.1 g/dL (6.6-8.7)
[2022-01-15] MEDS: potassium chloride ER 20 mEq Tablet 40 MEQ PO (20:38)
--- NOTE | 2022-01-15 20:55 | PC.NURSE ---
2034- patient given ice water for PO challenge. patient with no dififculites noted while in room consuming water.
[2022-01-15 20:58] VITALS: BP 96/56; PULSE 85; RESP 16; O2SAT 97
--- NOTE | 2022-01-16 13:42 | DCPLANNER ---
Addendum entered by Geovanna Redd 01/20/22 09:14: staffing branch manager received the following messages from general surgery regarding follow up appointment: unable to go thru 01/19 On Wed 2:50p Jan 16, 2022 Jessie Thacker (Covering For: [employer]) Wrote To: [employer] call unable to go thru 01/16 staffing branch manager called phone number [phone] - recording stated that the wireless customer is not accepting calls at this time. Original Note: staffing branch manager had message to schedule a follow up appointment for patient with general surgery. staffing branch manager sent patients information to the front office staff at general surgery. Patients information will be printed and reviewed. Clinic will call patient with appointment information.
== END 2022-01-15 21:09 | disposition home or self-care (01) ==
PROVIDERS: Emergency Provider Emergency Medicine; PCP Family Medicine
DX: R10.13 Epigastric pain (principal); D50.9 Iron deficiency anemia, unspecified; F17.210 Nicotine dependence, cigarettes, uncomplicated
CPT/HCPCS: 80053; 83690; 85025; 96361; 96374; 96375; 99284; C9113; J2405

== ENCOUNTER 2022-01-17 10:09 | Emergency (ER) | payer BC, MEDICAID, SELFPAY ==
--- NOTE | 2022-01-17 10:19 | XRR_ITS ---
PROCEDURE INFORMATION: Exam: XR Lumbosacral Spine Exam date and time: 01/17/2022 11:15 AM Age: 41 years old Clinical indication: Low back pain TECHNIQUE: Imaging protocol: Radiologic exam of the lumbosacral spine. Views: 2 or 3 views. COMPARISON: CR (PELVIS, ) 01/02/2021 12:39 AM FINDINGS: Bones/joints: No acute osseous pathology. Anatomic alignment. Marginal osteophytes. Soft tissues: Unremarkable. Gastrointestinal tract: Prominent stool. XR/XR lumbar spine 2-3V* [id number] IMPRESSION: No acute osseous pathology.
[2022-01-17 10:30] VITALS: BP 108/72; PULSE 99; RESP 18; TEMP 36.6; O2SAT 99; BMI 24.1
[2022-01-17 11:00] LABS: Add Urine Microscopic? NO; Charge for UA Resulting for Rev
--- NOTE | 2022-01-17 11:00 | ED_ITS ---
HPI - Back Pain/Injury General: Chief Complaint: Back Pain/Injury Stated Complaint: low back pain Time Seen by Provider: 01/17/22 10:19 PFSH ED PFSH: Medical History No pertinent family history No pertinent past medical history Social History Smoking and tobacco status: current every day smoker Female Reproductive History: Date of last menstrual period: 12/20/21 Course Vital Signs: Vital signs: Vital Signs Temperature 97.8 F 01/17/22 10:30 Pulse Rate 99 01/17/22 10:30 Respiratory Rate 18 01/17/22 10:30 Blood Pressure 108/72 01/17/22 10:30 Pulse Oximetry 99 01/17/22 10:30 Oxygen Delivery Me thod 01/17/22 10:30 Discharge Plan Discharge Condition: Stable Prescriptions: No Action buspirone 10 mg Tablet 10 mg PO 0900,2100 30 Days Qty: 60 1RF paliperidone 6 mg Tablet Extended Release 24hr 6 mg PO DAILY 30 Days Qty: 30 1RF ondansetron 4 mg tablet,disintegrating 4 mg PO Q8H PRN (Reason: nausea and vomiting) Qty: 15 0RF Protonix 40 mg tablet,delayed release (DR/EC) 40 mg PO BID 14 Days Qty: 28 0RF Referrals: Julián Yañez MD [Primary Care Provider] - Coding Level of Care Code ED Home Health Clinician for Yung Melendez
--- NOTE | 2022-01-17 11:00 | W.ED.GENADLT ---
HPI - General Adult General: Chief complaint: Back Pain/Injury Stated complaint: low back pain Time Seen by Provider: 01/17/22 10:19 History of Present Illness: Patient is a 41-year-old female with a history of anxiety, back pain who presents the emergency room for evaluation of right-sided back pain. Patient has been for the last 3 months has had worsening right-sided back pain with radiating pain down the leg. Patient denies any bowel or bladder problem. Patient denies any history IV drug use weakness in the legs or numbness in the legs. Patient denies any history of diabetes, prior back infection or any recent back surgery or trauma. Onset: chronic x 3 months Duration:ongoing Location:home Severity:moderate Associated symptoms: Deny chest pain, dyspnea, nausea, rash, palpitations or vomiting Review of Systems Const: Denies: fever(s) or chills Eyes: Denies: change in vision ENMT: Denies: mouth pain Card: Denies: chest pain or palpitations Resp: Denies: dyspnea or non-productive cough GI: Denies: abdominal pain, nausea, vomiting or diarrhea : Denies: dysuria Musc: Reports: back pain (+R sided back pain); Denies: extremity pain Skin/Breast: Denies: rash or new lesions Neuro: Denies: weakness in extremities Psych: Reports: other (Normal mood) Tab/Lymph: Denies: easy bruising PFS ED PFSH: Medical History No pertinent family history No pertinent past medical history Social History Smoking and tobacco status: current every day smoker Female Reproductive History: Date of last menstrual period: 12/20/21 Physical Exam Const: COMMON NORMALS: alert HENMT: COMMON NORMALS: atraumatic HEAD & SCALP: atraumatic MOUTH: moist mucous membranes not abnormal Eye: COMMON NORMALS: EOMs intact bilaterally and conjunctivae normal CONJUNCTIVA: Yes conjunctivae normal Neck/C-Spine: COMMON NORMALS: full ROM and supple Resp: COMMON NORMALS: normal respiratory effort and clear to auscultation bilaterally AUSCULTATION: clear to auscultation bilaterally Cardio: COMMON NORMALS: regular rate RATE: regular rate GI: COMMON NORMALS: Soft to palpation and non-tender PALPATION: Yes Soft to palpation Back/Pelvis: OTHER: +R paraspinal lumbar tenderness to palpation Extremity: COMMON NORMALS: full ROM OTHER: 5/5 strength in all extremities sensations in the lower extremities intact Neuro: SENSORIUM/ORIENTATION: Yes alert MOTOR EXAM: No Abnormal motor strength present and Other motor observations present (no focal motor deficits) Psych: COMMON NORMALS: speech normal SPEECH: Yes normal speech MOOD & AFFECT: Yes euthymic mood Course Vital Signs: Vital signs: Vital Signs Temperature 97.8 F 01/17/22 10:30 Pulse Rate 99 01/17/22 10:30 Respiratory Rate 18 01/17/22 10:30 Blood Pressure 108/72 01/17/22 10:30 Pulse Oximetry 99 01/17/22 10:30 Oxygen Delivery Me thod 01/17/22 10:30 MDM - General Adult Medical Decision Making 41-year-old female with a history of chronic back pain and anxiety presenting to the emergency room with worsening back pain for the last 3 months radiating down the right leg. On exam, patient has no midline bony tenderness palpation. Patient has mild right paraspinal tenderness palpation. 5 out of 5 strength in all lower extremity, no numbness. Do not suspect spinal cord compression or epidural abscess at this time. Urine test today is negative. UA was negative for UTI or any signs of kidney stones. X-ray showed lumbar spine negative for any acute findings. At this time, patient received lidocaine patch, Toradol, morphine and Tylenol reports feeling symptomatically improved. Rx: norflex, tylenol, lidocaine patch, and menthol PRN pain Disposition: Discharge. Patient counseled regarding diagnostic impression, treatment plan. Patient given ED strict return precautions to return for continuation, worsening, or development of new symptoms. Instructed to f/u w/ PCP regarding symptoms today. Patient verbalized understanding. Lab Data Radiology Impressions Lumbar Spine X-Ray 01/17/22 10:19 IMPRESSION: No acute osseous pathology. Laboratory Results Urine Color Straw (Yellow) 01/17/22 10:55 Urine Appearance Clear (CLEAR) 01/17/22 10:55 Urine pH 8 (5-7) H 01/17/22 10:55 Ur Specific [place] 1.010 (1.005-1.030) 01/17/22 10:55 Urine Protein Neg (Negative) 01/17/22 10:55 Urine Glucose (UA) Norm (Normal) 01/17/22 10:55 Urine Ketones Negative (Negative) 01/17/22 10:55 Urine Blood Neg (Negative) 01/17/22 10:55 Urine Nitrate Negative (Negative) 01/17/22 10:55 Urine Bilirubin Neg (Negative) 01/17/22 10:55 Prot Sulfosalicylic Acd Negative (Negative) 01/17/22 10:55 Urine Urobilinogen Norm mg/dL (Negative) 01/17/22 10:55 Ur Leukocyte Esterase Negative (Negative) 01/17/22 10:55 Urine HCG, Qual Negative (Negative) 01/17/22 10:55 Imaging Data Other Imaging: Radiologist's impression: [employer] [address] XRay Report Signed Patient: Sheeba Cobian Unit #: [id number] : 1980 Age/Sex: 41 / F ADM Date: 01/17/22 Loc: ER Room/Bed: Attending Dr: Ordering Provider/Ordering MD: Emigdio Gautam MD Date of Service: 01/17/22 Procedure(s): XR lumbar spine 2-3V* [id number] Accession Number(s): [id number] Report Number: [id number] PROCEDURE INFORMATION: Exam: XR Lumbosacral Spine Exam date and time: 01/17/2022 11:15 AM Age: 41 years old Clinical indication: Low back pain TECHNIQUE: Imaging protocol: Radiologic exam of the lumbosacral spine. Views: 2 or 3 views. COMPARISON: CR (PELVIS, ) 01/02/2021 12:39 AM FINDINGS: Bones/joints: No acute osseous pathology. Anatomic alignment. Marginal osteophytes. Soft tissues: Unremarkable. Gastrointestinal tract: Prominent stool. XR/XR lumbar spine 2-3V* [id number] IMPRESSION: No acute osseous pathology. ? Dictated By: Chon Carmona MD Signed By: Chon Carmona MD Signed Date/Time: 01/17/22 1207 DD/ 1115 Discharge Plan Discharge Patient Disposition: Home Clinical Impression: Back pain Condition: Stable Prescriptions: New lidocaine 5 % adhesive patch,medicated 1 patch topical DAILY PRN (Reason: pain) 30 Days Qty: 30 0RF Rx Instructions: leave on most painful area for up to 12 hrs orphenadrine citrate 100 mg tablet extended release 100 mg PO BID PRN (Reason: pain) 10 Days Qty: 20 0RF Biofreeze (menthol) 5 % gel 1 ea topical BID PRN (Reason: pain) 10 Days Qty: 1 0RF No Action buspirone 10 mg Tablet 10 mg PO 0900,2100 30 Days Qty: 60 1RF paliperidone 6 mg Tablet Extended Release 24hr 6 mg PO DAILY 30 Days Qty: 30 1RF ondansetron 4 mg tablet,disintegrating 4 mg PO Q8H PRN (Reason: nausea and vomiting) Qty: 15 0RF Protonix 40 mg tablet,delayed release (DR/EC) 40 mg PO BID 14 Days Qty: 28 0RF Discharge Orders: Discharge ED (Routine); Ordered 01/17/22 Ordered By: Emigdio Gautam Referrals: Julián Yañez MD [Primary Care Provider] - Discharge Diet: Advance as tolerated Discharge Activity: Increase activity as tolerated Patient Instructions: Back Pain (ED) Activity Restrictions/Additional Instructions: Please come back to the emergency room to have worsening back pain, if have any problem with urination and bowel movementm if you have any weakness in the legs, numbness in the legs, or if you have any new or concerning complaints. Coding Level of Care Code ED Supervisor Mending for Yung Fwrosa Exam Comprehensive
[2022-01-17 11:07] LABS: Bilirubin Urine Neg (Negative); Blood Urine Neg (Negative); Glucose Urine UA Norm (Normal); Ketones Urine Negative (Negative); Leukocyte Esterase Urine Negative (Negative); Nitrate Urine Negative (Negative); Protein Urine Neg (Negative); Urine Appearance Clear (CLEAR); Urine Color Straw (Yellow); Urobilinogen Urine Norm (Negative); pH Urine 8 (5-7)
[2022-01-17] MEDS: lidocaine 5% Patch 1 PATCH TOPICAL (11:23)
[2022-01-17] MEDS: ketorolac 30 mg/mL INJ IM (11:23)
[2022-01-17] MEDS: acetaminophen 500 mg Tablet PO (11:23)
[2022-01-17 13:13] LABS: Sulfosalicylic Acid Urine Negative (Negative)
== END 2022-01-17 11:56 | disposition home or self-care (01) ==
PROVIDERS: Emergency Provider Emergency Medicine; PCP Family Medicine
DX: M54.9 Dorsalgia, unspecified (principal); F17.210 Nicotine dependence, cigarettes, uncomplicated
CPT/HCPCS: 72100; 81003; 81025; 96372; 99284; J1885

== ENCOUNTER 2022-02-20 19:10 | Emergency (ER) | payer BC, MEDICAID, SELFPAY ==
[2022-02-20 19:18] VITALS: BP 109/75; PULSE 94; RESP 17; TEMP 36.3; O2SAT 100
--- NOTE | 2022-02-20 20:50 | W.ED.BACK ---
HPI - Back Pain/Injury General: Chief Complaint: Back Pain/Injury Stated Complaint: right side pain from knee to shoulder Time Seen by Provider: 02/20/22 20:36 History of Present Illness: Patient is a 42-year-old female comes to the ED with back pain. She has a history of chronic lower back pain. Back pain started a couple days ago. She states that she has been walking a lot. It starts in her lower back and radiates up into her right shoulder blade and down her right leg. She rates her pain currently an 8 out of 10. Denies any injury or trauma to cause pain. Associated symptoms: Deny abdominal pain, chills, dysuria, fatigue, fever(s), hematuria, nausea or vomiting Review of Systems Const: Denies: fever(s), chills or fatigue Eyes: Denies: change in vision or eye discomfort ENMT: Denies: throat pain, odynophagia, nasal discharge or nasal congestion Card: Denies: chest pain, palpitations, edema, swelling of feet/ankles, dyspnea on exertion or orthopnea Resp: Denies: dyspnea, productive cough or non-productive cough GI: Denies: abdominal pain, nausea, vomiting, diarrhea, constipation or hematochezia : Denies: flank pain, dysuria or hematuria Musc: Reports: back pain; Denies: neck pain or extremity swelling Skin/Breast: Denies: rash or new lesions Neuro: Denies: headache(s), numbness in extremities or weakness in extremities [facility] ED PFSH: Medical History No pertinent family history No pertinent past medical history Social History Smoking and tobacco status: current every day smoker Female Reproductive History: Date of last menstrual period: 12/20/21 Physical Exam Const: COMMON NORMALS: no acute distress, patient oriented x3 and alert GENERAL APPEARANCE: cooperative and comfortable HENMT: COMMON NORMALS: normocephalic HEAD & SCALP: normocephalic MOUTH: Normal oral and palatal mucosa present THROAT: posterior oropharynx normal and uvula midline Neck/C-Spine: COMMON NORMALS: supple GENERAL: Yes normal visual inspection Resp: COMMON NORMALS: normal respiratory effort, No retractions, No use of accessory muscles and clear to auscultation bilaterally AUSCULTATION: clear to auscultation bilaterally Cardio: COMMON NORMALS: regular rate, regular rhythm, S1 normal heart sound present, S2 normal heart sound present, No gallops present (Cardio), No clicks present (Cardio), No murmurs present (Cardio) and Peripheral pulses 2+ throughout RATE: regular rate RHYTHM: regular rhythm HEART SOUNDS: S1 normal heart sound present and S2 normal heart sound present PERIPHERAL PULSES: Peripheral pulses 2+ throughout GI: COMMON NORMALS: Normal to inspection, nondistended, normoactive bowel sounds present, Soft to palpation, non-tender and no masses PALPATION: Yes Soft to palpation : COMMON NORMALS: Yes no CVA tenderness BLADDER/KIDNEY EXAM: Yes no CVA tenderness Back/Pelvis: COMMON NORMALS: no CVA tenderness LUMBAR SPINE/LOWER BACK: Yes normal to inspection, Yes lumbar ROM normal, No lumbar spinal tenderness and Yes paraspinal muscle tenderness Lumbar paraspinal muscle tenderness: right Extremity: COMMON NORMALS: normal to inspection Neuro: COMMON NORMALS: patient oriented x3 SENSORIUM/ORIENTATION: Yes alert GAIT: Yes Normal gait present Skin: GENERAL SKIN EXAM: dry skin Course Vital Signs: Vital signs: Vital Signs Temperature 97.3 F L 02/20/22 19:18 Pulse Rate 94 02/20/22 19:18 Respiratory Rate 17 02/20/22 19:18 Blood Pressure 109/75 02/20/22 19:18 Pulse Oximetry 100 02/20/22 19:18 Oxygen Delivery Me thod 02/20/22 19:18 MDM - Back Pain/Injury Medical Decision Making Patient is a 42-year-old female comes to the ED with back pain. She has a history of chronic lower back pain. Back pain started a couple days ago. She states that she has been walking a lot. It starts in her lower back and radiates up into her right shoulder blade and down her right leg. She rates her pain currently an 8 out of 10. Denies any injury or trauma to cause pain. Vitals are stable. Patient has some right lumbar paraspinal muscle tenderness but no other acute findings upon exam. She is diagnosed with back pain and given a dose of Toradol, Norflex and Decadron. She was stable for discharge home and sent with a prescription for a muscle relaxer, prednisone and Celebrex. Follow-up with PCP in the next week for reevaluation. Patient understood and agreed with plan. Discharge Plan Discharge Patient Disposition: Home Clinical Impression: Back pain Qualifiers: Back pain location: low back pain Chronicity: unspecified Back pain laterality: right Sciatica presence: unspecified whether sciatica present Qualified Code(s): M54.50 - Low back pain, unspecified Condition: Stable Prescriptions: New Celebrex 100 mg capsule 100 mg PO BID PRN (Reason: pain) Qty: 20 0RF prednisone 20 mg tablet 20 mg PO BID 5 Days Qty: 10 0RF cyclobenzaprine 10 mg tablet 10 mg PO BID PRN (Reason: muscle spasm) Qty: 20 0RF No Action buspirone 10 mg Tablet 10 mg PO 0900,2100 30 Days Qty: 60 1RF paliperidone 6 mg Tablet Extended Release 24hr 6 mg PO DAILY 30 Days Qty: 30 1RF ondansetron 4 mg tablet,disintegrating 4 mg PO Q8H PRN (Reason: nausea and vomiting) Qty: 15 0RF Discharge Orders: Discharge ED (Routine); Ordered 02/20/22 Ordered By: Juan Thomas Referrals: Julián Yañez MD [Primary Care Provider] - Discharge Diet: Regular Discharge Activity: Increase activity as tolerated Activity Restrictions/Additional Instructions: Follow-up with medical provider as directed in the next 5 to 7 days for reevaluation. Take medications as prescribed. Return to the ER or your medical provider if condition worsens. Please read and understand discharge instructions. Thank you for choosing [facility] for your healthcare needs today. Please realize this is an emergency room and that we are providing you with a medical screening exam and this may not be complete and all inclusive of all the testing and or work up that you may need to determine your ailment or severity of your illness. It is very important that you follow up as instructed or that you return to the Emergency Department should you have concerns or if your condition changes or worsens in any way. Coding Level of Care Code ED Lodging House Keeper for Yung Melendez Exam Comprehensive
== END 2022-02-20 21:26 | disposition home or self-care (01) ==
PROVIDERS: Emergency Provider Physician Assistant; PCP Family Medicine
DX: M54.50 Low back pain, unspecified (principal); F17.210 Nicotine dependence, cigarettes, uncomplicated
CPT/HCPCS: 99284

== ENCOUNTER 2022-06-24 13:28 | Emergency (ER) | payer BC, MEDICAID, SELFPAY ==
[2022-06-24 13:51] VITALS: BP 142/85; PULSE 80; RESP 20; TEMP 37.2; O2SAT 97; BMI 27.6
--- NOTE | 2022-06-24 14:12 | W.ED.ABDPA2 ---
Documented by User: CITLALI Handley 06/24/22 16:15 HPI - Abdominal Pain General: Chief Complaint: Abdominal Pain Stated Complaint: abdomen pain Time Seen by Provider: 06/24/22 13:30 Source: patient Mode of arrival: EMS Limitations: no limitations History of Present Illness: Patient is a 42-year-old female presents to ED today via EMS for concerns of upper abdominal pain along with nausea and vomiting. Patient states she has had upper abdominal pain and nausea over the past 3 days. Today she began noticing what she describes as dark black coffee-ground emesis. Patient states she had approximately 15 episodes of these. She states she has a history of intermittent gastritis. No previous known GI ulcers or GI bleeds. She is not on any type of H2 sterling or PPI. Patient does admit to occasional alcohol use. She does report a large amount of alcohol use recently. Patient denies NSAID use. MD elicited complaint: abdominal pain Pertinent past history: other (gastritis) Onset (ago): day(s) Pain Consistency: constant Location: Epigastric Severity: severe Quality: sharp Radiation: none Migration to: no migration Relieving factors: nothing Associated Symptoms: Reports hematemesis, nausea and vomiting; Denies change in bowel habits, chills, constipation, diarrhea, dysuria, fever(s), hematochezia, hematuria and melena Related Data: Date of Last Menstrual Period: 12/20/21 Patient : No Review of Systems Const: Denies: fever(s), chills, body aches, fatigue or malaise Card: Denies: chest pain Resp: Denies: dyspnea GI: Reports: abdominal pain, nausea, vomiting and hematemesis; Denies: diarrhea, constipation, change in bowel habits, hematochezia or melena : Denies: flank pain, dysuria or hematuria Musc: Denies: neck pain, back pain, extremity pain or joint pain Skin/Breast: Denies: rash Neuro: Denies: headache(s), numbness in extremities, weakness in extremities or sensory changes PFS ED PFSH: Medical History No pertinent family history No pertinent past medical history Social History Smoking and tobacco status: current every day smoker Female Reproductive History: Date of last menstrual period: 12/20/21 Physical Exam Const: COMMON NORMALS: no acute distress, patient oriented x3, no limitations and alert GENERAL APPEARANCE: cooperative ORIENTATION/CONSCIOUSNESS: Yes awake, Yes oriented to person, Yes oriented to place and Yes oriented to time HENMT: COMMON NORMALS: normocephalic and atraumatic HEAD & SCALP: normal to inspection, normocephalic and atraumatic Neck/C-Spine: COMMON NORMALS: full ROM and no lymphadenopathy GENERAL: Yes normal visual inspection Resp: COMMON NORMALS: normal respiratory effort and clear to auscultation bilaterally AUSCULTATION: clear to auscultation bilaterally Cardio: COMMON NORMALS: regular rate and regular rhythm RATE: regular rate RHYTHM: regular rhythm GI: COMMON NORMALS: Normal to inspection, nondistended, normoactive bowel sounds present, Soft to palpation, No hepatosplenomegaly present and no masses INSPECTION: Yes normal to inspection AUSCULTATION: Yes normoactive bowel sounds PALPATION: Yes Soft to palpation, Yes Tenderness to palpation present (GI) (epigastric ), No Guarding due to palpation present (GI), No Rigid due to palpation and Yes No hepatosplenomegaly present OTHER: dark emesis with coffee grounds in emesis basin-this was gastrocculted and POSITIVE Back/Pelvis: COMMON NORMALS: thoracic and lumbar spine normal to inspection, no thoracic nor lumbar tenderness and thoraco-lumbar ROM normal Extremity: COMMON NORMALS: normal to inspection GENERAL: Yes normal exam except as noted Neuro: MICHELL COMA SCALE: document GCS findings [place] coma scale eye opening: Spontaneous [place] coma scale verbal response: Orientated [place] coma scale motor response: Obey commands [place] coma scale total score: 15 COMMON NORMALS: patient oriented x3, moves all extremities, no focal motor deficits and no sensory deficits noted SENSORIUM/ORIENTATION: Yes alert, Yes oriented to person, Yes oriented to place and Yes oriented to time Skin: COMMON NORMALS: no rashes or lesions noted GENERAL SKIN EXAM: no rashes or lesions noted Course Vital Signs: Vital signs: Vital Signs Temperature 99.0 F 06/24/22 13:51 Pulse Rate 80 06/24/22 13:51 Respiratory Rate 20 H 06/24/22 13:51 Blood Pressure 142/85 06/24/22 13:51 Pulse Oximetry 97 06/24/22 13:51 Oxygen Delivery Me thod 06/24/22 13:51 MDM - Abdominal Pain Lab Data 06/24/22 14:45 06/24/22 14:45 Labs/Radiology: Radiology Impressions Abdomen/Pelvis CT 06/24/22 14:19 IMPRESSION: Mucosal thickening of the proximal (2nd portion) of the duodenum. Underlying ulcer in this region is a consideration. Laboratory Results WBC 14.7 10^3/uL (4.0-10.0) H 06/24/22 14:45 RBC 4.85 10^6/uL (4.1-5.3) 06/24/22 14:45 Hgb 12.9 g/dL (11.5-15.3) 06/24/22 14:45 Hct 39.8 % (37.0-47.0) 06/24/22 14:45 MCV 82.1 fl (81-99) 06/24/22 14:45 MCH 26.6 pg (28.0-34.0) L 06/24/22 14:45 MCHC 32.4 g/dL (30.0-36.0) 06/24/22 14:45 RDW 16.0 % (12.1-15.1) H 06/24/22 14:45 Plt Count 315 10^3/cmm (130-400) 06/24/22 14:45 MPV 9.5 fL (7.4-10.4) 06/24/22 14:45 Neut % (Auto) 95.1 % 06/24/22 14:45 Lymph % (Auto) 3.4 % 06/24/22 14:45 Emery % (Auto) 1.1 % 06/24/22 14:45 Eos % (Auto) 0.0 % 06/24/22 14:45 Baso % (Auto) 0.1 % 06/24/22 14:45 Neut # (Auto) 14.02 10^3/uL (1.8-7.7) H 06/24/22 14:45 Lymph # (Auto) 0.5 10^3/uL (0.8-4.8) L 06/24/22 14:45 Emery # (Auto) 0.2 10^3/uL (0.2-0.9) 06/24/22 14:45 Eos # (Auto) 0.0 10^3/uL (0.0-0.8) 06/24/22 14:45 Baso # (Auto) 0.0 10^3/uL (0.0-0.1) 06/24/22 14:45 Nucleated RBC % (auto) 0 % 06/24/22 14:45 Nucleated RBCs # 0.0 /100WBC 06/24/22 14:45 PT 14.10 SECONDS (12.1-14.9) 06/24/22 14:45 INR 1.06 (0.8-1.2) 06/24/22 14:45 APTT 22.8 SECONDS (23.9-36.7) L 06/24/22 14:45 Sodium 138 mmol/L (136-145) 06/24/22 14:45 Potassium 3.7 mmol/L (3.5-5.1) 06/24/22 14:45 Chloride 102 mmol/L (98-107) 06/24/22 14:45 Carbon Dioxide 20 mmol/L (22-29) L 06/24/22 14:45 Anion Gap 19.7 (5-19) H 06/24/22 14:45 BUN 23 mg/dL (6-20) H 06/24/22 14:45 Creatinine 0.7 mg/dL (0.5-0.9) 06/24/22 14:45 GFR Calculation 92.7 mL/min (90-130) 06/24/22 14:45 Glucose 133 mg/dL (65-115) H 06/24/22 14:45 Calculated Osmolality 292 mOsm/kg (285-295) 06/24/22 14:45 Calcium 9.1 mg/dL (8.5-10.5) 06/24/22 14:45 Total Bilirubin 0.7 mg/dL (0.15-1.2) 06/24/22 14:45 AST 15 U/L (0-32) 06/24/22 14:45 ALT 10 U/L (0-33) 06/24/22 14:45 Alkaline Phosphatase 95 U/L (35-105) 06/24/22 14:45 Total Protein 7.3 g/dL (6.6-8.7) 06/24/22 14:45 Albumin 4.8 g/dL (3.5-5.2) 06/24/22 14:45 Globulin 2.5 g/dL (1.3-4.6) 06/24/22 14:45 Lipase 27 U/L (13-60) 06/24/22 14:45 HCG, Qual Negative (Negative) 06/24/22 14:45 Urine Color Yellow (Yellow) 06/24/22 15:21 Urine Appearance Sl hazy (CLEAR) A 06/24/22 15:21 Urine pH 5 (5-7) 06/24/22 15:21 Ur Specific [place] 1.025 (1.005-1.030) 06/24/22 15:21 Urine Protein Trace (Negative) 06/24/22 15:21 Urine Glucose (UA) Norm (Normal) 06/24/22 15:21 Urine Ketones 2+ (Negative) H 06/24/22 15:21 Urine Blood Neg (Negative) 06/24/22 15:21 Urine Nitrate Positive (Negative) H 06/24/22 15:21 Urine Bilirubin Neg (Negative) 06/24/22 15:21 Urine Urobilinogen Norm mg/dL (Negative) 06/24/22 15:21 Ur Leukocyte Esterase Negative (Negative) 06/24/22 15:21 Urine RBC 0-4 /hpf (0-2) H 06/24/22 15:21 Urine WBC 0-4 /hpf (0-5) H 06/24/22 15:21 Ur Squamous Epith Cells 0-4 /hpf (0-5) H 06/24/22 15:21 Calcium Oxalate Crystal 10-15 /hpf H 06/24/22 15:21 Amorphous Sediment 1+ /hpf 06/24/22 15:21 Urine Bacteria 3+ /hpf (NONE) H 06/24/22 15:21 Urine Mucus 3+ /hpf 06/24/22 15:21 Discharge Plan Discharge Patient Disposition: Home Clinical Impression: Duodenal ulcer, Vomiting Condition: Stable Prescriptions: New Carafate 1 gram tablet 1 g PO TID 28 Days Qty: 84 0RF Protonix 40 mg tablet,delayed release (DR/EC) 40 mg PO DAILY 28 Days Qty: 60 0RF ondansetron 4 mg tablet,disintegrating 4 mg PO Q8H 5 Days Qty: 15 0RF No Action prednisone 10 mg Tablet See Rx Instructions .ROUTE .COMPLEX Rx Instructions: 4 tabs po daily for 3 days 3 tabs po daily for 3 days 2 tabs po daily for 3 days 1 tab po daily for 3 days Aleve 220 mg Tablet 220 mg PO Q12H PRN (Reason: Pain) buspirone 15 mg tablet 15 mg PO BID PRN (Reason: Anxiety) Discharge Orders: Discharge ED (Routine); Ordered 06/24/22 Ordered By: Shiloh Celaya Referrals: Julián Yañez MD [Primary Care Provider] - Discharge Diet: As Directed Discharge Activity: Increase activity as tolerated Patient Instructions: Peptic Ulcer (ED), Gastritis (ED) Activity Restrictions/Additional Instructions: Your work-up and evaluation here in the emergency department has led to suspicion for diagnosis of gastritis as well as a duodenal ulcer. I have included some information regarding these diagnoses for you to read at home-these also include diet changes and recommendations to help prevent any upset stomach. I have also prescribed you some medication to help decrease the amount of acid produced in your stomach which helps allow ulcers to heal. We have sent a referral for follow-up on your behalf to have further evaluation and to discuss an upper endoscopy to continue the evaluation of these findings. You need to return to the emergency department if you begin having black tarry stools, return of significant vomiting-with or without blood, any new onset fever, sudden dizziness or lightheadedness or any sudden, severe worsening of abdominal pains. Sign Out Sign Out Data: Patient Sign Out occurred on 06/24/22 at 17:06. Patient's care was discussed, and care was transferred from to CITLALI Rivera. Coding Level of Care Code ED Mineral Surveying Technician for Chg Fwd Documented by User: CITLALI Rivera 06/24/22 18:17 HPI - Abdominal Pain General: Chief Complaint: Abdominal Pain Stated Complaint: abdomen pain Time Seen by Provider: 06/24/22 13:30 PFS ED PFSH: Medical History No pertinent family history No pertinent past medical history Social History Smoking and tobacco status: current every day smoker Physical Exam Neuro: MICHELL COMA SCALE: document GCS findings [place] coma scale total score: 15 Course Vital Signs: Vital signs: Vital Signs Temperature 99.0 F 06/24/22 13:51 Pulse Rate 80 06/24/22 13:51 Respiratory Rate 20 H 06/24/22 13:51 Blood Pressure 142/85 06/24/22 13:51 Pulse Oximetry 97 06/24/22 13:51 Oxygen Delivery Me thod 06/24/22 13:51 MDM - Abdominal Pain Medical Decision Making Patient presented to the emergency department today for evaluation treatment of complaints of epigastric abdominal pain and vomiting. Patient reported approximately 15 episodes of vomiting today and did have 1 episode of vomiting here in the ER. Patient was being seen and evaluated by Lilibeth Jaeger NP at the time and she indicated she had run a Gastroccult which was positive. She informing that the patient has a history of alcohol use and drink approximately a fifth of hard liquor 48 hours ago. Patient had IV morphine, antinausea medication and Protonix. She was waiting for a final CT read at the time of patient care transfer. Patient care was transferred to myself, CITLALI Nichols. CT examination came back indicating inflammation of the gastric mucosa and suspicion for duodenal ulcer. Patient's lab work is otherwise unremarkable. After speaking with the nurse practitioner, the plan for discharge on Carafate, PPI, and antinausea medication stillstands. She had already placed a referral for GI/GEN surge follow-up to discuss endoscopy. Patient indicated her pain was starting to return and we did provide her a GI cocktail and another round of antiemetic prior to discharge. Patient was given dietary changes restrictions and information on her discharge paperwork. She is to avoid NSAIDs, alcohol, caffeine, and smoking. Strict return precautions for change or worsening in her condition were discussed. Differential Diagnosis Likely abdominal pain, acute appendicitis, constipation, diverticulitis, gastroenteritis, pancreatitis and small bowel obstruction Lab Data 06/24/22 14:45 06/24/22 14:45 Labs/Radiology: Radiology Impressions Abdomen/Pelvis CT 06/24/22 14:19 IMPRESSION: Mucosal thickening of the proximal (2nd portion) of the duodenum. Underlying ulcer in this region is a consideration. Laboratory Results WBC 14.7 10^3/uL (4.0-10.0) H 06/24/22 14:45 RBC 4.85 10^6/uL (4.1-5.3) 06/24/22 14:45 Hgb 12.9 g/dL (11.5-15.3) 06/24/22 14:45 Hct 39.8 % (37.0-47.0) 06/24/22 14:45 MCV 82.1 fl (81-99) 06/24/22 14:45 MCH 26.6 pg (28.0-34.0) L 06/24/22 14:45 MCHC 32.4 g/dL (30.0-36.0) 06/24/22 14:45 RDW 16.0 % (12.1-15.1) H 06/24/22 14:45 Plt Count 315 10^3/cmm (130-400) 06/24/22 14:45 MPV 9.5 fL (7.4-10.4) 06/24/22 14:45 Neut % (Auto) 95.1 % 06/24/22 14:45 Lymph % (Auto) 3.4 % 06/24/22 14:45 Emery % (Auto) 1.1 % 06/24/22 14:45 Eos % (Auto) 0.0 % 06/24/22 14:45 Baso % (Auto) 0.1 % 06/24/22 14:45 Neut # (Auto) 14.02 10^3/uL (1.8-7.7) H 06/24/22 14:45 Lymph # (Auto) 0.5 10^3/uL (0.8-4.8) L 06/24/22 14:45 Emery # (Auto) 0.2 10^3/uL (0.2-0.9) 06/24/22 14:45 Eos # (Auto) 0.0 10^3/uL (0.0-0.8) 06/24/22 14:45 Baso # (Auto) 0.0 10^3/uL (0.0-0.1) 06/24/22 14:45 Nucleated RBC % (auto) 0 % 06/24/22 14:45 Nucleated RBCs # 0.0 /100WBC 06/24/22 14:45 PT 14.10 SECONDS (12.1-14.9) 06/24/22 14:45 INR 1.06 (0.8-1.2) 06/24/22 14:45 APTT 22.8 SECONDS (23.9-36.7) L 06/24/22 14:45 Sodium 138 mmol/L (136-145) 06/24/22 14:45 Potassium 3.7 mmol/L (3.5-5.1) 06/24/22 14:45 Chloride 102 mmol/L (98-107) 06/24/22 14:45 Carbon Dioxide 20 mmol/L (22-29) L 06/24/22 14:45 Anion Gap 19.7 (5-19) H 06/24/22 14:45 BUN 23 mg/dL (6-20) H 06/24/22 14:45 Creatinine 0.7 mg/dL (0.5-0.9) 06/24/22 14:45 GFR Calculation 92.7 mL/min (90-130) 06/24/22 14:45 Glucose 133 mg/dL (65-115) H 06/24/22 14:45 Calculated Osmolality 292 mOsm/kg (285-295) 06/24/22 14:45 Calcium 9.1 mg/dL (8.5-10.5) 06/24/22 14:45 Total Bilirubin 0.7 mg/dL (0.15-1.2) 06/24/22 14:45 AST 15 U/L (0-32) 06/24/22 14:45 ALT 10 U/L (0-33) 06/24/22 14:45 Alkaline Phosphatase 95 U/L (35-105) 06/24/22 14:45 Total Protein 7.3 g/dL (6.6-8.7) 06/24/22 14:45 Albumin 4.8 g/dL (3.5-5.2) 06/24/22 14:45 Globulin 2.5 g/dL (1.3-4.6) 06/24/22 14:45 Lipase 27 U/L (13-60) 06/24/22 14:45 HCG, Qual Negative (Negative) 06/24/22 14:45 Urine Color Yellow (Yellow) 06/24/22 15:21 Urine Appearance Sl hazy (CLEAR) A 06/24/22 15:21 Urine pH 5 (5-7) 06/24/22 15:21 Ur Specific [place] 1.025 (1.005-1.030) 06/24/22 15:21 Urine Protein Trace (Negative) 06/24/22 15:21 Urine Glucose (UA) Norm (Normal) 06/24/22 15:21 Urine Ketones 2+ (Negative) H 06/24/22 15:21 Urine Blood Neg (Negative) 06/24/22 15:21 Urine Nitrate Positive (Negative) H 06/24/22 15:21 Urine Bilirubin Neg (Negative) 06/24/22 15:21 Urine Urobilinogen Norm mg/dL (Negative) 06/24/22 15:21 Ur Leukocyte Esterase Negative (Negative) 06/24/22 15:21 Urine RBC 0-4 /hpf (0-2) H 06/24/22 15:21 Urine WBC 0-4 /hpf (0-5) H 06/24/22 15:21 Ur Squamous Epith Cells 0-4 /hpf (0-5) H 06/24/22 15:21 Calcium Oxalate Crystal 10-15 /hpf H 06/24/22 15:21 Amorphous Sediment 1+ /hpf 06/24/22 15:21 Urine Bacteria 3+ /hpf (NONE) H 06/24/22 15:21 Urine Mucus 3+ /hpf 06/24/22 15:21 Discharge Plan Discharge Patient Disposition: Home Clinical Impression: Duodenal ulcer, Vomiting Condition: Stable Prescriptions: New Carafate 1 gram tablet 1 g PO TID 28 Days Qty: 84 0RF Protonix 40 mg tablet,delayed release (DR/EC) 40 mg PO DAILY 28 Days Qty: 60 0RF ondansetron 4 mg tablet,disintegrating 4 mg PO Q8H 5 Days Qty: 15 0RF No Action prednisone 10 mg Tablet See Rx Instructions .ROUTE .COMPLEX Rx Instructions: 4 tabs po daily for 3 days 3 tabs po daily for 3 days 2 tabs po daily for 3 days 1 tab po daily for 3 days Aleve 220 mg Tablet 220 mg PO Q12H PRN (Reason: Pain) buspirone 15 mg tablet 15 mg PO BID PRN (Reason: Anxiety) Discharge Orders: Discharge ED (Routine); Ordered 06/24/22 Ordered By: Shiloh Celaya Referrals: Julián Yañez MD [Primary Care Provider] - Discharge Diet: As Directed Discharge Activity: Increase activity as tolerated Patient Instructions: Peptic Ulcer (ED), Gastritis (ED) Activity Restrictions/Additional Instructions: Your work-up and evaluation here in the emergency department has led to suspicion for diagnosis of gastritis as well as a duodenal ulcer. I have included some information regarding these diagnoses for you to read at home-these also include diet changes and recommendations to help prevent any upset stomach. I have also prescribed you some medication to help decrease the amount of acid produced in your stomach which helps allow ulcers to heal. We have sent a referral for follow-up on your behalf to have further evaluation and to discuss an upper endoscopy to continue the evaluation of these findings. You need to return to the emergency department if you begin having black tarry stools, return of significant vomiting-with or without blood, any new onset fever, sudden dizziness or lightheadedness or any sudden, severe worsening of abdominal pains. Sign Out Sign Out Data: Patient Sign Out occurred on 06/24/22 at 17:06. Patient's care was discussed, and care was transferred from to CITLALI Rivera. Coding Level of Care Code ED Mineral Surveying Technician for Yung Melendez
--- NOTE | 2022-06-24 14:19 | CTR_ITS ---
PROCEDURE INFORMATION: Exam: CT Abdomen And Pelvis With Contrast Exam date and time: 06/24/2022 4:23 PM Age: 42 years old Clinical indication: Abdominal pain; Epigastric; Additional info: Upper gi bleed, abdominal pain TECHNIQUE: Imaging protocol: Computed tomography of the abdomen and pelvis with contrast. Radiation optimization: All CT scans at this facility use at least one of these dose optimization techniques: automated exposure control; mA and/or kV adjustment per patient size (includes targeted exams where dose is matched to clinical indication); or iterative reconstruction. Contrast material: OMNIPAQUE 350; Contrast volume: 95 ml; Contrast route: INTRAVENOUS (IV); Other protocol: This patient has received [address] and 0 known cardiac nuclear medicine studies in the 12 months prior to the current study. COMPARISON: CT abdomen pelvis w con* [id number] 08/21/2021 10:25 AM RADIATION DOSE METRICS: Total DLP (mGy-cm): 452.05 FINDINGS: Liver: Normal. No mass. Gallbladder and bile ducts: Normal. No calcified stones. No ductal dilation. Pancreas: Normal. No ductal dilation. Spleen: Normal. No splenomegaly. Adrenal glands: Normal. No mass. Kidneys and ureters: Normal. No hydronephrosis. Stomach and bowel: There is mucosal thickening of the proximal (2nd portion) of the duodenum as noted on series 3, image 33. There appears to be submucosal fat deposition in this region which may suggest chronic inflammation in this region. No obstruction. Scattered colonic diverticulosis. Appendix: No evidence of appendicitis. Intraperitoneal space: Unremarkable. No free air. No significant fluid collection. Vasculature: Unremarkable. No abdominal aortic aneurysm. Lymph nodes: Unremarkable. No enlarged lymph nodes. Urinary bladder: Unremarkable as visualized. Reproductive: Retroverted uterus. Corpus luteum noted in the left ovary. Bones/joints: No acute fracture. Soft tissues: Unremarkable. CT/CT abdomen pelvis w con* [id number] IMPRESSION: Mucosal thickening of the proximal (2nd portion) of the duodenum. Underlying ulcer in this region is a consideration.
[2022-06-24] MEDS: morphine 4 mg/mL SDV 1 mL IVP (14:36)
[2022-06-24] MEDS: sodium chloride 0.9% 1,000 ML 999 ML IV (14:36)
[2022-06-24] MEDS: ondansetron 2 mg/ML SDV 2 mL 4 MG IVP ×2 (14:36→18:02)
[2022-06-24] MEDS: pantoprazole 40 mg SDV IVP (14:36)
[2022-06-24 14:54] LABS: Basophils % 0.1 %; Hematocrit 39.8 % (37.0-47.0); Hemoglobin 12.9 g/dL (11.5-15.3); Lymphocytes # 0.5 10^3/uL (0.8-4.8); Lymphocytes % 3.4 %; Mean Corpuscular HGB Conc 32.4 g/dL (30.0-36.0); Mean Corpuscular Hemoglobin 26.6 pg (28.0-34.0); Mean Corpuscular Volume 82.1 fl (81-99); Mean Platelet Volume 9.5 fL (7.4-10.4); Monocytes # 0.2 10^3/uL (0.2-0.9); Monocytes % 1.1 %; Neutrophils # 14.02 10^3/uL (1.8-7.7); Neutrophils % 95.1 %; Nucleated Red Blood Cells % 0 %; Platelet Count 315 10^3/cmm (130-400); Red Blood Count 4.85 10^6/uL (4.1-5.3); White Blood Count 14.7 10^3/uL (4.0-10.0)
[2022-06-24 15:12] LABS: INR 1.06 (0.8-1.2); Partial Thromboplastin Time 22.8 SECONDS (23.9-36.7)
[2022-06-24 15:15] LABS: Alanine Aminotransferase 10 U/L (0-33); Albumin Level 4.8 g/dL (3.5-5.2); Alkaline Phosphatase 95 U/L (35-105); Anion Gap 19.7 (5-19); Aspartate Amino Transferase 15 U/L (0-32); Blood Urea Nitrogen 23 mg/dL (6-20); Calcium 9.1 mg/dL (8.5-10.5); Carbon Dioxide 20 mmol/L (22-29); Chloride 102 mmol/L (98-107); Globulin 2.5 g/dL (1.3-4.6); Glomerular Filtration Rate 92.7 mL/min (90-130); Glucose 133 mg/dL (65-115); Lipase 27 U/L (13-60); Osmolality Calculated 292 mOsm/kg (285-295); Potassium 3.7 mmol/L (3.5-5.1); Sodium 138 mmol/L (136-145); Total Bilirubin 0.7 mg/dL (0.15-1.2); Total Protein 7.3 g/dL (6.6-8.7)
[2022-06-24 15:17] LABS: HCG, Serum Qual Negative (Negative)
[2022-06-24 16:01] LABS: Bilirubin Urine Neg (Negative); Blood Urine Neg (Negative); Glucose Urine UA Norm (Normal); Ketones Urine 2+ (Negative); Leukocyte Esterase Urine Negative (Negative); Nitrate Urine Positive (Negative); Protein Urine Trace (Negative); Specific Gravity, Urine 1.025 (1.005-1.030); Urine Appearance SL Hazy (CLEAR); Urine Color Yellow (Yellow); Urobilinogen Urine Norm (Negative); pH Urine 5 (5-7)
[2022-06-24 16:02] LABS: Add Urine Microscopic? YES; Amorphous Sediment Urine 1+ /hpf; Bacteria Urine 3+ /hpf; Mucus Urine 3+ /hpf; RBC Urine 0-4 /hpf (0-2); Squamous Epithelial Cell Urine 0-4 /hpf (0-5); WBC Urine 0-4 /hpf (0-5)
[2022-06-24 16:04] LABS: Add Urine Culture? Yes
[2022-06-24] MEDS: iohexol 350 mg/mL 500 mL Btl (per mL) IV (16:26)
[2022-06-24] MEDS: lidocaine 2% viscous 15 ML, aluminum-mag hydrox-simethicon 30 ML, sucralfate oral liq 1 GM PO (17:58)
[2022-06-24 18:43] VITALS: PULSE 92; RESP 18; O2SAT 95
--- NOTE | 2022-06-25 10:27 | DCPLANNER ---
Addendum entered by Geovanna Redd 07/16/22 08:22: patient safety manager received the following message from the general surgery clinic regarding follow up appointment: Due to phone number not allowing calls. Sending patient a letter On 06/29/22 @ 13:11 Jessie Dumont Wrote To Head Gauge Unit Operator Front Off phone is not accepting phone calls On 06/25/22 @ 13:11 Nithin Alexander Wrote To Head Gauge Unit Operator Front Off called and patient is not accepting call currently 06/25 Original Note: patient safety manager had message to schedule a follow up appointment for patient with general surgery. patient safety manager sent patients information to the front office staff at general surgery. Patients information will be printed and reviewed. Clinic will call patient with appointment information.
== END 2022-06-24 18:43 | disposition home or self-care (01) ==
PROVIDERS: Physician Assistant; Emergency Provider Physician Assistant; PCP Family Medicine
DX: K26.9 Duodenal ulcer, unspecified as acute or chronic, without hemorrhage or perforation (principal)
CPT/HCPCS: 74177; 80053; 81001; 83690; 84703; 85025; 85610; 85730; 87077; 87086; 87186; 96361; 96374; 96375; 96376; 99285; C9113; J2270; J2405; J7030; Q9967

== ENCOUNTER 2022-08-22 12:03 | Emergency (ER) | payer BC, MEDICAID, SELFPAY ==
[2022-08-22 12:35] VITALS: BMI 28.3
[2022-08-22 12:39] VITALS: BP 125/71; PULSE 81; TEMP 36.9; O2SAT 93
[2022-08-22 12:41] VITALS: BMI 27.3
[2022-08-22 12:44] VITALS: BP 106/70; PULSE 75; TEMP 36.5; O2SAT 99
--- NOTE | 2022-08-22 12:59 | XRR_ITS ---
PROCEDURE INFORMATION: Exam: XR Right Knee Exam date and time: 08/22/2022 1:13 PM Age: 42 years old Clinical indication: Injury or trauma; Fall; Blunt trauma; Knee; Right; Additional info: Trauma, fall TECHNIQUE: Imaging protocol: Radiologic exam of the right knee. Views: 3 views. COMPARISON: No relevant prior studies available. FINDINGS: Bones/joints: Normal. Soft tissues: Normal. XR/XR knee RT 3V* [id number] IMPRESSION: No acute findings.
--- NOTE | 2022-08-22 12:59 | XRR_ITS ---
PROCEDURE INFORMATION: Exam: XR Right Shoulder Exam date and time: 08/22/2022 1:13 PM Age: 42 years old Clinical indication: Injury or trauma; Fall; Blunt trauma (contusions or hematomas); Shoulder; Right; Additional info: Trauma, pain TECHNIQUE: Imaging protocol: Radiologic exam of the right shoulder. Views: 2 or more views. COMPARISON: CR XR chest 1V portable [id number] 12/11/2021 3:06 AM FINDINGS: Bones/joints: Normal. Soft tissues: Normal. XR/XR shoulder RT min 2V* [id number] IMPRESSION: No acute findings.
--- NOTE | 2022-08-22 13:00 | CTR_ITS ---
PROCEDURE INFORMATION: Exam: CT Head Without Contrast Exam date and time: 08/22/2022 2:07 PM Age: 42 years old Clinical indication: Injury or trauma; Fall; Blunt trauma (contusions or hematomas); Additional info: Fall from tree TECHNIQUE: Imaging protocol: Computed tomography of the head without contrast. Radiation optimization: All CT scans at this facility use at least one of these dose optimization techniques: automated exposure control; mA and/or kV adjustment per patient size (includes targeted exams where dose is matched to clinical indication); or iterative reconstruction. REPORTING DATA: Count of CT and Cardiac NM exams in prior 12 months: This patient has received [address] and 0 known cardiac nuclear medicine studies in the 12 months prior to the current study. COMPARISON: No relevant prior studies available. RADIATION DOSE METRICS: Total DLP (mGy-cm): 1028.18 FINDINGS: Brain: Normal. No hemorrhage. Unremarkable white matter. No mass effect. Cerebral ventricles: No ventriculomegaly. Paranasal sinuses: Visualized sinuses are unremarkable. No fluid levels. Mastoid air cells: Visualized mastoid air cells are well aerated. Bones/joints: Unremarkable. No acute fracture. Soft tissues: Unremarkable. CT/CT head wo con* [id number] IMPRESSION: No acute intracranial abnormality.
--- NOTE | 2022-08-22 13:01 | W.ED.FALL ---
HPI - Fall General: Chief Complaint: Fall Stated Complaint: Right leg injury Time Seen by Provider: 08/22/22 12:04 History of Present Illness: Patient is a 42-year-old female that presents to the emergency department with complaints of head trauma, right shoulder pain, and right knee pain. Patient states that she was climbing a tree yesterday and fell from it. She landed on her right knee and with outstretched right upper extremity. She reports she did strike her head but had no LOC. Associated symptoms-after fall: Denies abdominal pain, chest pain, confusion, difficulty walking, headache(s), hematuria or neck pain Review of Systems General: Reports: 10 or more systems reviewed and unremarkable except in HPI and below Const: Denies: fever(s), chills, change in appetite, change in weight, fatigue or malaise Eyes: Denies: change in vision, eye discomfort, eye discharge or eye redness ENMT: Denies: throat pain, enlarged tonsils, odynophagia, hoarseness, ear or mastoid pain, ear discharge, change in hearing, tinnitus, nasal discharge, nasal congestion, post nasal drip or sinus pain Card: Denies: chest pain, palpitations, irregular heart rhythm, edema, dyspnea on exertion, orthopnea or leg pain with exertion Resp: Denies: dyspnea, productive cough, non-productive cough, wheezing, stridor or chest congestion GI: Denies: abdominal pain, nausea, vomiting, dysphagia, diarrhea, constipation, bloating, GI cramping or hematochezia : Denies: flank pain, difficulty voiding, dysuria, urinary frequency, urinary urgency, urinary hesitancy, oliguria or hematuria Musc: Reports: extremity pain, joint pain, joint swelling, joint stiffness and limited range of motion; Denies: neck pain, back pain, joint redness, joint warmth or muscle weakness Skin/Breast: Denies: rash, pruritus, erythema, photosensitivity or new lesions Neuro: Denies: headache(s), numbness in extremities, weakness in extremities, sensory changes, lack of coordination, difficulty walking, frequent falls, dizziness, confusion, Slurred speech present, difficulty communicating thoughts, seizure-like activity or involuntary movements Endo: Denies: polyuria, polydipsia or tired all the time Tab/Lymph: Denies: easy bruising or easy bleeding PFSH ED PFSH: Medical History No pertinent family history No pertinent past medical history Social History Smoking and tobacco status: current every day smoker Physical Exam Const: COMMON NORMALS: no acute distress, patient oriented x3 and alert GENERAL APPEARANCE: cooperative ORIENTATION/CONSCIOUSNESS: Yes awake, Yes oriented to person, Yes oriented to place and Yes oriented to time Neck/C-Spine: COMMON NORMALS: full ROM GENERAL: Yes normal visual inspection Lymph: LYMPHATIC: no lymphadenopathy noted Chest: COMMONS NORMALS: normal inspection of the chest Breast/axilla inspection: Yes no chest deformity, asymmetry, normal contours, no nodules, masses, tenderness Resp: COMMON NORMALS: normal respiratory effort, No retractions, No use of accessory muscles and clear to auscultation bilaterally EFFORT & INSPECTION: Yes able to speak in complete sentences and Yes symmetric chest movement AUSCULTATION: clear to auscultation bilaterally Cardio: COMMON NORMALS: regular rate, regular rhythm and Peripheral pulses 2+ throughout RATE: regular rate RHYTHM: regular rhythm PERIPHERAL PULSES: Peripheral pulses 2+ throughout GI: COMMON NORMALS: Normal to inspection, nondistended, normoactive bowel sounds present, Soft to palpation, non-tender and No hepatosplenomegaly present INSPECTION: Yes normal to inspection AUSCULTATION: Yes normoactive bowel sounds PALPATION: Yes Soft to palpation and Yes No hepatosplenomegaly present RECTAL EXAM: deferred Extremity: COMMON NORMALS: normal to inspection GENERAL: Yes normal exam except as noted OTHER: Upper extremity: Patient has limited range of motion of the right shoulder. This is due to pain. She can forward flex to 90 degrees, externally rotate to 30 degrees, and internally rotate?fingers to sacrum. She is able to supinate and pronate Patient is able to extend her wrist, give a thumbs up, make an okay sign, cross fingers, abduct fingers and make a fist Sensation is intact to light touch at axillary, radial, median, ulnar nerve distribution Radial pulses palpable and cap refills less than 3 seconds Right lower extremity: Patient is able to flex and extend the hip as well as knee but she reports it stiff and painful Patient is able to do a straight leg raise Patient is able to dorsiflex plantarflex her foot Able to dorsiflex great toe Sensation intact light touch at medial, lateral, dorsal, plantar surface of the foot and first webspace DP pulses palpable and cap refills less than 3 seconds Neuro: COMMON NORMALS: patient oriented x3 SENSORIUM/ORIENTATION: Yes alert, Yes oriented to person, Yes oriented to place and Yes oriented to time CRANIAL NERVES: Yes CN normal except as noted Psych: COMMON NORMALS: mental status grossly normal, Normal thought process present, cooperative, activity/motor behavior normal, denies homicidal ideation and denies suicidal ideation THOUGHT PROCESS: Normal thought process present Skin: COMMON NORMALS: no rashes or lesions noted, no wounds and turgor normal GENERAL SKIN EXAM: no rashes or lesions noted and turgor normal Course Vital Signs: Vital signs: Vital Signs Temperature 97.7 F 08/22/22 12:44 Pulse Rate 75 08/22/22 12:44 Blood Pressure 106/70 08/22/22 12:44 Pulse Oximetry 99 08/22/22 12:44 Oxygen Delivery Me thod Room Air 08/22/22 12:44 MDM - Fall Medical Decision Making Differential diagnosis includes contusions, abrasions, effusions, fractures, ligamentous injury. She had a 4 foot fall from a tree yesterday. Initially she thought she was okay but as the day wore on she became more stiff and painful with movement. Patient underwent XR imaging of her right shoulder, right knee and a CT head. Imaging completed and revealed no acute findings with the knee, shoulder, or head CT. Patient and I discussed avoiding any fall injuries. I advised her to use RICE. She is to follow-up with her primary care doctor She is also to return to the emergency department for new concerning or worsening symptoms. Questions sought and answered Lab Data Radiology Impressions Knee X-Ray 08/22/22 12:59 IMPRESSION: No acute findings. Shoulder X-Ray 08/22/22 12:59 IMPRESSION: No acute findings. Head CT 08/22/22 13:00 IMPRESSION: No acute intracranial abnormality. Discharge Plan Discharge Patient Disposition: Home Clinical Impression: Multiple contusions, Fall Condition: Stable Prescriptions: No Action prednisone 10 mg Tablet See Rx Instructions .ROUTE .COMPLEX Rx Instructions: 4 tabs po daily for 3 days 3 tabs po daily for 3 days 2 tabs po daily for 3 days 1 tab po daily for 3 days Aleve 220 mg Tablet 220 mg PO Q12H PRN (Reason: Pain) buspirone 15 mg tablet 15 mg PO BID PRN (Reason: Anxiety) Discharge Orders: Discharge ED (Routine); Ordered 08/22/22 Ordered By: Bandar Mahmood Referrals: Julián Yañez MD [Primary Care Provider] - Discharge Diet: Advance as tolerated Discharge Activity: Resume usual activity Patient Instructions: Knee Pain (ED), Fall Prevention (ED), Shoulder Pain (ED), Pain Management Activity Restrictions/Additional Instructions: Please return to the emergency department for new, concerning, worsening symptoms Coding Level of Care Code ED Line Installation Supervisor for Yung Melendez
== END 2022-08-22 15:00 | disposition home or self-care (01) ==
PROVIDERS: Emergency Provider Nurse Practitioner; PCP Family Medicine
DX: T14.8XXA Other injury of unspecified body region, initial encounter (principal); W14.XXXA Fall from tree, initial encounter; F17.210 Nicotine dependence, cigarettes, uncomplicated
CPT/HCPCS: 70450; 73030; 73562; 99284

== ENCOUNTER 2022-09-05 16:55 | Emergency (ER) | payer BC, MEDICAID, SELFPAY ==
[2022-09-05 16:59] VITALS: BP 125/86; PULSE 76; RESP 17; TEMP 36.7; O2SAT 99; BMI 27.8
--- NOTE | 2022-09-05 17:10 | ED_ITS ---
HPI - Animal Bite General: Chief Complaint: Animal Bite Stated Complaint: Dog bite Time Seen by Provider: 09/05/22 17:09 History of Present Illness: 42-year-old female comes in today with injury to the right inner thigh. Patient reports yesterday evening she was out for a walk when a unknown dog attacked her biting her in the right inner thigh. Patient went to urgent care today for treatment and evaluation. Since the dog was unknown patient was referred to the ER for further treatment with rabies postexposure prophylaxis series. Patient reports tetanus is up-to-date. Patient denies allergies to Augmentin. Patient reports no chronic medications. Patient appears nontoxic. Patient appears in no acute distress. Associated symptoms: Deny fever(s) Review of Systems General: Reports: 10 or more systems reviewed and unremarkable except in HPI and below Const: Denies: fever(s) Card: Denies: chest pain Resp: Denies: dyspnea Musc: Reports: extremity pain Skin/Breast: Reports: other (Bruising right inner thigh) [facility] ED PFSH: Medical History No pertinent family history No pertinent past medical history Social History Smoking and tobacco status: current every day smoker Physical Exam Const: COMMON NORMALS: alert HENMT: COMMON NORMALS: normocephalic HEAD & SCALP: normocephalic Neck/C-Spine: COMMON NORMALS: full ROM Resp: COMMON NORMALS: normal respiratory effort Cardio: COMMON NORMALS: regular rate RATE: regular rate Back/Pelvis: COMMON NORMALS: thoracic and lumbar spine normal to inspection Extremity: RIGHT LOWER EXTREMITY: Yes upper leg (Area of bruising approximately 5 cm circular, teeth barnes noted) Right upper leg: Yes inspection, Yes palpation and Yes neurovascular exam Neuro: SENSORIUM/ORIENTATION: Yes alert Skin: TRAUMA: puncture (Punctured area right thigh, surrounding bruising) Course Vital Signs: Vital signs: Vital Signs Temperature 98.1 F 09/05/22 16:59 Pulse Rate 76 09/05/22 16:59 Respiratory Rate 17 09/05/22 16:59 Blood Pressure 125/86 09/05/22 16:59 Pulse Oximetry 99 09/05/22 16:59 MDM - Animal Bite Medical Decision Making 42-year-old female comes in today for complaints of animal bite. Patient reports being bit by a dog she was unfamiliar with yesterday. Patient has a significant bruise with puncture barnes and teeth barnes to right inner thigh. Patient moves extremities well. Area is soft with mild tenderness. Distal pulses and sensation are intact. Differential diagnosis includes but not limited to animal bite, contusion, need for postexposure prophylaxis to rabies, prophylaxis antibiotics. Reviewed exam with patient and family member with recommendations for treatment with antibiotics and postexposure rabies prophylaxis treatment. Patient and family both report understanding. Discharge Plan Discharge Patient Disposition: Home Clinical Impression: Dog bite Qualifiers: Encounter type: initial encounter Qualified Code(s): W54.0XXA - Bitten by dog, initial encounter Condition: Stable Prescriptions: New amoxicillin-pot clavulanate 875-125 mg tablet 1 tab PO BID Qty: 13 0RF No Action prednisone 10 mg Tablet See Rx Instructions .ROUTE .COMPLEX Rx Instructions: 4 tabs po daily for 3 days 3 tabs po daily for 3 days 2 tabs po daily for 3 days 1 tab po daily for 3 days Aleve 220 mg Tablet 220 mg PO Q12H PRN (Reason: Pain) buspirone 15 mg tablet 15 mg PO BID PRN (Reason: Anxiety) Discharge Orders: Discharge ED (Routine); Ordered 09/05/22 Ordered By: Ascencion Bolton Referrals: Julián Yañez MD [Primary Care Provider] - Discharge Diet: Usual diet Discharge Activity: Increase activity as tolerated Patient Instructions: Rabies (ED) Activity Restrictions/Additional Instructions: Return on days 3, 7, and 14 to complete rabies vaccine series. Continue with amoxicillin?potassium clavulanate 1 tablet twice a day for total of 14 doses. Use acetaminophen and ibuprofen for pain. Use ice or heat for further pain relief. Follow-up with primary care as needed. Return to ER for worsening symptoms such as high fever greater than 100.4, increasing redness and swelling of the extremity, nausea and vomiting, or new concerns. Coding Level of Care Code ED Rework Machine Operator for Yung Melendez
[2022-09-05] MEDS: rabies vaccine 2.5 unit SDV IM (17:49)
[2022-09-05] MEDS: amoxicillin-clav 875-125 mg Tablet 1 TAB PO (17:50)
[2022-09-05 18:06] VITALS: BP 125/86; PULSE 76; RESP 17; TEMP 36.7; O2SAT 99
== END 2022-09-05 18:07 | disposition home or self-care (01) ==
PROVIDERS: Emergency Provider Nurse Practitioner Family; PCP Family Medicine
DX: S71.151A Open bite, right thigh, initial encounter (principal); W54.0XXA Bitten by dog, initial encounter; F17.210 Nicotine dependence, cigarettes, uncomplicated; Z20.3 Contact with and (suspected) exposure to rabies; Z29.14 Encounter for prophylactic rabies immune globulin; Z23 Encounter for immunization
CPT/HCPCS: 90375; 90471; 90675; 99284

== ENCOUNTER 2022-09-11 19:55 | Emergency (ER) | payer BC, MEDICAID, SELFPAY ==
[2022-09-11 20:04] VITALS: BP 137/88; PULSE 94; RESP 18; TEMP 36.5; O2SAT 96; BMI 27.8
[2022-09-11] MEDS: rabies vaccine 2.5 unit SDV IM (23:00)
[2022-09-11 23:33] VITALS: PULSE 92; RESP 16; O2SAT 94
--- NOTE | 2022-09-12 04:19 | W.ED.RECABL ---
HPI - Recheck/Abnormal Lab/Rx General: Chief Complaint: Recheck/Abnormal Lab/Rx Stated Complaint: second shot for rabies Time Seen by Provider: 09/11/22 22:18 Source: patient Mode of arrival: ambulatory Limitations: no limitations History of Present Illness: Patient presents emergency department today for her second rabies vaccination. Patient was originally seen on 09/05 for dog bite sustained to the right medial knee from an unknown dog. Patient received her first round of injections in the emergency department as well as starting Augmentin. Patient presents today wearing a knee brace. She still has quite a bit of dark purple and red bruising in the area but, no signs of skin cellulitis. Puncture wound is scabbed over without signs of any bleeding or purulent drainage. Patient is ambulatory in the ER. Review of Systems General: Reports: 10 or more systems reviewed and unremarkable except in HPI and below PFSH ED PFSH: Medical History No pertinent family history No pertinent past medical history Social History Smoking and tobacco status: current every day smoker Physical Exam Const: COMMON NORMALS: no acute distress, patient oriented x3 and alert HENMT: COMMON NORMALS: normocephalic, atraumatic and hearing grossly normal bilaterally HEAD & SCALP: normocephalic and atraumatic Eye: COMMON NORMALS: Equal, round and reactive pupils present, EOMs intact bilaterally and conjunctivae normal CONJUNCTIVA: Yes conjunctivae normal PUPIL: Yes Equal, round and reactive pupils present Neck/C-Spine: COMMON NORMALS: full ROM and no JVD Lymph: LYMPHATIC: no lymphadenopathy noted Resp: COMMON NORMALS: normal respiratory effort, No retractions and No use of accessory muscles Cardio: COMMON NORMALS: no JVD and regular rate RATE: regular rate Extremity: NARRATIVE EXTREMITY EXAM: Patient's right medial knee with significant purple and red bruising still present. There is a puncture wound that is currently scabbed over without signs of any recent bleeding. No significant swelling or draining of purulent material visible. Patient is independently ambulatory and weightbearing through the emergency department. Neuro: COMMON NORMALS: patient oriented x3 SENSORIUM/ORIENTATION: Yes alert Psych: COMMON NORMALS: mental status grossly normal, Normal thought process present, cooperative and normal affect THOUGHT PROCESS: Normal thought process present Skin: COMMON NORMALS: no rashes or lesions noted and turgor normal GENERAL SKIN EXAM: no rashes or lesions noted and turgor normal Course Vital Signs: Vital signs: Vital Signs Temperature 97.7 F 09/11/22 20:04 Pulse Rate 92 09/11/22 23:33 Respiratory Rate 16 09/11/22 23:33 Blood Pressure 137/88 09/11/22 20:04 Pulse Oximetry 94 09/11/22 23:33 Oxygen Delivery Me thod Room Air 09/11/22 20:04 MDM - Recheck/Abnormal Lab/Rx Medical Decision Making Patient presents emergency department today requesting her second rabies immunization. Patient's initial evaluation was on 09/03 so I am not entirely sure why her second immunization is coming so late as, per the CDC recommended immunization schedule should have only been 3 days after her first immunization. Still, patient was provided her immunization and was encouraged to continue taking her amoxicillin. She can still use the brace and should continue to monitor for concerns of infection. She was reminded of the typical immunization course for rabies and should try to adhere to the recommended schedule for treatment. Differential Diagnosis Likely encounter for wound recheck (Continued immunization schedule, cellulitis, abscess) Discharge Plan Discharge Patient Disposition: Home Clinical Impression: Rabies, need for prophylactic vaccination against Condition: Stable Prescriptions: No Action prednisone 10 mg Tablet See Rx Instructions .ROUTE .COMPLEX Rx Instructions: 4 tabs po daily for 3 days 3 tabs po daily for 3 days 2 tabs po daily for 3 days 1 tab po daily for 3 days Aleve 220 mg Tablet 220 mg PO Q12H PRN (Reason: Pain) buspirone 15 mg tablet 15 mg PO BID PRN (Reason: Anxiety) amoxicillin-pot clavulanate 875-125 mg tablet 1 tab PO BID Qty: 13 0RF Discharge Orders: Discharge ED (Routine); Ordered 09/11/22 Ordered By: Shiloh Celaya Referrals: Julián Yañez MD [Primary Care Provider] - Discharge Diet: Usual diet Discharge Activity: Increase activity as tolerated Patient Instructions: Rabies Vaccine (By injection) (Imovax Rabies, RabAvert) Activity Restrictions/Additional Instructions: Continue to take the antibiotics originally prescribed you. Continue to keep the wound clean with daily washes with warm water and mild soap. She will need to continue receiving the rabies vaccine in the series previously indicated from the original evaluation here in the emergency department. Patient should return on day #7 for her third injection. Coding Level of Care Code ED Electronic Specialist for Yung Melendez
== END 2022-09-11 23:30 | disposition home or self-care (01) ==
PROVIDERS: Emergency Provider Physician Assistant; PCP Family Medicine
DX: Z29.14 Encounter for prophylactic rabies immune globulin (principal); F17.210 Nicotine dependence, cigarettes, uncomplicated; Z20.3 Contact with and (suspected) exposure to rabies; Z23 Encounter for immunization
CPT/HCPCS: 90471; 90675; 99283

== ENCOUNTER 2022-09-19 18:21 | Emergency (ER) | payer BC, MEDICAID, SELFPAY ==
--- NOTE | 2022-09-19 18:31 | W.ED.ANIMALB ---
HPI - Animal Bite General: Chief Complaint: General Medical Stated Complaint: rabies vaccine Time Seen by Provider: 09/19/22 18:30 History of Present Illness: 42-year-old female comes in today for the last in the series of postexposure rabies prophylaxis treatment. Patient denies any complaints. Patient appears nontoxic. Patient moves all extremities well. Patient missed the second shot and received the second immunization on day 7 this is actually her third immunization which should be her last on day 14. Patient spouse states that they just missed the second 1. Associated symptoms: Deny headache(s) Review of Systems General: Reports: 10 or more systems reviewed and unremarkable except in HPI and below Card: Denies: chest pain Resp: Denies: dyspnea : Denies: difficulty voiding Musc: Denies: neck pain or back pain Skin/Breast: Reports: new lesions Neuro: Denies: headache(s) PFSH ED PFSH: Medical History No pertinent family history No pertinent past medical history Social History Smoking and tobacco status: current every day smoker Physical Exam Const: COMMON NORMALS: alert Neck/C-Spine: COMMON NORMALS: full ROM Resp: COMMON NORMALS: normal respiratory effort Cardio: COMMON NORMALS: regular rate RATE: regular rate Extremity: RIGHT LOWER EXTREMITY: Yes upper leg (Healing wound to the right inner thigh) Neuro: SENSORIUM/ORIENTATION: Yes alert Skin: NARRATIVE SKIN EXAM: Healing wounds to right inner thigh Course Vital Signs: Vital signs: Vital Signs Temperature 97.9 F 09/19/22 18:39 Pulse Rate 97 09/19/22 18:39 Respiratory Rate 16 09/19/22 18:39 Blood Pressure 102/78 09/19/22 18:39 Pulse Oximetry 97 09/19/22 18:39 Oxygen Delivery Me thod Room Air 09/19/22 18:39 MDM - Animal Bite Medical Decision Making Patient comes in for the last vaccine for her postexposure rabies prophylaxis treatment. Patient denies any complaints. Wounds are healing. No signs of significant infection or other injury is noted. Reviewed exam with patient with recommendations for follow-up or return to the ER. I recommend patient and spouse to follow-up with health department to find when he needs to take the last immunization which will most likely be in the week since they missed the second dose by 4 days. Differential Diagnosis Likely dog bite and rabies contact Discharge Plan Discharge Patient Disposition: Home Clinical Impression: Rabies, need for prophylactic vaccination against Dog bite Qualifiers: Encounter type: subsequent encounter Qualified Code(s): W54.0XXD - Bitten by dog, subsequent encounter Condition: Stable Prescriptions: No Action prednisone 10 mg Tablet See Rx Instructions .ROUTE .COMPLEX Rx Instructions: 4 tabs po daily for 3 days 3 tabs po daily for 3 days 2 tabs po daily for 3 days 1 tab po daily for 3 days Aleve 220 mg Tablet 220 mg PO Q12H PRN (Reason: Pain) buspirone 15 mg tablet 15 mg PO BID PRN (Reason: Anxiety) amoxicillin-pot clavulanate 875-125 mg tablet 1 tab PO BID Qty: 13 0RF Discharge Orders: Discharge ED (Routine); Ordered 09/19/22 Ordered By: Ascencion Bolton Referrals: Julián Yañez MD [Primary Care Provider] - Discharge Diet: Usual diet Discharge Activity: Increase activity as tolerated Patient Instructions: Rabies Vaccine (By injection) Activity Restrictions/Additional Instructions: Continue with routine care. Activity as tolerated. Follow-up with primary care for further instructions. Return to ED for new concerns or worsening symptoms. Coding Level of Care Code ED Material Reclaimer for Yung Melendez
[2022-09-19 18:39] VITALS: BP 102/78; PULSE 97; RESP 16; TEMP 36.6; O2SAT 97
[2022-09-19] MEDS: rabies vaccine 2.5 unit SDV IM (19:16)
== END 2022-09-19 19:22 | disposition home or self-care (01) ==
PROVIDERS: Emergency Provider Nurse Practitioner Family; PCP Family Medicine
DX: Z29.14 Encounter for prophylactic rabies immune globulin (principal); Z20.3 Contact with and (suspected) exposure to rabies; Z23 Encounter for immunization; F17.210 Nicotine dependence, cigarettes, uncomplicated; W54.0XXA Bitten by dog, initial encounter
CPT/HCPCS: 90471; 90675; 99283

== ENCOUNTER 2022-10-03 17:50 | Emergency (ER) | payer BC, MEDICAID, SELFPAY ==
[2022-10-03 17:53] VITALS: BP 120/74; PULSE 92; RESP 16; TEMP 36.6; O2SAT 96; BMI 27.8
--- NOTE | 2022-10-03 17:59 | W.ED.GENADLT ---
HPI - General Adult General: Chief complaint: General Medical Stated complaint: Last dose of rabies shot Time Seen by Provider: 10/03/22 17:56 Source: patient Mode of arrival: ambulatory Limitations: no limitations History of Present Illness: 42-year-old female who is here for her last rabies vaccine she was bit by dog little over 2 weeks ago. She has no other complaints at this time. Associated symptoms: Deny dyspnea, rash or vomiting Review of Systems Const: Denies: fever(s) Resp: Denies: dyspnea GI: Denies: vomiting Musc: Denies: neck pain Skin/Breast: Denies: rash Psych: Denies: anxiety PFSH ED PFSH: Medical History No pertinent family history No pertinent past medical history Social History Smoking and tobacco status: current every day smoker Physical Exam Const: COMMON NORMALS: no acute distress and patient oriented x3 HENMT: COMMON NORMALS: atraumatic HEAD & SCALP: atraumatic Eye: COMMON NORMALS: conjunctivae normal CONJUNCTIVA: Yes conjunctivae normal Neck/C-Spine: COMMON NORMALS: supple Chest: COMMONS NORMALS: normal inspection of the chest Resp: COMMON NORMALS: normal respiratory effort Cardio: COMMON NORMALS: regular rate RATE: regular rate Extremity: COMMON NORMALS: normal to inspection Neuro: COMMON NORMALS: patient oriented x3 Course Vital Signs: Vital signs: Vital Signs Temperature 97.8 F 10/03/22 17:53 Pulse Rate 92 10/03/22 17:53 Respiratory Rate 16 10/03/22 17:53 Blood Pressure 120/74 10/03/22 17:53 Pulse Oximetry 96 10/03/22 17:53 Oxygen Delivery Me thod Room Air 10/03/22 17:53 MDM - General Adult Medical Decision Making Patient presents here for rabies vaccination she has no other complaints did give her her last vaccine she is stable for discharge Discharge Plan Discharge Patient Disposition: Home Clinical Impression: Need for rabies vaccination Condition: Stable Prescriptions: No Action prednisone 10 mg Tablet See Rx Instructions .ROUTE .COMPLEX Rx Instructions: 4 tabs po daily for 3 days 3 tabs po daily for 3 days 2 tabs po daily for 3 days 1 tab po daily for 3 days Aleve 220 mg Tablet 220 mg PO Q12H PRN (Reason: Pain) buspirone 15 mg tablet 15 mg PO BID PRN (Reason: Anxiety) amoxicillin-pot clavulanate 875-125 mg tablet 1 tab PO BID Qty: 13 0RF Discharge Orders: Discharge ED (Routine); Ordered 10/03/22 Ordered By: Destiny Jin Referrals: Julián Yañez MD [Primary Care Provider] - 1-3 days Discharge Diet: Advance as tolerated Discharge Activity: Resume usual activity Patient Instructions: Rabies Vaccine (By injection) Coding Level of Care Code ED Assistant Guest Services Manager for Yung Melendez
[2022-10-03] MEDS: rabies vaccine 2.5 unit SDV IM (18:13)
== END 2022-10-03 18:19 | disposition home or self-care (01) ==
LOC: ER 18:11
PROVIDERS: Emergency Provider Emergency Medicine; PCP Family Medicine
DX: Z29.14 Encounter for prophylactic rabies immune globulin (principal); Z20.3 Contact with and (suspected) exposure to rabies; Z23 Encounter for immunization; F17.210 Nicotine dependence, cigarettes, uncomplicated
CPT/HCPCS: 90471; 90675; 99283

== ENCOUNTER 2022-10-10 07:10 | Emergency (ER) | payer BC, MEDICAID, SELFPAY ==
[2022-10-10 07:24] VITALS: BP 126/81; PULSE 79; RESP 14; TEMP 36.6; O2SAT 98; BMI 27.8
--- NOTE | 2022-10-10 07:40 | W.ED.NAVMDI ---
HPI - Nausea/Vomiting/Diarrhea General: Chief complaint: Nausea/Vomiting/Diarrhea Stated complaint: N/V/D Time Seen by Provider: 10/10/22 07:17 History of Present Illness: Patient is a 42-year-old female who comes to the ED with nausea and vomiting. Symptoms started this morning when she woke up. She states that she drank some water and then started developing nausea and vomiting. Patient says she has a history of gastritis and her current symptoms are just like her past episodes of gastritis. She reports a burning sensation in her stomach. She denies any fevers, chills, chest pain, abdominal pain, diarrhea, bladder or bowel symptoms. Associated nausea: Yes Associated symtoms: Reports nausea; Denies change in vision, chest pain, dysuria, fatigue, headache(s) or palpitations Review of Systems Const: Denies: fever(s), chills or fatigue Eyes: Denies: change in vision or eye discomfort ENMT: Denies: throat pain, odynophagia, nasal discharge or nasal congestion Card: Denies: chest pain, palpitations, edema, swelling of feet/ankles, dyspnea on exertion or orthopnea Resp: Denies: dyspnea, productive cough or non-productive cough GI: Reports: nausea, vomiting and heartburn (Burning pain in stomach); Denies: abdominal pain, diarrhea, constipation or hematochezia : Denies: flank pain, dysuria or hematuria Musc: Denies: neck pain, back pain or extremity swelling Skin/Breast: Denies: rash or new lesions Neuro: Denies: headache(s), numbness in extremities or weakness in extremities PFS ED PFSH: Medical History No pertinent family history No pertinent past medical history Social History Smoking and tobacco status: current every day smoker Physical Exam Const: COMMON NORMALS: patient oriented x3 HENMT: COMMON NORMALS: normocephalic HEAD & SCALP: normocephalic MOUTH: Normal oral and palatal mucosa present THROAT: posterior oropharynx normal and uvula midline Neck/C-Spine: COMMON NORMALS: supple GENERAL: Yes normal visual inspection Resp: COMMON NORMALS: normal respiratory effort, No retractions, No use of accessory muscles and clear to auscultation bilaterally AUSCULTATION: clear to auscultation bilaterally Cardio: COMMON NORMALS: regular rate, regular rhythm, S1 normal heart sound present, S2 normal heart sound present, No gallops present (Cardio), No clicks present (Cardio), No murmurs present (Cardio) and Peripheral pulses 2+ throughout RATE: regular rate RHYTHM: regular rhythm HEART SOUNDS: S1 normal heart sound present and S2 normal heart sound present PERIPHERAL PULSES: Peripheral pulses 2+ throughout GI: COMMON NORMALS: Normal to inspection, nondistended, normoactive bowel sounds present, Soft to palpation, non-tender and no masses PALPATION: Yes Soft to palpation : COMMON NORMALS: Yes no CVA tenderness BLADDER/KIDNEY EXAM: Yes no CVA tenderness Back/Pelvis: COMMON NORMALS: no CVA tenderness Extremity: COMMON NORMALS: normal to inspection Neuro: COMMON NORMALS: patient oriented x3 GAIT: Yes Normal gait present Skin: GENERAL SKIN EXAM: dry skin Course Vital Signs: Vital signs: Vital Signs Temperature 97.8 F 10/10/22 07:24 Pulse Rate 77 10/10/22 10:22 Respiratory Rate 16 10/10/22 10:22 Blood Pressure 111/79 10/10/22 10:22 Pulse Oximetry 98 10/10/22 10:22 Oxygen Delivery Me thod Room Air 10/10/22 07:56 MDM - Nausea/Vomiting/Diarrhea Medical Decision Making Patient is a 42-year-old female who comes to the ED with nausea and vomiting. Symptoms started this morning when she woke up. She states that she drank some water and then started developing nausea and vomiting. Patient says she has a history of gastritis and her current symptoms are just like her past episodes of gastritis. She reports a burning sensation in her stomach. She denies any fevers, chills, chest pain, abdominal pain, diarrhea, bladder or bowel symptoms. Vitals are stable. Patient appears nontoxic in no acute distress or pain. She has no abdominal tenderness to palpation. Rest of exam is benign. CBC, CMP, lipase and UA were all unremarkable. Patient was given 2 L of IV fluids, Pepcid, Zofran and Reglan and her symptoms improved. She was able to tolerate p.o. fluids here in the ED. She was stable for discharge home and diagnosed with gastritis. She was sent home with a prescription for Pepcid and Zofran. Told to follow-up with PCP within the next week for reevaluation. Return to ED precautions given. Patient understood and agreed with plan. Lab Data I reviewed the patient's lab results. 10/10/22 07:34 10/10/22 07:34 Laboratory Results WBC 5.9 10^3/uL (4.0-10.0) 10/10/22 07:34 RBC 5.11 10^6/uL (4.1-5.3) 10/10/22 07:34 Hgb 14.5 g/dL (11.5-15.3) 10/10/22 07:34 Hct 44.9 % (37.0-47.0) 10/10/22 07:34 MCV 87.9 fl (81-99) 10/10/22 07:34 MCH 28.4 pg (28.0-34.0) 10/10/22 07:34 MCHC 32.3 g/dL (30.0-36.0) 10/10/22 07:34 RDW 14.3 % (12.1-15.1) 10/10/22 07:34 Plt Count 317 10^3/cmm (130-400) 10/10/22 07:34 MPV 8.8 fL (7.4-10.4) 10/10/22 07:34 Neut % (Auto) 66.4 % 10/10/22 07:34 Lymph % (Auto) 22.1 % 10/10/22 07:34 [place] % (Auto) 8.3 % 10/10/22 07:34 Eos % (Auto) 2.4 % 10/10/22 07:34 Baso % (Auto) 0.5 % 10/10/22 07:34 Neut # (Auto) 3.90 10^3/uL (1.8-7.7) 10/10/22 07:34 Lymph # (Auto) 1.3 10^3/uL (0.8-4.8) 10/10/22 07:34 [place] # (Auto) 0.5 10^3/uL (0.2-0.9) 10/10/22 07:34 Eos # (Auto) 0.1 10^3/uL (0.0-0.8) 10/10/22 07:34 Baso # (Auto) 0.0 10^3/uL (0.0-0.1) 10/10/22 07:34 Nucleated RBC % (auto) 0 % 10/10/22 07:34 Nucleated RBCs # 0.0 /100WBC 10/10/22 07:34 Sodium 141 mmol/L (136-145) 10/10/22 07:34 Potassium 3.5 mmol/L (3.5-5.1) 10/10/22 07:34 Chloride 102 mmol/L (98-107) 10/10/22 07:34 Carbon Dioxide 24 mmol/L (22-29) 10/10/22 07:34 Anion Gap 18.5 (5-19) 10/10/22 07:34 BUN 12 mg/dL (6-20) 10/10/22 07:34 Creatinine 0.6 mg/dL (0.5-0.9) 10/10/22 07:34 GFR Calculation 110.7 mL/min (90-130) 10/10/22 07:34 Glucose 101 mg/dL (65-115) 10/10/22 07:34 Calculated Osmolality 292 mOsm/kg (285-295) 10/10/22 07:34 Calcium 9.6 mg/dL (8.5-10.5) 10/10/22 07:34 Total Bilirubin 0.4 mg/dL (0.15-1.2) 10/10/22 07:34 AST 27 U/L (0-32) 10/10/22 07:34 ALT 17 U/L (0-33) 10/10/22 07:34 Alkaline Phosphatase 146 U/L (35-105) H 10/10/22 07:34 Total Protein 7.8 g/dL (6.6-8.7) 10/10/22 07:34 Albumin 4.8 g/dL (3.5-5.2) 10/10/22 07:34 Globulin 3.0 g/dL (1.3-4.6) 10/10/22 07:34 Lipase 42 U/L (13-60) 10/10/22 07:34 HCG, Qual Negative (Negative) 10/10/22 07:34 Urine Color Yellow (Yellow) 10/10/22 08:33 Urine Appearance Clear (CLEAR) 10/10/22 08:33 Urine pH 6 (5-7) 10/10/22 08:33 Ur Specific [place] 1.010 (1.005-1.030) 10/10/22 08:33 Urine Protein Neg (Negative) 10/10/22 08:33 Urine Glucose (UA) Norm (Normal) 10/10/22 08:33 Urine Ketones 1+ (Negative) H 10/10/22 08:33 Urine Blood Neg (Negative) 10/10/22 08:33 Urine Nitrate Negative (Negative) 10/10/22 08:33 Urine Bilirubin Neg (Negative) 10/10/22 08:33 Urine Urobilinogen Norm mg/dL (Negative) 10/10/22 08:33 Ur Leukocyte Esterase Negative (Negative) 10/10/22 08:33 Discharge Plan Discharge Patient Disposition: Home Clinical Impression: Gastritis Condition: Stable Prescriptions: New Pepcid 20 mg tablet 20 mg PO BID 42 Days Qty: 84 0RF ondansetron 4 mg tablet,disintegrating 4 mg PO Q8H PRN (Reason: nausea and vomiting) Qty: 20 0RF No Action prednisone 10 mg Tablet See Rx Instructions .ROUTE .COMPLEX Rx Instructions: 4 tabs po daily for 3 days 3 tabs po daily for 3 days 2 tabs po daily for 3 days 1 tab po daily for 3 days Aleve 220 mg Tablet 220 mg PO Q12H PRN (Reason: Pain) buspirone 15 mg tablet 15 mg PO BID PRN (Reason: Anxiety) amoxicillin-pot clavulanate 875-125 mg tablet 1 tab PO BID Qty: 13 0RF Discharge Orders: Discharge ED (Routine); Ordered 10/10/22 Ordered By: Juan Thomas Referrals: Julián Yañez MD [Primary Care Provider] - Discharge Diet: Advance as tolerated and Clear Liquid Discharge Activity: Increase activity as tolerated Patient Instructions: Gastritis (ED) Activity Restrictions/Additional Instructions: Follow-up with medical provider as directed in the next 5 to 7 days for reevaluation. Take medications as prescribed. Clear liquid diet for the next 24 to 48 hours and slowly advance diet as tolerated. Return to the ER or your medical provider if condition worsens. Please read and understand discharge instructions. Thank you for choosing [facility] for your healthcare needs today. Please realize this is an emergency room and that we are providing you with a medical screening exam and this may not be complete and all inclusive of all the testing and or work up that you may need to determine your ailment or severity of your illness. It is very important that you follow up as instructed or that you return to the Emergency Department should you have concerns or if your condition changes or worsens in any way. 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
[2022-10-10 07:47] LABS: Basophils % 0.5 %; Eosinophils # 0.1 10^3/uL (0.0-0.8); Eosinophils % 2.4 %; Hematocrit 44.9 % (37.0-47.0); Hemoglobin 14.5 g/dL (11.5-15.3); Lymphocytes # 1.3 10^3/uL (0.8-4.8); Lymphocytes % 22.1 %; Mean Corpuscular HGB Conc 32.3 g/dL (30.0-36.0); Mean Corpuscular Hemoglobin 28.4 pg (28.0-34.0); Mean Corpuscular Volume 87.9 fl (81-99); Mean Platelet Volume 8.8 fL (7.4-10.4); Monocytes # 0.5 10^3/uL (0.2-0.9); Monocytes % 8.3 %; Neutrophils % 66.4 %; Nucleated Red Blood Cells % 0 %; Platelet Count 317 10^3/cmm (130-400); Red Blood Count 5.11 10^6/uL (4.1-5.3); Red Cell Distribution Width 14.3 % (12.1-15.1); White Blood Count 5.9 10^3/uL (4.0-10.0)
[2022-10-10] MEDS: famotidine 20 mg/2 mL INJ 40 MG IVP (07:49)
[2022-10-10] MEDS: ondansetron 2 mg/ML SDV 2 mL 4 MG IVP (07:49)
[2022-10-10] MEDS: sodium chloride 0.9% 1,000 ML 999 ML IV ×2 (07:49→08:54)
[2022-10-10 07:56] VITALS: PULSE 74; RESP 18; O2SAT 100
[2022-10-10 08:02] LABS: HCG, Serum Qual Negative (Negative)
[2022-10-10 08:11] LABS: Alanine Aminotransferase 17 U/L (0-33); Albumin Level 4.8 g/dL (3.5-5.2); Alkaline Phosphatase 146 U/L (35-105); Anion Gap 18.5 (5-19); Aspartate Amino Transferase 27 U/L (0-32); Blood Urea Nitrogen 12 mg/dL (6-20); Calcium 9.6 mg/dL (8.5-10.5); Carbon Dioxide 24 mmol/L (22-29); Chloride 102 mmol/L (98-107); Glomerular Filtration Rate 110.7 mL/min (90-130); Glucose 101 mg/dL (65-115); Lipase 42 U/L (13-60); Osmolality Calculated 292 mOsm/kg (285-295); Potassium 3.5 mmol/L (3.5-5.1); Sodium 141 mmol/L (136-145); Total Bilirubin 0.4 mg/dL (0.15-1.2); Total Protein 7.8 g/dL (6.6-8.7)
[2022-10-10 08:36] LABS: Add Urine Microscopic? NO; Charge for UA Resulting for Rev
[2022-10-10 08:40] VITALS: BP 117/78; PULSE 63; RESP 16; O2SAT 99
[2022-10-10 08:46] LABS: Urine Appearance Clear (CLEAR); Urine Color Yellow (Yellow); pH Urine 6 (5-7)
[2022-10-10 08:47] LABS: Bilirubin Urine Neg (Negative); Blood Urine Neg (Negative); Glucose Urine UA Norm (Normal); Ketones Urine 1+ (Negative); Leukocyte Esterase Urine Negative (Negative); Nitrate Urine Negative (Negative); Protein Urine Neg (Negative); Urobilinogen Urine Norm (Negative)
[2022-10-10] MEDS: metoclopramide 5 mg/mL SDV 2 mL 10 MG IVP (08:54)
--- NOTE | 2022-10-10 09:24 | PC.NURSE ---
pt given water and crackers for po challenge. crackers consumed. pt denies complaints at this time.
[2022-10-10 10:05] VITALS: BP 111/79; PULSE 77; RESP 16; O2SAT 98
[2022-10-10 10:22] VITALS: BP 111/79; PULSE 77; RESP 16; O2SAT 98
== END 2022-10-10 10:23 | disposition home or self-care (01) ==
PROVIDERS: Emergency Provider Physician Assistant; PCP Family Medicine
DX: K29.70 Gastritis, unspecified, without bleeding (principal); F17.210 Nicotine dependence, cigarettes, uncomplicated
CPT/HCPCS: 80053; 81003; 83690; 84703; 85025; 96361; 96374; 96375; 99284; J2405; J2765; J3490; J7030

== ENCOUNTER 2022-11-10 14:38 | Emergency (ER) | payer BC, MEDICAID, SELFPAY ==
[2022-11-10 14:43] VITALS: BP 115/81; PULSE 74; RESP 18; TEMP 36.1; O2SAT 100; BMI 26.8
--- NOTE | 2022-11-10 14:52 | W.ED.SYNCOPE ---
HPI - Syncope General: Chief Complaint: Syncope Stated Complaint: AMS Time Seen by Provider: 11/10/22 14:39 Source: patient and EMS Mode of arrival: EMS Limitations: no limitations and altered mental status History of Present Illness: 42-year-old female who states that she had went for a walk today states that she felt like she got overheated. She states that she got home she had felt weak and had a syncopal event. Patient denies any chest pain. She states that since fluids she is feeling slightly improved but still fairly is very weak. Associated symptoms: Deny abdominal pain, chest pain, fever(s), headache(s) or nausea Review of Systems Const: Reports: fatigue and malaise; Denies: fever(s), chills, body aches or change in appetite ENMT: Denies: throat pain or dental pain Card: Reports: syncope; Denies: chest pain Resp: Denies: dyspnea GI: Denies: abdominal pain, nausea, vomiting or diarrhea Musc: Denies: neck pain or back pain Skin/Breast: Denies: rash Neuro: Denies: headache(s) PFSH ED PFSH: Medical History No pertinent family history No pertinent past medical history Social History Smoking and tobacco status: current every day smoker Physical Exam Const: COMMON NORMALS: no acute distress, patient oriented x3 and healthy appearing HENMT: COMMON NORMALS: normocephalic and atraumatic HEAD & SCALP: normocephalic and atraumatic Eye: COMMON NORMALS: Equal, round and reactive pupils present and EOMs intact bilaterally PUPIL: Yes Equal, round and reactive pupils present Neck/C-Spine: COMMON NORMALS: full ROM and supple Chest: COMMONS NORMALS: normal inspection of the chest and normal palpation of entire chest wall Resp: COMMON NORMALS: normal respiratory effort, No retractions, No use of accessory muscles and clear to auscultation bilaterally AUSCULTATION: clear to auscultation bilaterally Cardio: COMMON NORMALS: regular rate, regular rhythm and No murmurs present (Cardio) RATE: regular rate RHYTHM: regular rhythm GI: COMMON NORMALS: Normal to inspection, nondistended, normoactive bowel sounds present, Soft to palpation, non-tender and no masses PALPATION: Yes Soft to palpation Extremity: COMMON NORMALS: normal to inspection and full ROM Neuro: COMMON NORMALS: patient oriented x3, moves all extremities and no focal motor deficits Psych: COMMON NORMALS: mental status grossly normal, Normal thought process present and cooperative THOUGHT PROCESS: Normal thought process present Skin: COMMON NORMALS: no rashes or lesions noted and no wounds GENERAL SKIN EXAM: no rashes or lesions noted Course Vital Signs: Vital signs: Vital Signs Temperature 97.0 F L 11/10/22 14:43 Pulse Rate 74 11/10/22 14:43 Respiratory Rate 20 H 11/10/22 15:02 Blood Pressure 103/77 11/10/22 15:02 Pulse Oximetry 100 11/10/22 14:43 Oxygen Delivery Me thod Room Air 11/10/22 14:43 MDM - Syncope Medical Decision Making Patient presents here after a syncopal event likely from being intoxicated along with a heat exposure patient is well-appearing here she feels much improved after being out of the heat she is able ambulate without any difficulty she is stable for discharge she is to follow-up with her PCP and return if worsening Medical Records I reviewed the patient's medical records. Lab Data I reviewed the patient's lab results. 11/10/22 14:51 11/10/22 14:51 Laboratory Results WBC 5.9 10^3/uL (4.0-10.0) 11/10/22 14:51 RBC 4.09 10^6/uL (4.1-5.3) L 11/10/22 14:51 Hgb 11.9 g/dL (11.5-15.3) 11/10/22 14:51 Hct 35.6 % (37.0-47.0) L 11/10/22 14:51 MCV 87.0 fl (81-99) 11/10/22 14:51 MCH 29.1 pg (28.0-34.0) 11/10/22 14:51 MCHC 33.4 g/dL (30.0-36.0) 11/10/22 14:51 RDW 14.4 % (12.1-15.1) 11/10/22 14:51 Plt Count 251 10^3/cmm (130-400) 11/10/22 14:51 MPV 9.1 fL (7.4-10.4) 11/10/22 14:51 Neut % (Auto) 73.4 % 11/10/22 14:51 Lymph % (Auto) 20.0 % 11/10/22 14:51 [place] % (Auto) 4.9 % 11/10/22 14:51 Eos % (Auto) 0.7 % 11/10/22 14:51 Baso % (Auto) 0.7 % 11/10/22 14:51 Neut # (Auto) 4.36 10^3/uL (1.8-7.7) 11/10/22 14:51 Lymph # (Auto) 1.2 10^3/uL (0.8-4.8) 11/10/22 14:51 [place] # (Auto) 0.3 10^3/uL (0.2-0.9) 11/10/22 14:51 Eos # (Auto) 0.0 10^3/uL (0.0-0.8) 11/10/22 14:51 Baso # (Auto) 0.0 10^3/uL (0.0-0.1) 11/10/22 14:51 Nucleated RBC % (auto) 0 % 11/10/22 14:51 Nucleated RBCs # 0.0 /100WBC 11/10/22 14:51 Sodium 145 mmol/L (136-145) 11/10/22 14:51 Potassium 3.5 mmol/L (3.5-5.1) 11/10/22 14:51 Chloride 110 mmol/L (98-107) H 11/10/22 14:51 Carbon Dioxide 20 mmol/L (22-29) L 11/10/22 14:51 Anion Gap 18.5 (5-19) 11/10/22 14:51 BUN 9 mg/dL (6-20) 11/10/22 14:51 Creatinine 0.7 mg/dL (0.5-0.9) 11/10/22 14:51 GFR Calculation 92.7 mL/min (90-130) 11/10/22 14:51 Glucose 97 mg/dL (65-115) 11/10/22 14:51 Calculated Osmolality 299 mOsm/kg (285-295) H 11/10/22 14:51 Calcium 7.7 mg/dL (8.5-10.5) L 11/10/22 14:51 Total Bilirubin 0.3 mg/dL (0.15-1.2) 11/10/22 14:51 AST 18 U/L (0-32) 11/10/22 14:51 ALT 13 U/L (0-33) 11/10/22 14:51 Alkaline Phosphatase 95 U/L (35-105) 11/10/22 14:51 Total Protein 5.8 g/dL (6.6-8.7) L 11/10/22 14:51 Albumin 3.8 g/dL (3.5-5.2) 11/10/22 14:51 Globulin 2.0 g/dL (1.3-4.6) 11/10/22 14:51 HCG, Qual Negative (Negative) 11/10/22 15:32 Salicylates < 0.3 mg/dL (3-10) L 11/10/22 14:51 Acetaminophen < 5.0 ug/mL (10-30) L 11/10/22 14:51 Ethyl Alcohol 191 mg/dL (0-10) H 11/10/22 14:51 EKG Data EKG 1: I personally reviewed and interpreted this EKG as follows: EKG interpretation date: 11/10/22 EKG interpretation time: 15:34 Interpretation: nsr hr [address] or t wave abormalities qrs 84 qtc 446 Discharge Plan Discharge Patient Disposition: Home Clinical Impression: Syncope, Heat exposure, Alcohol intoxication Condition: Stable Prescriptions: No Action prednisone 10 mg Tablet See Rx Instructions .ROUTE .COMPLEX Rx Instructions: 4 tabs po daily for 3 days 3 tabs po daily for 3 days 2 tabs po daily for 3 days 1 tab po daily for 3 days Aleve 220 mg Tablet 220 mg PO Q12H PRN (Reason: Pain) buspirone 15 mg tablet 15 mg PO BID PRN (Reason: Anxiety) Pepcid 20 mg tablet 20 mg PO BID 42 Days Qty: 84 0RF ondansetron 4 mg tablet,disintegrating 4 mg PO Q8H PRN (Reason: nausea and vomiting) Qty: 20 0RF amoxicillin-pot clavulanate 875-125 mg tablet 1 tab PO BID Qty: 13 0RF Discharge Orders: Discharge ED (Routine); Ordered 11/10/22 Ordered By: Destiny Jin Referrals: Julián Yañez MD [Primary Care Provider] - 1-3 days Discharge Diet: Advance as tolerated Discharge Activity: Resume usual activity Patient Instructions: Syncope (ED), Alcohol Intoxication (ED) Coding Level of Care Code 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
[2022-11-10 14:56] LABS: Basophils % 0.7 %; Eosinophils % 0.7 %; Hematocrit 35.6 % (37.0-47.0); Hemoglobin 11.9 g/dL (11.5-15.3); Lymphocytes # 1.2 10^3/uL (0.8-4.8); Mean Corpuscular HGB Conc 33.4 g/dL (30.0-36.0); Mean Corpuscular Hemoglobin 29.1 pg (28.0-34.0); Mean Platelet Volume 9.1 fL (7.4-10.4); Monocytes # 0.3 10^3/uL (0.2-0.9); Monocytes % 4.9 %; Neutrophils # 4.36 10^3/uL (1.8-7.7); Neutrophils % 73.4 %; Nucleated Red Blood Cells % 0 %; Platelet Count 251 10^3/cmm (130-400); Red Blood Count 4.09 10^6/uL (4.1-5.3); Red Cell Distribution Width 14.4 % (12.1-15.1); White Blood Count 5.9 10^3/uL (4.0-10.0)
[2022-11-10] MEDS: sodium chloride 0.9% 1,000 ML 999 ML IV (15:00)
[2022-11-10] MEDS: ondansetron 2 mg/ML SDV 2 mL 4 MG IVP (15:00)
[2022-11-10 15:02] VITALS: BP 103/77; RESP 20
[2022-11-10 15:16] LABS: Alanine Aminotransferase 13 U/L (0-33); Albumin Level 3.8 g/dL (3.5-5.2); Alcohol Level 191 mg/dL (0-10); Alkaline Phosphatase 95 U/L (35-105); Anion Gap 18.5 (5-19); Aspartate Amino Transferase 18 U/L (0-32); Blood Urea Nitrogen 9 mg/dL (6-20); Calcium 7.7 mg/dL (8.5-10.5); Carbon Dioxide 20 mmol/L (22-29); Chloride 110 mmol/L (98-107); Glomerular Filtration Rate 92.7 mL/min (90-130); Glucose 97 mg/dL (65-115); Osmolality Calculated 299 mOsm/kg (285-295); Potassium 3.5 mmol/L (3.5-5.1); Sodium 145 mmol/L (136-145); Total Bilirubin 0.3 mg/dL (0.15-1.2); Total Protein 5.8 g/dL (6.6-8.7)
[2022-11-10 15:20] LABS: Acetaminophen < 5.0 ug/mL (10-30); Salicylate < 0.3 mg/dL (3-10)
--- NOTE | 2022-11-10 15:34 | ECG_ITS ---
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 Measurements Intervals [place] Rate: 76 P: 71 NC: 162 QRS: 50 QRSD: 84 T: 52 QT: 415 QTc: 469 Interpretive Statements SINUS RHYTHM Compared to ECG 10/30/2021 09:22:14 T-wave abnormality no longer present Electronically Signed On 11-10-2022 19:23:36 CDT by Beltran Lawrence M.D. [id number]
[2022-11-10 15:53] LABS: HCG Qualitative Urine. Negative (Negative)
[2022-11-10 16:59] LABS: Add Urine Microscopic? NO; Charge for UA Resulting for Rev
[2022-11-10 17:07] LABS: Urine Appearance Clear (CLEAR); Urine Color Light yellow (Yellow)
[2022-11-10 17:08] LABS: Bilirubin Urine Neg (Negative); Blood Urine Neg (Negative); Glucose Urine UA Norm (Normal); Ketones Urine 1+ (Negative); Leukocyte Esterase Urine Negative (Negative); Nitrate Urine Negative (Negative); Protein Urine Neg (Negative); Sulfosalicylic Acid Urine Negative (Negative); Urobilinogen Urine Norm (Negative); pH Urine 8 (5-7)
[2022-11-10 17:09] LABS: Amphetamines Screen Urine Negative (Negative); Barbiturates Screen Urine Negative (Negative); Benzodiazepines Screen Urine Negative (Negative); Cocaine Screen Urine Negative (Negative); Opiate Screen Urine Negative (Negative); PCP Screen Urine Negative (Negative); THC Screen Urine Positive (Negative)
== END 2022-11-10 16:09 | disposition home or self-care (01) ==
PROVIDERS: Emergency Provider Emergency Medicine; PCP Family Medicine
DX: R55 Syncope and collapse (principal); T67.9XXA Effect of heat and light, unspecified, initial encounter; X30.XXXA Exposure to excessive natural heat, initial encounter; F10.129 Alcohol abuse with intoxication, unspecified; Y90.6 Blood alcohol level of 120-199 mg/100 ml; F17.210 Nicotine dependence, cigarettes, uncomplicated
CPT/HCPCS: 80053; 80306; 80307; 81003; 81025; 85025; 93005; 96374; 99284; J2405; J7030

== ENCOUNTER 2023-02-16 13:11 | Emergency (ER) | payer BC, MEDICAID, SELFPAY ==
[2023-02-16 13:17] VITALS: BP 116/73; PULSE 75; RESP 16; O2SAT 97; BMI 26.4
--- NOTE | 2023-02-16 13:25 | W.ED.ANXIETY ---
HPI - Anxiety General: Chief Complaint: Anxiety Stated Complaint: anxiety Time Seen by Provider: 02/16/23 13:17 Source: patient and EMS Mode of arrival: EMS Limitations: no limitations History of Present Illness: Patient is a 42-year-old female presents to ED today via EMS for complaints of anxiety/panic attack. Patient states she had gotten home from the store when her began yelling at her triggering a panic attack. Patient states she has a longstanding history of anxiety and panic attacks. She states one of her children called an ambulance as patient was hyperventilating. Upon arrival EMS states patient was hyperventilating. They administered 1 Mg IV Ativan and upon arrival to the emergency department she is completely asymptomatic with normal vital signs. 12 leads from EMS are normal. Patient states her anxiety is normally controlled without medication. She did not like/tolerate medication side effects when she was on them for anxiety. She did have services at [facility] but states she was dismissed due to frequency of no-show appointments. Patient does have a history of alcohol abuse. She states she had 3 shooters earlier this morning. MD complaint: anxiety Onset (ago): hour(s) Symptoms: dyspnea, palpitations, perioral numbness/tingling and sense of impending doom Severity: moderate Quality: improving Place: home History of similar episodes: Yes Provoking factors: emotional stress Relieving factors: other (IV ativan) Associated symptoms: Deny chest pain, chills, confusion, fever(s), headache(s), malaise, nausea, palpitations, syncope or vomiting Review of Systems General: Reports: Other (Patient asymptomatic upon arrival) Const: Denies: fever(s), chills, body aches, fatigue or malaise Card: Denies: chest pain, palpitations, irregular heart rhythm, edema, lightheadedness, syncope, pre-syncope or dyspnea on exertion Resp: Denies: dyspnea GI: Denies: nausea or vomiting Skin/Breast: Denies: rash Neuro: Denies: headache(s), numbness in extremities, weakness in extremities, sensory changes, difficulty walking, dizziness or confusion Psych: Reports: anxiety; Denies: suicidal ideation or homicidal ideation [facility] ED PFSH: Medical History No pertinent family history No pertinent past medical history Social History Smoking and tobacco status: current every day smoker Physical Exam Const: COMMON NORMALS: no acute distress, average body habitus, patient oriented x3, no limitations, healthy appearing, alert and well nourished GENERAL APPEARANCE: cooperative ORIENTATION/CONSCIOUSNESS: Yes awake, Yes oriented to person, Yes oriented to place and Yes oriented to time HENMT: COMMON NORMALS: normocephalic and atraumatic HEAD & SCALP: normal to inspection, normocephalic and atraumatic Eye: GENERAL EYE: appearance normal, both eyes and all related structures Neck/C-Spine: COMMON NORMALS: full ROM, no lymphadenopathy, supple and no meningeal signs Chest: COMMONS NORMALS: normal inspection of the chest Resp: COMMON NORMALS: normal respiratory effort and clear to auscultation bilaterally AUSCULTATION: clear to auscultation bilaterally Cardio: COMMON NORMALS: regular rate and regular rhythm RATE: regular rate RHYTHM: regular rhythm GI: COMMON NORMALS: Normal to inspection, nondistended, normoactive bowel sounds present, Soft to palpation, non-tender, No hepatosplenomegaly present and no masses PALPATION: Yes Soft to palpation and Yes No hepatosplenomegaly present : COMMON NORMALS: Yes no CVA tenderness BLADDER/KIDNEY EXAM: Yes no CVA tenderness Back/Pelvis: COMMON NORMALS: no CVA tenderness and thoracic and lumbar spine normal to inspection Extremity: COMMON NORMALS: normal to inspection GENERAL: Yes normal exam except as noted Neuro: MICHELL COMA SCALE: document GCS findings [place] coma scale eye opening: Spontaneous Michell coma scale verbal response: Orientated Michell coma scale motor response: Obey commands Michell coma scale total score: 15 COMMON NORMALS: patient oriented x3, CN's II-XII intact bilaterally, moves all extremities, no sensory deficits noted and gait normal SENSORIUM/ORIENTATION: Yes alert, Yes oriented to person, Yes oriented to place and Yes oriented to time MENINGEAL SIGNS: Yes no meningeal signs Skin: COMMON NORMALS: no rashes or lesions noted GENERAL SKIN EXAM: no rashes or lesions noted Course Vital Signs: Vital signs: Vital Signs Pulse Rate 75 02/16/23 13:17 Respiratory Rate 16 02/16/23 13:17 Blood Pressure 116/73 02/16/23 13:17 Pulse Oximetry 97 02/16/23 13:17 Oxygen Delivery Me thod Room Air 02/16/23 13:17 MDM - Anxiety Medical Decision Making Patient here via EMS following a panic attack. She was given 1 Mg IV Ativan in route and arrives to the emergency department completely asymptomatic. Vital signs are normal. Twelve-lead EKG from EMS is normal. She does admit to some alcohol use earlier this morning. Patient's gait is steady here. Speech is clear. Patient has decision making capacity. There is nothing further that needs to be done from an emergency standpoint. She does not wish hospitalization. She is not acutely psychotic or suicidal or homicidal. She is stable for discharge at this time. Differential Diagnosis Likely panic disorder and acute anxiety No radiology studies performed this visit Discharge Plan Discharge Patient Disposition: Home Clinical Impression: Panic attack Condition: Stable Prescriptions: No Action prednisone 10 mg Tablet See Rx Instructions .ROUTE .COMPLEX Rx Instructions: 4 tabs po daily for 3 days 3 tabs po daily for 3 days 2 tabs po daily for 3 days 1 tab po daily for 3 days Aleve 220 mg Tablet 220 mg PO Q12H PRN (Reason: Pain) buspirone 15 mg tablet 15 mg PO BID PRN (Reason: Anxiety) ondansetron 4 mg tablet,disintegrating 4 mg PO Q8H PRN (Reason: nausea and vomiting) Qty: 20 0RF amoxicillin-pot clavulanate 875-125 mg tablet 1 tab PO BID Qty: 13 0RF Discharge Orders: Discharge ED (Routine); Ordered 02/16/23 Ordered By: Lilibeth Jaeger Referrals: Julián Yañez MD [Primary Care Provider] - Patient Instructions: Anxiety (ED), Panic Attack Coding Level of Care Code ED Test Lab Technician for Yung Melendez
== END 2023-02-16 14:30 | disposition home or self-care (01) ==
PROVIDERS: Emergency Provider Physician Assistant; PCP Family Medicine
DX: F41.0 Panic disorder [episodic paroxysmal anxiety] (principal); F17.210 Nicotine dependence, cigarettes, uncomplicated
CPT/HCPCS: 99283

== ENCOUNTER 2023-06-25 14:15 | Emergency (ER) | payer BC, MEDICAID, SELFPAY ==
--- NOTE | 2023-06-25 14:16 | XR_ITS ---
WS: [id number] Right shoulder, 3 views, 06/25/2023 Clinical Data: injury Comparison: Right shoulder, 08/22/2022 Findings: No fractures or dislocations are seen. The AC joint is normal. The adjacent right clavicle, right sca pula and ribs are normal. The soft tissues are unremarkable. Impression: Negative right shoulder.
[2023-06-25 14:35] VITALS: BP 131/88; PULSE 89; RESP 14; TEMP 36.6; O2SAT 98
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
== END 2023-06-25 14:51 | disposition home or self-care (01) ==
PROVIDERS: Emergency Provider Physician Assistant; PCP Family Medicine
DX: S49.91XA Unspecified injury of right shoulder and upper arm, initial encounter (principal); Z72.0 Tobacco use; Y04.2XXA Assault by strike against or bumped into by another person, initial encounter; Y07.010 Husband, current, perpetrator of maltreatment and neglect
CPT/HCPCS: 73030; 99283

== ENCOUNTER 2023-07-09 12:01 | Emergency (ER) | payer BC, MEDICAID, SELFPAY ==
[2023-07-09 12:02] VITALS: BP 133/77; PULSE 116; RESP 18; TEMP 36.7; O2SAT 94; BMI 28.3
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
[2023-07-09 12:48] LABS: Basophils % 0.4 %; Eosinophils # 0.1 10^3/uL (0.0-0.8); Eosinophils % 1.9 %; Hematocrit 38.8 % (36-47); Lymphocytes # 1.8 10^3/uL (0.8-4.8); Lymphocytes % 24.1 %; Mean Corpuscular HGB Conc 34.5 g/dL (30-55); Mean Corpuscular Hemoglobin 30.7 pg (27-33); Mean Corpuscular Volume 88.8 fl (85-98); Mean Platelet Volume 8.9 fL (7.4-10.4); Monocytes # 0.4 10^3/uL (0.2-0.9); Monocytes % 5.9 %; Neutrophils # 4.91 10^3/uL (1.8-7.7); Neutrophils % 67.4 %; Nucleated Red Blood Cells % 0 %; Platelet Count 265 10^3/cmm (157-399); Red Blood Count 4.37 10^6/uL (3.85-5.65); Red Cell Distribution Width 13.9 % (12.1-15.1); White Blood Count 7.29 10^3/uL (3.29-11.43)
--- NOTE | 2023-07-09 12:52 | PC.SOCIAL ---
Transport; Transport resources added to patient's discharge plan. Called Crisis stabilization to see if a worker could come and speak with patient in ER or if we should recommend patient come down after d/c, Marisa reports that we should send patient down after d/c. Updated US Efraín.
[2023-07-09 13:00] LABS: Add Urine Culture? No; Add Urine Microscopic? YES; Bacteria Urine 2+ /hpf; Bilirubin Urine Neg (Negative); Blood Urine Neg (Negative); Glucose Urine UA Norm (Normal); Ketones Urine Negative (Negative); Leukocyte Esterase Urine Negative (Negative); Nitrate Urine Negative (Negative); Protein Urine Neg (Negative); RBC Urine 0-4 /hpf (0-2); Squamous Epithelial Cell Urine 25-40 /hpf (0-5); Urine Appearance Hazy (CLEAR); Urine Color Yellow (Yellow); Urobilinogen Urine Norm (Negative); pH Urine 5 (5-7)
[2023-07-09 13:03] LABS: Amphetamines Screen Urine Negative (Negative); Barbiturates Screen Urine Negative (Negative); Benzodiazepines Screen Urine Negative (Negative); Cocaine Screen Urine Negative (Negative); Opiate Screen Urine Negative (Negative); PCP Screen Urine Negative (Negative); THC Screen Urine Positive (Negative)
[2023-07-09 13:08] LABS: Alanine Aminotransferase 16 U/L (0-33); Alcohol Level 211 mg/dL (0-10); Alkaline Phosphatase 105 U/L (35-105); Anion Gap 16.6 (5-19); Aspartate Amino Transferase 18 U/L (0-32); Blood Urea Nitrogen 11 mg/dL (6-20); Calcium 8.1 mg/dL (8.5-10.5); Carbon Dioxide 21 mmol/L (22-29); Chloride 106 mmol/L (98-107); Globulin 2.4 g/dL (1.3-4.6); Glomerular Filtration Rate 110.2 mL/min (90-130); Glucose 84 mg/dL (65-115); Osmolality Calculated 289 mOsm/kg (285-295); Potassium 3.6 mmol/L (3.5-5.1); Sodium 140 mmol/L (136-145); Total Bilirubin 0.2 mg/dL (0.15-1.2); Total Protein 6.4 g/dL (6.6-8.7)
[2023-07-09 13:09] LABS: Acetaminophen < 5.0 ug/mL (10-30); Salicylate < 0.3 mg/dL (3-10)
--- NOTE | 2023-07-09 14:29 | PC.NURSE ---
PATIENT GIVEN FOOD AND AMBULATED DOWN THE [facility]ORRES. PATIENT STABLE WHILE WALKING.
== END 2023-07-09 14:42 | disposition home or self-care (01) ==
PROVIDERS: Emergency Provider Emergency Medicine; PCP Family Medicine
DX: F32.A Depression, unspecified (principal); F41.9 Anxiety disorder, unspecified; F10.90 Alcohol use, unspecified, uncomplicated; Z72.0 Tobacco use
CPT/HCPCS: 36415; 80053; 80306; 80307; 81001; 85025; 99283

== ENCOUNTER 2023-07-10 14:34 | Emergency (ER) | payer BC, MEDICAID, SELFPAY ==
[2023-07-10 14:40] VITALS: BP 126/70; PULSE 85; RESP 18; TEMP 36.9; O2SAT 98
--- NOTE | 2023-07-10 15:23 | ED.C_ITS ---
Documented by User: [email or web address] Haynes 07/10/23 15:35 HPI - Psych General: Chief Complaint: Psychiatric Symptoms Stated Complaint: MHE Time Seen by Provider: 07/10/23 14:49 Source: patient Mode of arrival: ambulatory Limitations: no limitations History of Present Illness: Patient is a 43-year-old female with past medical history of alcohol abuse and PTSD who presents to the emergency department via privately owned vehicle complaining of anxiety and associated alcohol abuse today. Patient reports that she has been trying to get into [facility] [place] for the past year but has been unable to do so due to lack of transportation or cellular device. Today, she states she began drinking around 0500 due to having a nightmare last night associated with her PTSD. She states that she is not on any medications currently and has not seen her primary care provider for the past year. In the past, she states she was on BuSpar for her PTSD as prescribed from [facility] [place]. She elaborates to me that her primary goal is to get in with [facility] because she is tired of dealing with her nightmares and increased anxiety. She also wants help to stop drinking alcohol. She denies any other drug use. She denies any thoughts of wanting to harm herself or others, and states that even if she wanted to she would not because she has kids and she does not want to do that to them. She denies any prior history of suicide attempts or self-harm. She reports some associated palpitations which she believes is from her alcohol use, but otherwise denies any other symptoms. Onset (ago): day(s) Duration: constant History of same: Yes Relieving factors: none Exacerbating factors: alcohol Context: recent alcohol abuse Associated psychiatric symptoms: none Associated symptoms: Deny auditory hallucinations, visual hallucinations, homicidal ideation or suicidal ideation Review of Systems General: Reports: 10 or more systems reviewed and unremarkable except in HPI and below Const: Denies: fever(s), chills or fatigue Eyes: Denies: change in vision ENMT: Denies: throat pain, ear or mastoid pain or nasal discharge Card: Denies: chest pain, palpitations, swelling of feet/ankles or lightheadedness Resp: Denies: dyspnea, productive cough or wheezing GI: Denies: abdominal pain, nausea, vomiting, diarrhea or constipation : Denies: flank pain, difficulty voiding, dysuria or urinary frequency Musc: Denies: neck pain, back pain or joint pain Skin/Breast: Denies: rash Neuro: Denies: headache(s), numbness in extremities, weakness in extremities, sensory changes, lack of coordination, dizziness, confusion, behavioral changes or Slurred speech present Psych: Reports: anxiety and other (Alcohol abuse); Denies: panic attacks, loss of interest, difficulty concentrating, visual hallucinations, auditory hallucinations, tactile hallucinations, suicidal ideation or homicidal ideation PFS ED PFSH: Medical History No pertinent past medical history No pertinent family history Social History Smoking and tobacco/nicotine status: current every day tobacco/nicotine user Physical Exam Const: COMMON NORMALS: no acute distress, patient oriented x3, no limitations and alert GENERAL APPEARANCE: cooperative, comfortable, well developed, odor of alcohol detected and other (Intoxicated) ORIENTATION/CONSCIOUSNESS: Yes awake, Yes oriented to person, Yes oriented to place and Yes oriented to time HENMT: COMMON NORMALS: normocephalic, atraumatic and hearing grossly normal bilaterally HEAD & SCALP: normocephalic and atraumatic Eye: COMMON NORMALS: Equal, round and reactive pupils present, EOMs intact bilaterally and conjunctivae normal CONJUNCTIVA: Yes conjunctivae normal PUPIL: Yes Equal, round and reactive pupils present Neck/C-Spine: COMMON NORMALS: full ROM, supple and no JVD Resp: COMMON NORMALS: normal respiratory effort, No retractions, No use of accessory muscles and clear to auscultation bilaterally AUSCULTATION: clear to auscultation bilaterally Cardio: COMMON NORMALS: no JVD, regular rate, regular rhythm, No clicks present (Cardio), No murmurs present (Cardio) and No rub (Cardio) RATE: regular rate RHYTHM: regular rhythm GI: COMMON NORMALS: Normal to inspection, nondistended, normoactive bowel sounds present, Soft to palpation and non-tender PALPATION: Yes Soft to palpation RECTAL EXAM: deferred Extremity: COMMON NORMALS: normal to inspection, full ROM and capillary refill normal Neuro: COMMON NORMALS: patient oriented x3, CN's II-XII intact bilaterally, moves all extremities, no focal motor deficits and no sensory deficits noted SENSORIUM/ORIENTATION: Yes alert, Yes oriented to person, Yes oriented to place and Yes oriented to time SPEECH: speech normal Psych: COMMON NORMALS: mental status grossly normal, Normal thought process present, cooperative, speech normal (Slightly tangential with conversation), denies hallucinations, denies homicidal ideation and denies suicidal ideation SPEECH: Yes normal speech (Slightly tangential with conversation) THOUGHT PROCESS: Normal thought process present ATTENTION/CONCENTRATION: Yes attention grossly intact MEMORY/COGNITION: Yes memory grossly intact Skin: COMMON NORMALS: no rashes or lesions noted GENERAL SKIN EXAM: no rashes or lesions noted Course Vital Signs: Vital signs: Vital Signs Temperature 98.5 F 07/10/23 14:40 Pulse Rate 85 07/10/23 14:40 Respiratory Rate 18 07/10/23 14:40 Blood Pressure 126/70 07/10/23 14:40 Pulse Oximetry 98 07/10/23 14:40 Oxygen Delivery Me thod Room Air 07/10/23 14:40 MDM - Psych Medical Decision Making This patient was seen and evaluated in the emergency department today due to anxiety and alcohol use which she started at 0500 this morning. Patient reports history of PTSD and anxiety, and states that she has not seen her primary care provider or been to [facility] in the past year. From initial examination, she stated that her primary goal is to get in the [facility] and to be given resources to do so, as she believes she needs to be on medication chronically for her PTSD as well as to stop drinking alcohol. Vitals are normal. Patient had stench of alcohol and was visibly intoxicated, but otherwise she exhibited no neurological or psychiatric effects. She denied any suicidal or homicidal ideations and states she has not had a plan to kill himself. She states that even if she wanted to kill herself, she would not because of her children. Her only complaints at this time are being hungry and wanting to leave to eat with her . I spoke with the , who confirms that she has been drinking more recently and that she needs to get into [facility] to be put on medication. He states that at home, she has not verbalized any intent to hurt herself or others and has not acted out of the ordinary aside from increased alcohol intake for the past year. He says that if given the resources, they would have been to [facility] a long time ago but that they have not due to this issue. He wants the patient given something for acute anxiety, but otherwise he is okay to take the patient home with appropriate resources and follow-up to [facility] [place]. I discussed this with the patient thoroughly, and further confirmed that she had no thoughts of hurting herself or others, as well as no hallucinations or other psychiatric symptoms. The patient will be given an IM dose of Ativan prior to discharge, and I thoroughly discussed with her that if she starts having thoughts of harming herself or others, or is hallucinating, to return immediately for further workup and evaluation. She is in agreements with this. I discussed this plan with mid shift , Who agrees. Patient will be discharged home with . Medical Records I reviewed the patient's medical records. No radiology studies performed this visit Discharge Plan Discharge Patient Disposition: Home Clinical Impression: Anxiety, Alcohol use Condition: Stable Prescriptions: No Action ibuprofen 200 mg Capsule 800 mg PO Q6H PRN (Reason: Pain) Discharge Orders: Discharge ED (Routine); Ordered 07/10/23 Ordered By: Russell Ding Referrals: Julián Yañez MD [Primary Care Provider] - Discharge Diet: Usual diet Discharge Activity: Increase activity as tolerated Patient Instructions: Abuse of Alcohol (ED), Anxiety (ED) Activity Restrictions/Additional Instructions: Follow-up with [facility] as directed. Refrain from alcohol use. If you develop any thoughts of wanting to harm yourself or others, any hallucinations, or other concerning symptoms, please return to the emergency department immediately. Coding Level of Care Code ED Feedlot Manager for Chg Fwd Documented by User: Naga Coreas DO 07/12/23 06:40 HPI - Psych General: Chief Complaint: Psychiatric Symptoms Stated Complaint: MHE Time Seen by Provider: 07/10/23 14:49 PFSH ED PFSH: Medical History No pertinent past medical history No pertinent family history Social History Smoking and tobacco/nicotine status: current every day tobacco/nicotine user Course Vital Signs: Vital signs: Vital Signs Temperature 98.5 F 07/10/23 14:40 Pulse Rate 85 07/10/23 14:40 Respiratory Rate 18 07/10/23 14:40 Blood Pressure 126/70 07/10/23 14:40 Pulse Oximetry 98 07/10/23 14:40 Oxygen Delivery Me thod Room Air 07/10/23 14:40 MDM - Psych Medical Decision Making This patient was seen and evaluated in the emergency department today due to anxiety and alcohol use which she started at 0500 this morning. Patient reports history of PTSD and anxiety, and states that she has not seen her primary care provider or been to [facility] in the past year. From initial examination, she stated that her primary goal is to get in the [facility] and to be given resources to do so, as she believes she needs to be on medication chronically for her PTSD as well as to stop drinking alcohol. Vitals are normal. Patient had stench of alcohol and was visibly intoxicated, but otherwise she exhibited no neurological or psychiatric effects. She denied any suicidal or homicidal ideations and states she has not had a plan to kill himself. She states that even if she wanted to kill herself, she would not because of her children. Her only complaints at this time are being hungry and wanting to leave to eat with her . I spoke with the , who confirms that she has been drinking more recently and that she needs to get into [facility] to be put on medication. He states that at home, she has not verbalized any intent to hurt herself or others and has not acted out of the ordinary aside from increased alcohol intake for the past year. He says that if given the resources, they would have been to [facility] a long time ago but that they have not due to this issue. He wants the patient given something for acute anxiety, but otherwise he is okay to take the patient home with appropriate resources and follow-up to [facility] [place]. I discussed this with the patient thoroughly, and further confirmed that she had no thoughts of hurting herself or others, as well as no hallucinations or other psychiatric symptoms. The patient will be given an IM dose of Ativan prior to discharge, and I th oroughly discussed with her that if she starts having thoughts of harming herself or others, or is hallucinating, to return immediately for further workup and evaluation. She is in agreements with this. I discussed this plan with mid shift , Who agrees. Patient will be discharged home with . Chart reviewed and patient discussed with midlevel. Agree with assessment and plan. Discharge Plan Discharge Patient Disposition: Home Clinical Impression: Anxiety, Alcohol use Condition: Stable Prescriptions: No Action ibuprofen 200 mg Capsule 800 mg PO Q6H PRN (Reason: Pain) Discharge Orders: Discharge ED (Routine); Ordered 07/10/23 Ordered By: Russell Ding Referrals: Julián Yañez MD [Primary Care Provider] - Discharge Diet: Usual diet Discharge Activity: Increase activity as tolerated Patient Instructions: Abuse of Alcohol (ED), Anxiety (ED) Activity Restrictions/Additional Instructions: Follow-up with [facility] [place] as directed. Refrain from alcohol use. If you develop any thoughts of wanting to harm yourself or others, any hallucinations, or other concerning symptoms, please return to the emergency department immediately. Coding Level of Care Code ED Feedlot Manager for Yung Melendez
== END 2023-07-10 15:48 | disposition home or self-care (01) ==
PROVIDERS: Emergency Provider Physician Assistant; PCP Family Medicine
DX: F41.9 Anxiety disorder, unspecified (principal); F10.90 Alcohol use, unspecified, uncomplicated; Z72.0 Tobacco use
CPT/HCPCS: 99283

== ENCOUNTER 2023-07-15 04:59 | Emergency (ER) | payer BC, MEDICAID, SELFPAY ==
[2023-07-15 05:09] VITALS: BP 122/89; PULSE 87; RESP 16; TEMP 36.7; O2SAT 94; BMI 24.5
[2023-07-15 05:43] LABS: Add Urine Microscopic? NO; Charge for UA Resulting for Rev
[2023-07-15 05:47] LABS: Basophils % 0.5 %; Eosinophils # 0.2 10^3/uL (0.0-0.8); Eosinophils % 2.8 %; Hematocrit 40.8 % (36-47); Lymphocytes # 1.9 10^3/uL (0.8-4.8); Lymphocytes % 28.8 %; Mean Corpuscular HGB Conc 34.1 g/dL (30-55); Mean Corpuscular Hemoglobin 30.7 pg (27-33); Mean Corpuscular Volume 90.1 fl (85-98); Mean Platelet Volume 9.1 fL (7.4-10.4); Monocytes # 0.6 10^3/uL (0.2-0.9); Monocytes % 8.9 %; Neutrophils # 3.82 10^3/uL (1.8-7.7); Neutrophils % 58.7 %; Nucleated Red Blood Cells % 0 %; Platelet Count 245 10^3/cmm (157-399); Red Blood Count 4.53 10^6/uL (3.85-5.65); Red Cell Distribution Width 14.3 % (12.1-15.1)
[2023-07-15 05:48] LABS: HCG Qualitative Urine. Negative (Negative)
[2023-07-15 05:48] LABS: Bilirubin Urine Neg (Negative); Blood Urine Neg (Negative); Glucose Urine UA Norm (Normal); Ketones Urine Negative (Negative); Leukocyte Esterase Urine Negative (Negative); Nitrate Urine Negative (Negative); Protein Urine Neg (Negative); Specific Gravity, Urine 1.005 (1.005-1.030); Urine Appearance Clear (CLEAR); Urine Color Colorless (Yellow); Urobilinogen Urine Neg (Negative); pH Urine 6 (5-7)
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
[2023-07-15 05:54] LABS: Amphetamines Screen Urine Negative (Negative); Barbiturates Screen Urine Negative (Negative); Benzodiazepines Screen Urine Negative (Negative); Cocaine Screen Urine Negative (Negative); Opiate Screen Urine Negative (Negative); PCP Screen Urine Negative (Negative); THC Screen Urine Negative (Negative)
[2023-07-15 06:06] LABS: Acetaminophen < 5.0 ug/mL (10-30); Alanine Aminotransferase 15 U/L (0-33); Albumin Level 4.2 g/dL (3.5-5.2); Alcohol Level 264 mg/dL (0-10); Alkaline Phosphatase 99 U/L (35-105); Anion Gap 14.8 (5-19); Aspartate Amino Transferase 19 U/L (0-32); Blood Urea Nitrogen 10 mg/dL (6-20); Calcium 8.6 mg/dL (8.5-10.5); Carbon Dioxide 20 mmol/L (22-29); Chloride 114 mmol/L (98-107); Creatinine Clr Calc Pharmacy 122.1736; Globulin 2.5 g/dL (1.3-4.6); Glucose 93 mg/dL (65-115); Osmolality Calculated 299 mOsm/kg (285-295); Potassium 3.8 mmol/L (3.5-5.1); Salicylate < 0.3 mg/dL (3-10); Sodium 145 mmol/L (136-145); Total Bilirubin 0.2 mg/dL (0.15-1.2); Total Protein 6.7 g/dL (6.6-8.7)
== END 2023-07-15 11:20 | disposition home or self-care (01) ==
PROVIDERS: Emergency Medicine; Emergency Provider Family Medicine
DX: F41.9 Anxiety disorder, unspecified (principal); F32.A Depression, unspecified; F10.90 Alcohol use, unspecified, uncomplicated; Z72.0 Tobacco use
CPT/HCPCS: 80053; 80306; 80307; 81003; 81025; 85025; 99283

== ENCOUNTER 2023-07-15 12:50 | Emergency (ER) | payer BC, MEDICAID, SELFPAY ==
[2023-07-15 12:53] VITALS: BP 140/84; PULSE 92; RESP 16; TEMP 36.9; O2SAT 96; BMI 28.3
--- NOTE | 2023-07-15 13:05 | ED.C_ITS ---
HPI - Psych General: Chief Complaint: Psychiatric Symptoms Stated Complaint: psych eval Time Seen by Provider: 07/15/23 12:52 Source: patient and EMS Mode of arrival: EMS Limitations: no limitations History of Present Illness: 43-year-old female seen here earlier torosa logan she states she is discharged she went to [facility] to make appointment states the longer that she sat there she states she was in her head and was having thoughts of hurting herself. She states she denies being suicidal does not want to kill herself but states she is having thoughts of burning herself and to cause physical harm to herself. Associated symptoms: Reports depression Review of Systems Const: Denies: fever(s), chills, body aches or change in appetite Eyes: Denies: blurry vision or eye discomfort Card: Denies: chest pain Resp: Denies: dyspnea GI: Denies: abdominal pain, nausea, vomiting or diarrhea Musc: Denies: neck pain or back pain Skin/Breast: Denies: rash Neuro: Denies: headache(s) Psych: Reports: depression and hopelessness [facility] ED PFSH: Medical History No pertinent past medical history No pertinent family history Social History Smoking and tobacco/nicotine status: current every day tobacco/nicotine user Physical Exam Const: COMMON NORMALS: no acute distress, patient oriented x3 and healthy appearing HENMT: COMMON NORMALS: normocephalic and atraumatic HEAD & SCALP: normocephalic and atraumatic Neck/C-Spine: COMMON NORMALS: full ROM and supple Chest: COMMONS NORMALS: normal inspection of the chest Resp: COMMON NORMALS: normal respiratory effort Cardio: COMMON NORMALS: regular rate, regular rhythm and No murmurs present (Cardio) RATE: regular rate RHYTHM: regular rhythm Extremity: COMMON NORMALS: normal to inspection and full ROM Neuro: COMMON NORMALS: patient oriented x3, moves all extremities and no focal motor deficits Psych: COMMON NORMALS: mental status grossly normal, Normal thought process present and cooperative MOOD & AFFECT: Yes depressed mood THOUGHT PROCESS: Normal thought process present Skin: COMMON NORMALS: no rashes or lesions noted and no wounds GENERAL SKIN EXAM: no rashes or lesions noted Course Vital Signs: Vital signs: Vital Signs Temperature 98.4 F 07/15/23 12:53 Pulse Rate 85 07/15/23 13:36 Respiratory Rate 16 07/15/23 12:53 Blood Pressure 126/87 07/15/23 13:36 Pulse Oximetry 96 07/15/23 13:36 MDM - Psych Medical Decision Making Patient presents here with depression she is not suicidal or homicidal patient is very well-known to the ER she had been medically cleared and discharged today she was sent back due to some self-harm thoughts she states she is just gets angry at herself but does not want to kill herself and has no thoughts of killing herself I spoke to our psychiatrist Dr. Sahni he recommended discharge we will discharge her with information for crisis stabilization unit. Medical Records I reviewed the patient's medical records. No radiology studies performed this visit Discharge Plan Discharge Patient Disposition: Home Clinical Impression: Alcohol use Depression Qualifiers: Depression Type: unspecified Qualified Code(s): F32.A - Depression, unspecified Condition: Stable Prescriptions: No Action ibuprofen 200 mg Capsule 800 mg PO Q6H PRN (Reason: Pain) Discharge Orders: Discharge ED (Routine); Ordered 07/15/23 Ordered By: Destiny Jin Discharge Diet: Advance as tolerated Discharge Activity: Resume usual activity Patient Instructions: Depression (ED) Coding Level of Care Code ED Offensive Coordinator for Yung Melendez
[2023-07-15] MEDS: ibuprofen 800 mg tablet PO (13:34)
[2023-07-15 13:36] VITALS: BP 126/87; PULSE 85; O2SAT 96
== END 2023-07-15 13:43 | disposition home or self-care (01) ==
PROVIDERS: Emergency Provider Emergency Medicine
DX: F32.A Depression, unspecified (principal); F10.90 Alcohol use, unspecified, uncomplicated; Z72.0 Tobacco use
CPT/HCPCS: 99283

== ENCOUNTER 2023-07-20 02:37 | Emergency (ER) | payer BC, MEDICAID, SELFPAY ==
[2023-07-20 02:52] VITALS: BP 132/80; PULSE 89; RESP 16; TEMP 36.6; O2SAT 97
[2023-07-20 03:33] LABS: Add Urine Microscopic? NO; Charge for UA Resulting for Rev
[2023-07-20 03:33] LABS: Basophils % 0.6 %; Eosinophils # 0.2 10^3/uL (0.0-0.8); Eosinophils % 2.9 %; Hematocrit 39.7 % (36-47); Lymphocytes # 2.5 10^3/uL (0.8-4.8); Lymphocytes % 35.7 %; Mean Corpuscular HGB Conc 33.8 g/dL (30-55); Mean Corpuscular Hemoglobin 30.4 pg (27-33); Mean Platelet Volume 9.2 fL (7.4-10.4); Monocytes # 0.7 10^3/uL (0.2-0.9); Monocytes % 10.2 %; Neutrophils % 50.5 %; Nucleated Red Blood Cells % 0 %; Platelet Count 265 10^3/cmm (157-399); Red Blood Count 4.41 10^6/uL (3.85-5.65); Red Cell Distribution Width 14.3 % (12.1-15.1); White Blood Count 6.94 10^3/uL (3.29-11.43)
[2023-07-20] MEDS: sodium chloride 0.9% 1,000 ML 999 ML IV ×2 (03:36→05:37)
[2023-07-20 03:39] LABS: HCG Qualitative Urine. Negative (Negative)
[2023-07-20 03:40] LABS: Bilirubin Urine Neg (Negative); Blood Urine Neg (Negative); Glucose Urine UA Norm (Normal); Ketones Urine Negative (Negative); Leukocyte Esterase Urine Negative (Negative); Nitrate Urine Negative (Negative); Protein Urine Neg (Negative); Urine Appearance Clear (CLEAR); Urine Color Straw (Yellow); Urobilinogen Urine Neg (Negative); pH Urine 5 (5-7)
[2023-07-20 03:43] LABS: Amphetamines Screen Urine Negative (Negative); Barbiturates Screen Urine Negative (Negative); Benzodiazepines Screen Urine Negative (Negative); Cocaine Screen Urine Negative (Negative); Opiate Screen Urine Negative (Negative); PCP Screen Urine Negative (Negative); THC Screen Urine Positive (Negative)
[2023-07-20 03:55] LABS: Alanine Aminotransferase 22 U/L (0-33); Albumin Level 4.3 g/dL (3.5-5.2); Alkaline Phosphatase 102 U/L (35-105); Anion Gap 17.7 (5-19); Aspartate Amino Transferase 32 U/L (0-32); Blood Urea Nitrogen 11 mg/dL (6-20); Calcium 8.7 mg/dL (8.5-10.5); Carbon Dioxide 20 mmol/L (22-29); Chloride 109 mmol/L (98-107); Creatinine Clr Calc Pharmacy 110.6471; Globulin 2.7 g/dL (1.3-4.6); Glomerular Filtration Rate 110.2 mL/min (90-130); Glucose 81 mg/dL (65-115); Osmolality Calculated 294 mOsm/kg (285-295); Potassium 3.7 mmol/L (3.5-5.1); Sodium 143 mmol/L (136-145); Total Bilirubin 0.2 mg/dL (0.15-1.2)
[2023-07-20 03:56] LABS: Acetaminophen < 5.0 ug/mL (10-30); Salicylate < 0.3 mg/dL (3-10)
[2023-07-20 03:57] LABS: Alcohol Level 305 mg/dL (0-10)
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
== END 2023-07-20 06:32 | disposition home or self-care (01) ==
PROVIDERS: Emergency Provider Internal Medicine
DX: F32.A Depression, unspecified (principal); F10.129 Alcohol abuse with intoxication, unspecified; Y90.8 Blood alcohol level of 240 mg/100 ml or more; Z72.0 Tobacco use
CPT/HCPCS: 80053; 80306; 80307; 81003; 81025; 85025; 96360; 96361; 99284; J7030

== ENCOUNTER 2023-08-12 00:15 | Emergency (ER) | payer BC, MEDICAID, SELFPAY ==
[2023-08-12 00:16] VITALS: BP 114/78; PULSE 89; RESP 16; TEMP 36.4; O2SAT 95; BMI 27.6
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
[2023-08-12] MEDS: orphenadrine 30 mg/mL Inj 2 mL 60 MG IM (00:32)
[2023-08-12] MEDS: ketorolac 60 mg/2 mL INJ IM (00:32)
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
[2023-08-12 03:26] VITALS: BP 114/78; PULSE 78; RESP 16; O2SAT 97
== END 2023-08-12 03:28 | disposition home or self-care (01) ==
PROVIDERS: Emergency Provider Emergency Medicine; PCP Family Medicine
DX: M54.50 Low back pain, unspecified (principal); Y04.2XXA Assault by strike against or bumped into by another person, initial encounter; Y07.010 Husband, current, perpetrator of maltreatment and neglect; Z72.0 Tobacco use
CPT/HCPCS: 72100; 96372; 99284; J1885; J2360

== ENCOUNTER → 2023-08-20 11:21 | Outpatient (BNVA) | payer BC, MEDICAID, SELFPAY | PROVIDERS: PCP Family Medicine; Visit Provider Nurse Practitioner Psychiatric/Mental Health | DX: Z79.899 Other long term (current) drug therapy (principal); F10.20 Alcohol dependence, uncomplicated; F43.12 Post-traumatic stress disorder, chronic; R45.88 Nonsuicidal self-harm; F15.21 Other stimulant dependence, in remission; F60.89 Other specific personality disorders; F17.210 Nicotine dependence, cigarettes, uncomplicated | CPT/HCPCS: 80053; 80061; 80307; 83036 ==

== ENCOUNTER 2023-10-02 19:10 | Emergency (ER) | payer BC, MEDICAID, SELFPAY ==
[2023-10-02] VITALS (10 sets, daily range): BP systolic 91–117; BP diastolic 60–78; PULSE 66–114; RESP 14–25; TEMP 36.9; O2SAT 91–97; BMI 27.4
--- NOTE | 2023-10-02 19:14 | ECG_ITS ---
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 Measurements Intervals [place] Rate: 96 P: 56 MT: 175 QRS: 38 QRSD: 88 T: 39 QT: 357 QTc: 452 Interpretive Statements SINUS RHYTHM POSSIBLE LEFT ATRIAL ENLARGEMENT [-0.1mV P-WAVE IN V1/V2] Compared to ECG 11/10/2022 15:34:35 No significant changes Electronically Signed On 10-02-2023 20:24:13 CDT by Helene Carter M.D. [id number]
--- NOTE | 2023-10-02 19:14 | XRR_ITS ---
PROCEDURE INFORMATION: Exam: XR Chest Exam date and time: 10/02/2023 7:27 PM Age: 43 years old Clinical indication: Screening exam; Other screening; Patient HX: Mhe; Si; Cough; Additional info: Suicidal ideation TECHNIQUE: Imaging protocol: Radiologic exam of the chest. Views: 1 view. COMPARISON: CR XR chest 1V portable [id number] 12/11/2021 3:06 AM FINDINGS: Airway: The airways are patent. Lungs: No acute interstitial or airspace disease. Pleural spaces: No pleural effusions or pneumothorax. Heart/Mediastinum: Cardiomediastinal silhouette is magnified due to technique. Bones/joints: No acute skeletal abnormality or aggressive osseous lesion. XR/XR chest 1V portable [id number] IMPRESSION: No acute findings.
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
[2023-10-02 19:40] LABS: Basophils % 0.4 %; Eosinophils # 0.1 10^3/uL (0.0-0.8); Eosinophils % 2.3 %; Lymphocytes # 1.6 10^3/uL (0.8-4.8); Lymphocytes % 29.3 %; Mean Corpuscular HGB Conc 33.3 g/dL (30-55); Mean Corpuscular Hemoglobin 29.6 pg (27-33); Mean Corpuscular Volume 88.8 fl (85-98); Mean Platelet Volume 9.3 fL (7.4-10.4); Monocytes # 0.4 10^3/uL (0.2-0.9); Neutrophils # 3.21 10^3/uL (1.8-7.7); Neutrophils % 60.6 %; Nucleated Red Blood Cells % 0 %; Platelet Count 223 10^3/cmm (157-399); Red Blood Count 4.39 10^6/uL (3.85-5.65); Red Cell Distribution Width 13.9 % (12.1-15.1); White Blood Count 5.29 10^3/uL (3.29-11.43)
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
[2023-10-02 19:57] LABS: Alanine Aminotransferase 16 U/L (0-33); Albumin Level 4.3 g/dL (3.5-5.2); Alcohol Level 253 mg/dL (0-10); Alkaline Phosphatase 108 U/L (35-105); Anion Gap 16.5 (5-19); Aspartate Amino Transferase 24 U/L (0-32); Blood Urea Nitrogen 9 mg/dL (6-20); Calcium 8.1 mg/dL (8.5-10.5); Carbon Dioxide 23 mmol/L (22-29); Chloride 107 mmol/L (98-107); Creatinine Clr Calc Pharmacy 103.2674; Globulin 2.6 g/dL (1.3-4.6); Glomerular Filtration Rate 92.2 mL/min (90-130); Glucose 85 mg/dL (65-115); Osmolality Calculated 294 mOsm/kg (285-295); Potassium 3.5 mmol/L (3.5-5.1); Sodium 143 mmol/L (136-145); Total Bilirubin 0.4 mg/dL (0.15-1.2); Total Protein 6.9 g/dL (6.6-8.7)
[2023-10-02 20:02] LABS: Acetaminophen < 5.0 ug/mL (10-30); Salicylate < 0.3 mg/dL (3-10)
[2023-10-02 20:15] LABS: Thyroid Stimulating Hormone 1.38 uIU/mL (0.27-4.20)
[2023-10-02 20:24] LABS: SARS Covid-2 Antigen negative (Negative)
[2023-10-02 20:28] LABS: Influenza A by IFA Negative (Negative); Influenza B by IFA Negative (Negative)
[2023-10-02 22:47] LABS: Amphetamines Screen Urine Negative (Negative); Barbiturates Screen Urine Negative (Negative); Benzodiazepines Screen Urine Negative (Negative); Cocaine Screen Urine Negative (Negative); Opiate Screen Urine Negative (Negative); PCP Screen Urine Negative (Negative); THC Screen Urine Positive (Negative)
[2023-10-02 22:49] LABS: Add Urine Microscopic? YES; Bilirubin Urine Neg (Negative); Blood Urine Neg (Negative); Glucose Urine UA Norm (Normal); Ketones Urine Negative (Negative); Leukocyte Esterase Urine Negative (Negative); Nitrate Urine Negative (Negative); Protein Urine Neg (Negative); Specific Gravity, Urine 1.025 (1.005-1.030); Urine Appearance Cloudy (CLEAR); Urine Color Yellow (Yellow); Urobilinogen Urine Neg (Negative); pH Urine 5 (5-7)
[2023-10-02 22:50] LABS: Bacteria Urine TRACE /hpf; HCG Qualitative Urine. Negative (Negative); Mucus Urine 3+ /hpf; RBC Urine 0-4 /hpf (0-2); Squamous Epithelial Cell Urine 0-4 /hpf (0-5)
[2023-10-02 23:27] LABS: Alcohol Level 154 mg/dL (0-10)
--- NOTE | 2023-10-02 23:32 | PC.NURSE ---
PT CONTINUES TO BE LIGHTLY SEDATED FROM EMS. PT IS AROUSABLE.
[2023-10-03] VITALS (15 sets, daily range): BP systolic 95–121; BP diastolic 54–83; PULSE 70–97; RESP 13–31; O2SAT 91–98
--- NOTE | 2023-10-03 03:05 | PC.NURSE ---
ATTEMPT TO CALL REPORT X2 TO [facility]. NO ANSWER AT NURSE'S STATION. CALLS PLACED AT [phone] AND [phone].
--- NOTE | 2023-10-03 04:01 | PC.NURSE ---
PT UP TO BATHROOM WITH [facility]. UPON RETURN TO ROOM, PT STATES THAT THE LAST THING SHE REMEMBERS IS YESTERDAY WHEN HER WAS YELLING AT HER. HER HAS BEEN ADMITTED TO THE [facility] SINCE YESTERDAY AFTERNOON. PT DENIES MEMORY OF THE BEHAVIOR THAT BROUGHT HER IN AND DENIES SUICIDAL IDEATIONS.
[2023-10-03 06:50] LABS: Alcohol Level < 10 mg/dL (0-10)
== END 2023-10-03 08:32 ==
PROVIDERS: Emergency Medicine; Emergency Provider Emergency Medicine; PCP Family Medicine
DX: R45.851 Suicidal ideations (principal); Z11.52 Encounter for screening for COVID-19; Z72.0 Tobacco use
CPT/HCPCS: 36415; 71045; 80053; 80306; 80307; 81001; 81025; 84443; 85025; 87426; 87804; 93005; 99285

== ENCOUNTER → 2024-04-24 09:26 | Outpatient (BNVA) | payer BC, SELFPAY | PROVIDERS: PCP Family Medicine; Visit Provider Specialist | DX: M25.561 Pain in right knee (principal); S83.206A Unspecified tear of unspecified meniscus, current injury, right knee, initial encounter; W19.XXXA Unspecified fall, initial encounter; G89.29 Other chronic pain | CPT/HCPCS: 73560; 73565 ==

== ENCOUNTER 2024-05-04 08:45 | Outpatient (CLI) | payer BC, MEDICAID, SELFPAY ==
--- NOTE | 2024-05-04 08:45 | MR_ITS ---
WS: [id number] MRI RIGHT KNEE NONCONTRAST TECHNIQUE: Axial PD, coronal PD fat sat, coronal PD, sagittal PD, and sagittal PD fat-sat images obta ined. CLINICAL INFORMATION: RIGHT KNEE COMPARISON: None. FINDINGS: Distal quadriceps and patella tendons are intact. Normal ACL and PCL. Mild tricompartmental arthritis . Medial and lateral meniscus are normal in appearance with mild chronic thinning. No acute appearing meniscal tears. Mild chondromalacia patella. Medial and lateral patellar retinaculum are intact. Sma ll suprapatellar effusion. Normal medial and lateral collateral ligaments. Mild peripheral extrusion of the lateral meniscus. Normal popliteus. No other acute findings. MR/MR knee RT wo con* [id number] IMPRESSION: 1. Normal ACL and PCL. 2. Chronic thinning of the medial lateral meniscus. No acute appearing menisca l tears. 3. Mild tricompartment arthritis. 4. Mild chondromalacia patella with a small suprapatellar effusion. 5. Medial lateral collateral ligaments appear intact. Outbridge grading: grade II: blister-like swelling/fraying of articular cartila ge extending to surface
== END 2024-05-04 08:49 | disposition home or self-care (01) ==
PROVIDERS: PCP Family Medicine; Visit Provider Specialist
DX: M23.200 Derangement of unspecified lateral meniscus due to old tear or injury, right knee (principal); M25.461 Effusion, right knee
CPT/HCPCS: 73721

== ENCOUNTER 2024-07-03 11:43 | Emergency (ER) | payer BC, MEDICAID, SELFPAY ==
[2024-07-03 11:55] VITALS: BP 117/84; PULSE 70; TEMP 36.4; O2SAT 96; BMI 30.8
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
[2024-07-03 15:05] VITALS: BP 107/69; PULSE 73; O2SAT 97
== END 2024-07-03 15:00 | disposition home or self-care (01) ==
PROVIDERS: Emergency Provider Physician Assistant; PCP Family Medicine
DX: S60.221A Contusion of right hand, initial encounter (principal); V89.2XXA Person injured in unspecified motor-vehicle accident, traffic, initial encounter; F17.210 Nicotine dependence, cigarettes, uncomplicated
CPT/HCPCS: 73110; 73130; 99283